=== PATIENT | female | born 1960 | race Caucasian/White ===

== ENCOUNTER 2020-07-13 10:34 | Emergency (ER) | payer BC, SELFPAY ==
--- NOTE | 2020-07-13 10:36 | ED.GENADULT ---
HPI - General Adult General Chief complaint: Chest Pain Stated complaint: nausea,trembling in both hands Time Seen by Provider: 07/13/20 10:36 Source: patient Mode of arrival: ambulatory Limitations: no limitations History of Present Illness HPI narrative: 59-year-old female patient presents to the [facility] with complaints of tremor to the right hand and nausea along with chest pain. Patient states that she was in her kitchen this morning and went to go and recheck with her right hand to get some coffee out of the cabinet and states she started having a tingling sensation to the right side of her head and did feel little lightheaded and dizzy. Patient states that she did start having a tremor to her right hand and developed some nausea. Patient states that this started about 10 AM this morning. Patient states what that when she arrived to the clinic today she started having a little bit of chest tightness. Denies any vomiting. Denies any fevers, body aches or chills. Patient denies taking any medications. Denies any medical history. Patient states she is an active smoker. Review of Systems Review of Systems: Narrative: CONSTITUTIONAL: Denies fever, chills, or sweats. EYES: Denies visual changes, redness, or discharge. ENT: Denies rhinorrhea, congestion, sore throat, or otalgia. CARDIOVASCULAR: Positive chest pain, denies palpitations, or edema. RESPIRATORY: Denies cough or dyspnea. GASTROINTESTINAL: Denies abdominal pain, nausea, vomiting, or diarrhea. GENITOURINARY: Denies dysuria or hematuria. SKIN: Denies rash or itching. MUSCULOSKELETAL: Denies back pain, joint pain, or myalgia. NEUROLOGIC: Positive headache, denies numbness, positive right-sided weakness with tremor to the right hand. PSYCHIATRIC: Denies anxiety or depression. [facility] Surgical History Surgical History (Updated 07/13/20 @ 11:02 by TAMMIE Marcelo) History of appendectomy History of hysterectomy Hx of cholecystectomy Family History Family History (Updated 07/13/20 @ 11:03 by TAMMIE Marcelo) Other Acute myocardial infarction Heart disease Hypertension Social History Social History (Updated 07/13/20 @ 11:03 by TAMMIE Marcelo) Smoking status: Current every day smoker Comments At the time of my signature I agree with nursing past medical history, surgical, social, and family history. There is no relevant family history pertinent to the presenting complaint. Exam Narrative: Exam Narrative: GENERAL: Well-appearing, well-nourished, and in no acute distress. HEAD: Normocephalic, atraumatic. EYES: PERRLA and EOMI. ENT: Nares clear, no rhinorrhea or epistaxis. Mucous membranes moist. NECK: Supple. No lymphadenopathy CHEST: Slight expiratory rhonchi noted to bilateral upper lobes. No respiratory distress. Patient able talk in clear complete sentences. HEART: Regular rate and rhythm. No murmur heard. Normal peripheral pulses. ABDOMEN: Soft, nontender, nondistended, normal active bowel sounds. EXTREMITIES: Normal range of motion. No edema. SKIN: Warm, dry, no rash. NEURO: Alert and oriented x4, GCS 15. Cranial nerves II through XII grossly intact. No focal neurological deficits. Decreased muscle strength and tone to right upper extremity. Weakness to right upper extremity and right lower extremity. normal deep tendon reflexes. Decreased sensation to the right side of the face. Speech is clear. Normal gait. Negative Romberg and no pronator drift Course Vital Signs Vital signs: Vital Signs Temperature 36.7 C 07/13/20 10:45 Pulse Rate 98 07/13/20 10:45 Respiratory Rate 18 07/13/20 10:45 Blood Pressure 143/72 H 07/13/20 10:45 Pulse Oximetry 100 07/13/20 10:45 Temperature 36.7 C 07/13/20 10:45 Pulse Rate 98 07/13/20 10:45 Respiratory Rate 18 07/13/20 10:45 Blood Pressure 143/72 H 07/13/20 10:45 Pulse Oximetry 100 07/13/20 10:45 Vital signs reviewed. The patient has been informed that they ma
[2020-07-13 10:45] VITALS: BP 143/72; PULSE 98; RESP 18; TEMP 36.7; O2SAT 100
[2020-07-13 10:53] LABS: Glucose Point of Care 110 (65-105)
--- NOTE | 2020-07-13 11:03 | PC.NURSE ---
PT REPORTS SHE WAS REACHING FOR AN OBJECT THIS AM, AT WHICH SHE NOTICED TREMORS IN RT HAND AND ARM. PT STATES HER RT HAND AND LEG FEEL WEAK, SHE HAS NUMBNESS AND TINGLING TO RT SIDE. PT HAS DECREASED SENSATION TO RT SIDE OF FACE. PT REPORTS CHEST TIGHTNESS, NAUSEA. PT IS A & O x4, NO FACIAL DROOP NOTED.
[2020-07-13 11:07] VITALS: BP 143/72; PULSE 98; RESP 18; TEMP 36.7; O2SAT 100
[2020-07-13 11:24] LABS: Glucose Point of Care 103 (65-105)
--- NOTE | 2020-07-13 14:21 | ECG_ITS ---
Measurements Intervals [place] Rate: 93 P: 48 [place]: 143 QRS: -11 QRSD: 90 T: 18 QT: 370 QTc: 462 Interpretive Statements SINUS RHYTHM INCOMPLETE RIGHT BUNDLE BRANCH BLOCK BORDERLINE T WAVE ABNORMALITY- INFERIOR LEADS BORDERLINE ECG Electronically Signed On 07-13-2020 14:36:38 CDT by Hung Vo D.O.
== END 2020-07-13 11:00 | disposition short-term general hospital (02) ==
PROVIDERS: Emergency Provider Nurse Practitioner Family; PCP Internal Medicine
DX: M62.81 Muscle weakness (generalized) (principal); R07.9 Chest pain, unspecified; F17.200 Nicotine dependence, unspecified, uncomplicated
CPT/HCPCS: 93005; 99205; G0463

== ENCOUNTER 2020-07-13 11:14 | Emergency (ER) | payer BC, SELFPAY ==
--- NOTE | ~2020-07-13 | CT_ITS ---
EXAMINATION: CT brain wo con DATE: 07/13/2020 11:38 INDICATION: Dizziness. Right facial tingling. TECHNIQUE: Computed tomography (CT) of the head was performed without intravenous contrast. The mA wa s adjusted according to patient size. Iterative reconstruction technique was employed. The dose-lengt h product was 605.33 mGy-cm. COMPARISON: None FINDINGS: There is no intracranial hemorrhage, acute infarction, or abnormal intracranial mass lesion . The ventricles are normal in size. There is mild mucosal thickening in the ethmoid sinuses. The mas toid air cells are normal. IMPRESSION: 1. Normal brain. Reviewed, dictated and finalized at location A. IMPRESSION: 1. Normal brain.
--- NOTE | ~2020-07-13 | XR_ITS ---
EXAMINATION: XR chest 1V DATE: 07/13/2020 11:45 INDICATION: Chest pressure. Right arm tingling. TECHNIQUE: A single frontal view of the chest was obtained. COMPARISON: None. FINDINGS: The chest demonstrates clear lungs without pneumonia, pleural effusion, or pneumothorax. Th e heart size is normal. IMPRESSION: 1. No acute cardiopulmonary disease. Reviewed, dictated and finalized at location A.
[2020-07-13 11:21] VITALS: BP 137/93; PULSE 79; RESP 15; TEMP 36.9; O2SAT 99
--- NOTE | 2020-07-13 11:24 | ECG_ITS ---
Measurements Intervals [place] Rate: 80 P: 27 UT: 151 QRS: 83 QRSD: 86 T: 56 QT: 373 QTc: 431 Interpretive Statements SINUS RHYTHM DELAYED PRECORDIAL R/S TRANSITION BASELINE ARTIFACT- V5 BORDERLINE ECG Electronically Signed On 07-13-2020 12:03:10 CDT by Hung Vo D.O.
[2020-07-13 11:31] VITALS: PULSE 80
[2020-07-13 12:09] VITALS: PULSE 79; RESP 13; O2SAT 97
[2020-07-13 12:15] VITALS: PULSE 72; RESP 12; O2SAT 100
[2020-07-13 12:15] LABS: Basophils Percent Auto 0.3 % (0.2-1.2); Eosinophils Absolute Auto 0.1 K/mm3 (0-0.3); Hematocrit 45.1 % (37.0-47.0); Hemoglobin 14.6 g/dL (12.0-15.0); Immature Granulocyte Absolute 0.03 K/mm3 (0.00-0.031); Immature Granulocyte Percent A 0.3 % (0-0.5); Lymphocytes Absolute Auto 2.68 K/mm3 (0.9-3.2); Lymphocytes Percent Auto 29.2 % (18.3-44.2); Mean Corpuscular HGB Conc 32.4 g/dl (32-36); Mean Corpuscular Hemoglobin 32.3 pg (26-34); Mean Corpuscular Volume 99.8 fl (80-100); Mean Platelet Volume 10.3 fl (7.4-10.4); Monocytes Absolute Auto 0.5 K/mm3 (0.1-0.6); Monocytes Percent Auto 5.2 % (2.6-8.5); Neutrophils Absolute Auto 5.9 K/mm3 (1.3-6.7); Platelet Count Result 243 k/mm3 (150-375); Red Blood Count 4.52 M/mm3 (4.2-5.4); Red Cell Distribution Width 12.5 % (11.5-14.5); White Blood Count 9.2 K/mm3 (4.5-10.0)
[2020-07-13 12:16] VITALS: BP 115/66; PULSE 73; RESP 14; O2SAT 100
[2020-07-13 12:27] LABS: Alanine Aminotransferase 13 U/L (4-35); Albumin Level 4.6 g/dL (3.5-5.1); Alkaline Phosphatase 109 U/L (38-126); Anion Gap 10 mmol/L (8-16); Aspartate Amino Transferase 23 U/L (14-36); Bilirubin,Total 0.6 mg/dL (0.2-1.3); Blood Urea Nitrogen 9 mg/dL (7-17); Calcium 9.5 mg/dL (8.4-10.2); Carbon Dioxide 26 mmol/L (22-30); Chloride 105 mmol/L (98-107); Estimated CRCL calculation 77 ml/min; Estimated Glomerular Filt Rate > 60; Glucose 100 mg/dL (65-105); Potassium 3.8 mmol/L (3.4-5.0); Sodium 141 mmol/L (137-145)
[2020-07-13 12:35] LABS: Add Urine Microscopic? YES; Appearance Urine Clear (Clear); Bacteria Urine Trace /hpf; Bilirubin Urine Negative (Negative); Blood Urine 1+ (Negative); Color Urine Colorless (Yellow); Glucose Urine UA Negative (Negative); Ketones Urine Negative (Negative); Leukocyte Esterase Ur Negative LEU/UL (Negative); Nitrate Urine Negative (Negative); Protein Urine Negative (Negative); RBC Urine 0-2 /hpf (0-2); Squamous Epithelial Cell Urine Rare /hpf (Few); Urobilinogen Urine Negative mg/dL (<2.0); WBC Urine 0-3 /hpf
[2020-07-13 12:38] LABS: Troponin I < 0.012 ng/mL (0.000-0.034)
[2020-07-13 12:42] LABS: Specific Grav Ur 1.004 (1.001-1.035)
--- NOTE | 2020-07-13 14:05 | ED.GENADULT ---
HPI - General Adult General Chief complaint: Unspecified Stated complaint: MULTIPLE C/O Time Seen by Provider: 07/13/20 11:24 Source: patient Mode of arrival: EMS Limitations: no limitations History of Present Illness HPI narrative: Patient presents from the urgent care with multiple complaints. Patient states that she was reaching for something with her right arm when her right arm began to shake. Patient states that she DM became concerned and noticed tingling to the right side of her face. Patient states she never had changes in vision, speech, headache, weakness. Patient states that she sat down and held her arm briefly and the symptoms resolved. Patient states that she did not ever have chest pain or shortness of breath but she did have some mild epigastric discomfort which resolved after a few minutes. Patient has history of ND or stroke. Patient reports that she is a smoker. Patient denies hormonal therapy. Patient does not have any symptoms upon arrival to the emergency department. Related Data Home Medications Medication Instructions Recorded Confirmed No Home Medications 07/13/20 07/13/20 Allergies Allergy/AdvReac Type Severity Reaction Status Date / Time azithromycin AdvReac Abdominal Verified 07/13/20 11:26 Pain morphine AdvReac Nausea and Verified 07/13/20 11:26 Vomiting Review of Systems Review of Systems: Narrative: CONSTITUTIONAL: Denies fever, chills, or sweats. EYES: Denies visual changes, redness, or discharge. ENT: Denies rhinorrhea, congestion, sore throat, or otalgia. CARDIOVASCULAR: Denies chest pain, palpitations, or edema. RESPIRATORY: Denies cough or dyspnea. GASTROINTESTINAL: Reports resolved epigastric discomfort denies abdominal pain, nausea, vomiting, or diarrhea. GENITOURINARY: Denies dysuria or hematuria. SKIN: Denies rash or itching. MUSCULOSKELETAL: Reports resolved tremor denies back pain, joint pain, or myalgia. NEUROLOGIC: Reports resolved tingling denies headache, numbness, dizziness, or weakness. PSYCHIATRIC: Denies anxiety or depression. REPLACED BY [facility] Surgical History Surgical History (Updated 07/13/20 @ 11:02 by TAMMIE Marcelo) History of appendectomy History of hysterectomy Hx of cholecystectomy Family History Family History (Updated 07/13/20 @ 11:03 by TAMMIE Marcelo) Other Acute myocardial infarction Heart disease Hypertension Social History Social History (Updated 07/13/20 @ 11:03 by RICHARD Marcelo Smoking status: Current every day smoker Exam Narrative: Exam Narrative: GENERAL: Well-appearing, well-nourished, and in no acute distress. HEAD: Normocephalic, atraumatic. EYES: PERRLA and EOMI. ENT: Nares clear, no rhinorrhea or epistaxis. Mucous membranes moist. Oropharynx without tonsillar hypertrophy exudate or other lesions. Bilateral TMs pearly clark nonbulging NECK: Supple. No adenopathy or masses. No carotid bruits or JVD CHEST: Clear to auscultation. No respiratory distress. No wheezes rales or rhonchi HEART: Regular rate and rhythm. No murmur heard. Normal peripheral pulses. ABDOMEN: Soft, nontender, nondistended, normal active bowel sounds. EXTREMITIES: No tremor noted to upper extremities. Normal range of motion. No edema. SKIN: Warm, dry, no rash. NEURO: No focal deficits. There is no facial asymmetry. Patient is able to smile, frown, raise eyebrows symmetrically. There is no upper or lower extremity deficits or unilateral deficits. Patient speech is appropriate. alert and oriented x3. PSYCH: Normal mood and affect. Course Vital Signs Vital signs: Vital Signs Temperature 98.4 F 07/13/20 11:21 Pulse Rate 79 07/13/20 11:21 Respiratory Rate 15 07/13/20 11:21 Blood Pressure 137/93 H 07/13/20 11:21 Pulse Oximetry 99 07/13/20 11:21 Temperature 98.4 F 07/13/20 11:21 Pulse Rate 73 07/13/20 12:16 Respiratory Rate 14 07/13/20 12:16 Blood Pressure 115/66 07/13/20 12:16 Pulse Oxim
== END 2020-07-13 14:18 | disposition home or self-care (01) ==
PROVIDERS: Physician Assistant; Emergency Provider Emergency Medicine
DX: R20.2 Paresthesia of skin (principal); M12.9 Arthropathy, unspecified; F17.200 Nicotine dependence, unspecified, uncomplicated; R94.31 Abnormal electrocardiogram [ECG] [EKG]
CPT/HCPCS: 36415; 70450; 71045; 80053; 81001; 84484; 85025; 93005; 99284

== ENCOUNTER → 2021-07-03 14:35 | Outpatient (CLI) | payer OTHER, SELFPAY ==
--- NOTE | ~2021-07-03 | MM_ITS ---
EXAMINATION: MM screening flaquita BI w sp HISTORY: Screening TECHNIQUE: Craniocaudal and mediolateral oblique 3-D tomosynthesis images were obtained and synthetic 2-D images were generated. CAD analysis was submitted and interpreted. COMPARISON: No prior mammogram is available for comparison at this institution. BREAST PARENCHYMAL COMPOSITION: There are scattered areas of fibroglandular density. FINDINGS: There is no evidence of suspicious mass, calcification, or architectural distortion to sugg est malignancy in either breast. There has been no suspicious interval change. IMPRESSION: 1. No mammographic evidence of malignancy. 2. Recommend routine screening mammography in one year. BI-RADS Category 1: Negative Reviewed, dictated and finalized at location A.
== END ==
DX: Z12.31 Encounter for screening mammogram for malignant neoplasm of breast (principal)
CPT/HCPCS: 77063; 77067

== ENCOUNTER 2021-09-24 16:39 | Emergency (ER) | payer OTHER, SELFPAY ==
[2021-09-24 16:51] VITALS: BP 141/89; PULSE 94; RESP 16; TEMP 36.8; O2SAT 100
--- NOTE | 2021-09-24 17:11 | ED.URI ---
HPI - URI/Sore Throat General Chief Complaint: Upper Respiratory Infection Stated Complaint: Sinus,Fatigue, Time Seen by Provider: 09/24/21 17:01 Source: patient and RN notes reviewed Mode of arrival: ambulatory Limitations: no limitations History of Present Illness HPI Narrative: Patient presents today with 2-day history of congestion and sinus pressure, chills, headache, fatigue, cough, postnasal drip. Denies fever or shortness of breath. She has tried no medication for symptoms prior to arrival. Denies any history of asthma or COPD. She has been vaccinated against COVID-19 and influenza. Patient works at a [employer] and was exposed to COVID-19 on 09/17/2021. MD elicited complaint: cough and nasal congestion Related Data Home Medications Medication Instructions Recorded Confirmed No Home Medications 07/13/20 09/24/21 Allergies Allergy/AdvReac Type Severity Reaction Status Date / Time azithromycin AdvReac Abdominal Verified 09/24/21 16:51 Pain morphine AdvReac Nausea and Verified 09/24/21 16:51 Vomiting Review of Systems Review of Systems: CONSTITUTIONAL: Denies body aches, fever, or sweats.+ Fatigue chills EYES: Denies visual changes, redness, or discharge. ENT: Denies rhinorrhea, sore throat, or otalgia.+ Congestion, sinus pressure, postnasal drip CARDIOVASCULAR: Denies chest pain, palpitations, or edema. RESPIRATORY: Denies dyspnea.+ Cough GASTROINTESTINAL: Denies abdominal pain, nausea, vomiting, or diarrhea. GENITOURINARY: Denies dysuria or hematuria. SKIN: Denies rash, itching, or wounds. MUSCULOSKELETAL: Denies back pain, joint pain, or myalgia. NEUROLOGIC: Denies numbness, tingling, or weakness.+ Headache PSYCH: Denies depression or anxiety. [facility] Surgical History Surgical History History of appendectomy History of hysterectomy Hx of cholecystectomy Family History Family History Other Acute myocardial infarction Heart disease Hypertension Social History Social History Smoking status: Current every day smoker Comments At time of signature, I have reviewed and agree with nursing past medical, surgical, social and family history unless otherwise noted. Please see nursing chart for further information. There is no relevant family history pertinent to the presenting complaint Exam Narrative: GENERAL: Well-appearing, well-nourished, and in no acute distress. HEAD: Normocephalic, atraumatic. EYES: EOMI. No redness or drainage. Conjunctivae normal. ENT: Mucous membranes pink and moist. Nares congested. Turbinates mildly edematous with rhinorrhea. TMs normal bilaterally. Throat normal. Uvula midline. NECK: Normal AROM. Supple. No lymphadenopathy. CHEST: No respiratory distress. Clear to auscultation. HEART: Regular rate and rhythm. No murmur appreciated. Normal peripheral pulses. EXTREMITIES: Normal range of motion. No edema. SKIN: Warm, dry, no rash. Capillary refill normal. Normal skin turgor. NEURO: No focal deficits. Alert and oriented x3. Gait steady. PSYCH: Normal affect. No signs of depression or anxiety. Course Course Level of Care: Express Care Visit Vital Signs Vital signs: Vital Signs Temperature 98.3 F 09/24/21 16:51 Pulse Rate 94 09/24/21 16:51 Respiratory Rate 16 09/24/21 16:51 Blood Pressure 141/89 H 09/24/21 16:51 Pulse Oximetry 100 09/24/21 16:51 Temperature 98.3 F 09/24/21 16:51 Pulse Rate 94 09/24/21 16:51 Respiratory Rate 16 09/24/21 16:51 Blood Pressure 141/89 H 09/24/21 16:51 Pulse Oximetry 100 09/24/21 16:51 Reviewed. Pt has been instructed to follow up with her PCP regarding her elevated blood pressure today. MDM - URI/Sore Throat Differential Diagnosis Differential diagnosis: Likely upper respiratory infection, viral infect
== END 2021-09-24 17:16 | disposition home or self-care (01) ==
PROVIDERS: Emergency Provider Nurse Practitioner; PCP Internal Medicine
DX: J06.9 Acute upper respiratory infection, unspecified (principal); Z20.822 Contact with and (suspected) exposure to COVID-19; F17.200 Nicotine dependence, unspecified, uncomplicated
CPT/HCPCS: 87426; 99213; C9803; G0463

== ENCOUNTER 2022-02-02 10:01 | Emergency (ER) | payer OTHER, SELFPAY ==
[2022-02-02 10:13] VITALS: BP 133/79; PULSE 84; RESP 18; TEMP 36.5; O2SAT 100
--- NOTE | 2022-02-02 10:18 | ED.URI ---
HPI - URI/Sore Throat General Chief Complaint: Upper Respiratory Infection Stated Complaint: nasal congestion,diarrhea Time Seen by Provider: 02/02/22 10:18 Source: patient Mode of arrival: ambulatory Limitations: no limitations History of Present Illness HPI Narrative: 61-year-old female presents with complaint of nasal congestion, runny nose, dry cough for 2 days. Yesterday began having body aches, chills, diarrhea, headache. Patient's granddaughter tested positive for COVID this morning. Granddaughter does live with patient. Patient is vaccinated for COVID. Denies chest pain and shortness of breath. She is well-appearing. All systems reviewed and negative except as noted above. Related Data Home Medications Medication Instructions Recorded Confirmed phentermine 15 mg DAILY 02/02/22 02/02/22 Allergies Allergy/AdvReac Type Severity Reaction Status Date / Time azithromycin AdvReac Abdominal Verified 02/02/22 10:21 Pain morphine AdvReac Nausea and Verified 02/02/22 10:21 Vomiting Review of Systems Review of Systems: CONSTITUTIONAL: Denies fever, chills, or sweats. EYES: Denies visual changes, redness, or discharge. ENT: Reports rhinorrhea, congestion. Denies sore throat, or otalgia. CARDIOVASCULAR: Denies chest pain, palpitations, or edema. RESPIRATORY: Reports cough. Denies dyspnea. GASTROINTESTINAL: Denies abdominal pain, nausea, vomiting. Reports diarrhea. GENITOURINARY: Denies dysuria or hematuria. SKIN: Denies rash or itching. MUSCULOSKELETAL: Denies back pain, joint pain, or myalgia. NEUROLOGIC: Denies headache, numbness, or weakness. PSYCHIATRIC: Denies anxiety or depression. All other systems reviewed are negative, except as documented in HPI. [facility] Surgical History Surgical History History of appendectomy History of hysterectomy Hx of cholecystectomy Family History Family History Other Acute myocardial infarction Heart disease Hypertension Social History Social History Smoking status: Current every day smoker Comments At time of signature, agree with nursing past medical, surgical, social and family history. There is no relevant family history pertinent to the presenting complaint. Exam Narrative: GENERAL: This is a well-nourished, well-developed patient, in no apparent distress. HEAD: normocephalic, atraumatic. EYES: PERRL. Sclera clear/white. Vision is grossly intact. EARS: External ears normal, auditory canals clear and without drainage. Fluid to bilateral TMs, dull light reflex. NOSE: External nose normal with no obvious nasal discharge, nares without redness, no rhinorrhea. THROAT: Mucous membranes moist, no erythema to posterior pharynx. Clear postnasal drainage noted. NECK: Neck supple, non-tender without lymphadenopathy, masses or thyromegaly. CARDIOVASCULAR: Regular rate and rhythm without murmurs, gallops, or rubs. RESPIRATORY: Clear to auscultation. Breath sounds equal bilaterally. No wheezes, rales, or rhonchi. GASTROINTESTINAL: Abdomen soft, non-tender, nondistended. Bowel sounds are active. No hepato-splenomegaly, or palpable masses. No guarding. SKIN: warm, Dry, intact with no suspicious lesions or rash, good texture and turgor. NEURO: awake, alert, and oriented to person, place and time. There were no obvious focal neurologic abnormalities. EXTREMITIES: Normal range of motion to all extremities. Course Course Level of Care: Express Care Visit Vital Signs Vital signs: Vital Signs Temperature 36.5 C 02/02/22 10:13 Pulse Rate 84 02/02/22 10:13 Respiratory Rate 18 02/02/22 10:13 Blood Pressure 133/79 02/02/22 10:13 Pulse Oximetry 100 02/02/22 10:13 Temperature 36.5 C 02/02/22 10:13 Pulse Rate 84 02/02/22 10:13 Respiratory Rate 18 02/02/22 10
[2022-02-02 19:49] LABS: SARS-CoV-2 RNA PCR Negative
== END 2022-02-02 10:46 | disposition home or self-care (01) ==
PROVIDERS: Emergency Provider Nurse Practitioner Family
DX: B34.9 Viral infection, unspecified (principal); Z20.822 Contact with and (suspected) exposure to COVID-19; F17.200 Nicotine dependence, unspecified, uncomplicated
CPT/HCPCS: 87426; 99213; C9803; G0463; U0003; U0005

== ENCOUNTER → 2022-10-08 10:55 | Outpatient (CLI) | payer OTHER, SELFPAY ==
--- NOTE | ~2022-10-08 | MM_ITS ---
EXAMINATION: MM screening flaquita BI w sp HISTORY: Screening mammogram TECHNIQUE: Craniocaudal and mediolateral oblique 3-D tomosynthesis images were obtained and synthetic 2-D images were generated. CAD analysis was submitted and interpreted. COMPARISON: 07/03/2021 BREAST PARENCHYMAL COMPOSITION: There are scattered areas of fibroglandular density. FINDINGS: No suspicious mass, calcification, or architectural distortion are identified in either audrey ast to suggest malignancy. There has been no suspicious interval change. IMPRESSION: 1. No mammographic evidence of malignancy. 2. Recommend routine screening mammography in one year. BI-RADS Category 1: Negative Reviewed, dictated and finalized at location A. TANNER
== END ==
DX: Z12.31 Encounter for screening mammogram for malignant neoplasm of breast (principal)
CPT/HCPCS: 77063; 77067

== ENCOUNTER 2023-08-26 12:02 | Emergency (ER) | payer OTHER, SELFPAY ==
[2023-08-26 12:28] VITALS: BP 137/72; PULSE 87; RESP 18; TEMP 36.3; O2SAT 100
--- NOTE | 2023-08-26 13:08 | ED.URI ---
HPI - URI/Sore Throat General Chief Complaint: Upper Respiratory Infection Stated Complaint: cold symptoms Time Seen by Provider: 08/26/23 12:58 Source: patient and RN notes reviewed Mode of arrival: ambulatory Limitations: no limitations History of Present Illness HPI Narrative: Patient presents today complaining of congestion, fatigue, headache, cough since yesterday. Denies fever shortness of breath. Patient was exposed to COVID-19 yesterday at work. Works at a [employer]. Currently rates her headache 05/02 and has been taking DayQuil with mild relief. Related Data Allergies Allergy/AdvReac Type Severity Reaction Status Date / Time azithromycin AdvReac Abdominal Verified 08/26/23 12:47 Pain morphine AdvReac Nausea and Verified 08/26/23 12:47 Vomiting Review of Systems Review of Systems: CONSTITUTIONAL: Denies body aches, fever, chills, or sweats.+ fatigue EYES: Denies visual changes, redness, or discharge. ENT: Denies rhinorrhea, sore throat, or otalgia.+ congestion CARDIOVASCULAR: Denies chest pain, palpitations, or edema. RESPIRATORY: Denies dyspnea.+ cough GASTROINTESTINAL: Denies abdominal pain, nausea, vomiting, or diarrhea. GENITOURINARY: Denies dysuria or hematuria. SKIN: Denies rash, itching, or wounds. MUSCULOSKELETAL: Denies back pain, joint pain, or myalgia. NEUROLOGIC: Denies numbness, tingling, or weakness.+ headache PSYCH: Denies depression or anxiety. [facility] Surgical History Surgical History History of appendectomy History of hysterectomy Hx of cholecystectomy Family History Family History Other Acute myocardial infarction Heart disease Hypertension Social History Social History Smoking status: Current every day smoker Comments At time of signature, I have reviewed and agree with nursing past medical, surgical, social and family history unless otherwise noted. Please see nursing chart for further information. There is no relevant family history pertinent to the presenting complaint Exam Narrative: GENERAL: Mildly ill-appearing, well-nourished, and in no acute distress. HEAD: Normocephalic, atraumatic. EYES: EOMI. No redness or drainage. Conjunctivae normal. ENT: Mucous membranes pink and moist. Nares congested. No rhinorrhea. TMs normal bilaterally. Throat normal. Uvula midline. NECK: Normal AROM. Supple. No lymphadenopathy. CHEST: No respiratory distress. Rhonchi throughout. HEART: Regular rate and rhythm. No murmur appreciated. EXTREMITIES: Normal range of motion. No edema. SKIN: Warm, dry, no rash. Capillary refill normal. Normal skin turgor. NEURO: No focal deficits. Alert and oriented x3. Gait steady. PSYCH: Normal affect. No signs of depression or anxiety. Course Course Level of Care: Express Care Visit Vital Signs Vital signs: Vital Signs Temperature 97.4 F L 08/26/23 12:28 Pulse Rate 87 08/26/23 12:28 Respiratory Rate 18 08/26/23 12:28 Blood Pressure 137/72 08/26/23 12:28 Pulse Oximetry 100 08/26/23 12:28 Oxygen Delivery Room Air 08/26/23 12:28 Temperature 97.4 F L 08/26/23 12:28 Pulse Rate 87 08/26/23 12:28 Respiratory Rate 18 08/26/23 12:28 Blood Pressure 137/72 08/26/23 12:28 Pulse Oximetry 100 08/26/23 12:28 Oxygen Delivery Room Air 08/26/23 12:28 Reviewed MDM - URI/Sore Throat MDM Narrative Medical decision making narrative: COVID-19 positive. Patient requesting rx for Paxlovid as she took it last year and it helped her. Will send rx to pharmacy. Discussed [id number] treatment as well. Anticipatory guidance given. Differential Diagnosis Differential diagnosis: Likely upper respiratory infection, sinusitis, viral infection, influenza and other (COVID-19) Lab Data Attestation: I reviewed the alondra
== END 2023-08-26 13:22 | disposition home or self-care (01) ==
PROVIDERS: Emergency Provider Nurse Practitioner
DX: U07.1 COVID-19 (principal); F17.200 Nicotine dependence, unspecified, uncomplicated
CPT/HCPCS: 87426; 87804; 99213; C9803; G0463

== ENCOUNTER 2024-04-14 11:24 | Emergency (ER) | payer OTHER, SELFPAY ==
[2024-04-14 11:39] VITALS: BP 134/92; PULSE 83; RESP 16; TEMP 36.8; O2SAT 100
--- NOTE | 2024-04-14 11:53 | ED.URI ---
HPI - URI/Sore Throat General Chief Complaint: Upper Respiratory Infection Stated Complaint: sinus issues Time Seen by Provider: 04/14/24 11:50 Source: patient, RN notes reviewed and old records reviewed Mode of arrival: ambulatory Limitations: no limitations History of Present Illness HPI Narrative: 63 year old female who presents to express car with complaints of not feeling well all week last week with headache, nasal congestion and drainage, cough, fatigue with fevers noted up to 100F on and Saturday. Patient reports that she did home COVID test on Saturday which was positive and she repeated test this morning which was negative. Patient reports that she has continued headache, sinus congestion, sinus pressure with cough and her right ear hurts. Patient reports that she has been taking DayQuil and Tylenol for her headache. Patient reports that she has not had fever since Saturday. MD elicited complaint: fever (up to 100F), cough, rhinorrhea, nasal congestion, sinus pain and other (fatigue, headache) Onset (ago): day(s) (started with increased symptoms and 10 of April) Severity: moderate Able to tolerate fluids by mouth: Yes Treatments prior to arrival: acetaminophen and other (DayQuil) Related Data Allergies Allergy/AdvReac Type Severity Reaction Status Date / Time azithromycin AdvReac Abdominal Verified 08/26/23 12:47 Pain morphine AdvReac Nausea and Verified 08/26/23 12:47 Vomiting Review of Systems Review of Systems: CONSTITUTIONAL: Reports malaise, chills, sweats, fever, none since , reports fatigue EYES: Denies visual changes, redness, or discharge. ENT: Reports rhinorrhea, congestion, sinus pain, right otalgia and sore throat. CARDIOVASCULAR: Denies chest pain, palpitations, or edema. RESPIRATORY: Reports cough.? Denies dyspnea. GASTROINTESTINAL: Denies abdominal pain, nausea, vomiting, diarrhea SKIN: Denies rash or itching. MUSCULOSKELETAL: Denies myalgia. NEUROLOGIC: Reports headache. All systems reviewed & are unremarkable except as noted in HPI and below PMFSH Surgical History Surgical History History of appendectomy History of hysterectomy Hx of cholecystectomy Family History Family History Other Acute myocardial infarction Heart disease Hypertension Social History Social History Smoking packs per day: 1 Smoking cigarettes per day: 20.0 Years smoked: 45 Smoking pack-years: 45.00 Smoking status: Current every day smoker Alcohol intake: current Alcohol use details: social Substance use type: does not use Gender identity (if verbalized by the patient): Female Comments At time of signature, agree with nursing past medical, surgical, social and family history. There is no relevant family history pertinent to the presenting complaint Exam Narrative: GENERAL: Well-appearing, well-nourished, and in no acute distress. HEAD: Normocephalic EYES: PERRLA, conjunctivae clear ENT: Nares clear, turbinates edematous and erythematous, clear to light yellow discharge. Mucous membranes moist.Right TM red and bulging,Left TM pearly clark with dull light reflex bilaterally; no tragal tenderness. Oropharynx erythematous without lesions. Tonsils not enlarged and without exudate, no drooling, no hoarseness, no trismus, uvula midline.post nasal drainage NECK: Supple. No lymphadenopathy CHEST: Decreased to auscultation, breath sounds equal. No wheezing, rhonchi, rales, or stridor. No respiratory distress, speaks in full sentences.productive cough yellow SAO2 100% on room air HEART: Regular rate and rhythm. No murmur heard. SKIN: Warm, dry, no rash. NEURO: Alert and oriented x3. PSYCH: Normal mood and affect Course Course Emergency Course: Patient is aware of diagnosis,
[2024-04-14 12:32] LABS: EDINFLUASCREEN Negative; EDINFLUBSCREEN Negative
== END 2024-04-14 12:22 | disposition home or self-care (01) ==
PROVIDERS: Emergency Provider Registered Nurse
DX: H66.91 Otitis media, unspecified, right ear (principal); R05.1 Acute cough; R09.81 Nasal congestion; Z20.822 Contact with and (suspected) exposure to COVID-19; F17.210 Nicotine dependence, cigarettes, uncomplicated
CPT/HCPCS: 87426; 87804; 99213; G0463

== ENCOUNTER 2024-04-20 10:01 | Outpatient (CLI) | payer OTHER, SELFPAY ==
--- NOTE | ~2024-04-20 | MM_ITS ---
EXAMINATION: MM screening flaquita BI w sp HISTORY: Screening TECHNIQUE: Craniocaudal and mediolateral oblique 3-D tomosynthesis images were obtained and synthetic 2-D images were generated. CAD analysis was submitted and interpreted. COMPARISON: Comparison to multiple prior studies sequentially, with oldest reviewed study dated 06/23. BREAST PARENCHYMAL COMPOSITION: Not dense: There are scattered areas of fibroglandular density. FINDINGS: There is no evidence of suspicious mass, calcification, or architectural distortion to sugg est malignancy in either breast. There has been no suspicious interval change. IMPRESSION: 1. No mammographic evidence of malignancy. 2. Recommend routine screening mammography in one year. BI-RADS Category 1: Negative Reviewed, dictated and finalized at location B.
== END 2024-04-20 10:02 ==
PROVIDERS: PCP Nurse Practitioner; Visit Provider Nurse Practitioner
DX: Z12.31 Encounter for screening mammogram for malignant neoplasm of breast (principal)
CPT/HCPCS: 77063; 77067

== ENCOUNTER 2024-11-06 09:47 | Emergency (ER) | payer OTHER, SELFPAY ==
--- NOTE | 2024-11-06 09:47 | ED.URI ---
HPI - URI/Sore Throat General Chief Complaint: Upper Respiratory Infection Stated Complaint: cough Time Seen by Provider: 11/06/24 09:47 Source: patient Mode of arrival: ambulatory Limitations: no limitations History of Present Illness HPI Narrative: Coleen is a 64 year old female patient presenting to the clinic today with c/o cough, fever, body aches, chills, and chest congestion x 1 day. She reports feels as though she got ran over by a [employer] truck. Denies any chest pain or shortness of breath. MD elicited complaint: sore throat and nasal congestion Related Data Allergies Allergy/AdvReac Type Severity Reaction Status Date / Time prednisone AdvReac Mild Itching Verified 11/06/24 10:07 azithromycin AdvReac Abdominal Verified 11/06/24 10:07 Pain morphine AdvReac Nausea and Verified 11/06/24 10:07 Vomiting Review of Systems Review of Systems: Pertinent positives per HPI. Patient denies any rash, headache, visual changes, dizziness, shortness of breath, chest pain, palpitations, nausea, vomiting, diarrhea, constipation, abdominal pain, or any urinary issues. PMFSH Surgical History Surgical History History of appendectomy History of hysterectomy Hx of cholecystectomy Family History Family History Other Acute myocardial infarction Heart disease Hypertension Social History Social History Smoking packs per day: 1 Smoking cigarettes per day: 20.0 Years smoked: 45 Smoking pack-years: 45.00 Smoking status: Current every day smoker Alcohol intake: current Alcohol use details: social Substance use type: does not use Gender identity (if verbalized by the patient): Female Comments At the time of my signature, I reviewed and agree with the nursing past medical, surgical, social, and family history. There is no relevant family history pertinent to the patient complaint. Exam Narrative: General: Well-developed, well nourished, in no apparent distress Head: Normocephalic, atraumatic Eyes: Pupils equally round and reactive to light bilaterally, EOM intact, sclera and conjunctive clear, no discharge, lids normal Ears: TMs intact and clear, ear canals clear, no drainage, grossly hearing normal. Nose: Nares patent, no discharge, no inflammation, no sinus tenderness. Mouth: Oral pharynx without lesions or masses, good dentition, MMM. Neck: Supple, trachea midline, no enlargement of anterior or posterior cervical nodes, no thyroid masses or goiter palpable. Cardio: Regular rate and rhythm, s1 and s2 normal, no murmur appreciated. Resp: Clear to auscultation bilaterally, no rhonchi, rales, wheezing or rubs Course Course Emergency Course: Portions of this record may have been created with voice recognition software. Level of Care: Express Care Visit Vital Signs Vital signs: Vital Signs Temperature 36.8 C 11/06/24 09:58 Pulse Rate 91 11/06/24 09:58 Respiratory Rate 18 11/06/24 09:58 Blood Pressure 129/59 L 11/06/24 09:58 Pulse Oximetry 94 11/06/24 09:58 Oxygen Delivery Room Air 11/06/24 09:58 Temperature 36.8 C 11/06/24 09:58 Pulse Rate 91 11/06/24 09:58 Respiratory Rate 18 11/06/24 09:58 Blood Pressure 129/59 L 11/06/24 09:58 Pulse Oximetry 94 11/06/24 09:58 Oxygen Delivery Room Air 11/06/24 09:58 Vital signs reviewed MDM - URI/Sore Throat MDM Narrative Medical decision making narrative: At the time of visit patient is resting comfortably on the exam table. Patient appears to be nontoxic. Labs: COVID testing was negative. Influenza testing was positive for influenza A. Plan: Patient has influenza A. Prescription for Tamiflu and albuterol inhaler was sent to the pharmacy. Risk and benefits of the Tamiflu was discussed with the patient she voiced understanding and would like to try the medication. Supportive measures were discussed with the patient and they voiced understanding discharge instructions and agrees to treatment plan. Return precautions reviewed Differential Diagnosis Differential diagnosis: Likely upper respiratory infection, otitis media, sinusitis, viral infection, bronchitis, influenza, pharyngitis and other (COVID) Discharge Plan Discharge Clinical Impression: Influenza A Patient Disposition: Home, Self-Care Condition: Stable Instructions: Antibiotic Form, Influenza (ED) Additional Instructions: Influenza a testing is positive in the clinic today. COVID testing was negative Take prescription medications only as prescribed-tamiflu and albuterol inhaler Increase fluids and stay well hydrated Tylenol/motrin for pain/fever Flonase and OTC antihistamines as directed Vicks vapor rub to open sinuses Sinus rinses for congestion Cepacol spray, cough drops, throat lozenges, warm tea with honey/lemon, gargle salt water to soothe throat BRAT diet for diarrhea Clear liquids x 24 hours then advance as tolerated for nausea/vomiting Go to the ED if you develop a worsening in your condition- high fever not controlled by Tylenol or Motrin, dehydration, weakness, lethargy, shortness of breath, or chest pain. Follow up with your PCP in 3-5 days if symptoms persist. Patient Language: Urugu[place] Prescriptions: New oseltamivir [Tamiflu] 75 mg capsule 75 mg PO Q12H 5 Days Qty: 10 0RF albuterol sulfate 90 mcg/actuation HFA aerosol inhaler 2 puff inhalation Q4-6H PRN (Reason: shortness of breath or wheezing) 30 Days Qty: 8.5 0RF Follow-up/Referrals: Ruchi,MAYKEL Herndon [Primary Care Provider] - Stand Alone Forms: Work/School Release IP Time of Disposition: 10:15 Quality NIHSS Nursing Documentation ED NIHSS nursing documentation: reviewed/agree
--- OUTSIDE RECORDS SUMMARY | 2024-11-06 09:52 | XMS_ITS | Encounter Summary ---
Author Organization [facility] Address 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
--- OUTSIDE RECORDS SUMMARY | 2024-11-06 09:52 | XMS_ITS | Clinical Summary ---
Author Organization [facility] Address [address] [place] [address] Phone Care Team Providers Care Technology Assistant Name Role Phone Jeffery Landa Primary Care Provider +1- [phone] Allergies Active Allergy Reactions Criticality Noted Date Comments Azithromycin Nausea and Vomiting Low 07/10/2005 Morphine Nausea and Vomiting Low 07/02/2012 Medications Phentermine 15 mg CapsuleIndicati ons:Obesity (BMI 30.0-34.9) Take 1 Capsule (15 mg) by mouth daily. 30 Capsule 12/09/2023 Active Active Problems Patient Care Coordination No te Formatting of this note migh t be different from the original. Primary Care: Sahil Voss MD Referring Provider: Sanjay Cardona MD [address] [place] [id number] Other: Problem Noted Date Diagnosed Date History of adenomatous polyp of colon 12/03/2022 Obesity (BMI 30.0-34.9) 08/13/2019 Chronic rhinitis 08/13/2019 2009: DaTLH/BSO 10/24/2015 Overview (10/24/2015): H/o hgsil Hyperlipidemia 05/28/2012 Tobacco use disorder 08/29/2006 Resolved Problems Problem Noted Date Diagnosed Date Resolved Date Overweight 03/11/2017 10/31/2021 CHLOE (serous otitis media) 06/26/2016 Breast lump on left side at 12 o'clock position 10/28/2015 03/11/2017 Urinary, incontinence, stress female 10/24/2015 10/31/2021 Bronchitis, acute 10/04/2015 03/11/2017 Sprain of neck 02/06/2008 05/27/2012 Alterations of sensations, l ate effect of cerebrovascular disease(438.6) 10/06/2007 2 Pityriasis versicolor 05/03/20052011 Painful respiration 05/02/2005 05/27/20 12 ACUTE SINUSITIS NOS 05/02/2005 05/27/20 12 Myalgia and myositis, unspecified 05/02/2005 03/11/2017 BRONCHITIS NOS 05/02/2005 05/27/2012 DEPRESSIVE DISORDER NEC 05/02/200512/2011 Encounters Date Type Department Care Team Description 10/15/2024 External Device Data ST[facility] ABSTRACTION Provider, Abstract 10/06/2024 External Device Data ST[facility] ABSTRACTION Provider, Abstract from Last 3 Months Immunizations Immunization Administration Dates Next Due (PREVNAR 20)(6 WKS UP) PNEUM OCOCCAL CONJUGATE VACCINE 20-VALENT (PCV20), POLYSACCHARIDE QDU814 CONJUGATE, ADJUVANT 0.5 ML (PF) IM 12/05/2022 Influenza Seasonal Unspecified Formulation IM ,07/22/2014 Family History Medical History Relation Name Comments Other Brother 1 kidney stone Other Brother 2 kidney stone Diabetes Father Heart Disease Father Prostate Cancer Father Unknown Father kidney stone Breast Cancer Maternal Aunt Healthy Mother Other Sister kidney stone Relation Name Status Comments Brother 1 Alive Brother 2 Alive Father Alive Maternal Aunt Mother Alive Sister Alive Social History Tobacco Use Types Packs/Day Years Used Date Smoking Tobacco: Every Day Cigarettes 1 30 Passive Smoke Exposure: Past Smokeless Tobacco: Never Tobacco Cessation:Ready to Q uit: No; Counseling Given: No Alcohol Use Standard Drinks/Week Comments Yes 0 (1 standard drink = 0.6 oz pur e alcohol) moderate Comments No Sex and Gender Information Value Date Recorded Sex Assigned at Not on file Legal Sex Female 3:35 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 Gender Identity Not on file Sexual Orientation Not on file Occupation Industry Job Start Date Job End Date Not on file Not on file Not on file Not on file Last Filed Vital Signs Vital Sign Reading Time Taken Comments Blood Pressure 124/82 12/09/2023 1:34 PM CDT Pulse 73 12/09/2023 1:34 PM CDT Temperature 36.9 C (98.4 F) 12/22/2021 10:21 AM CDT Respiratory Rate 14 12/09/2023 1:34 PM CDT Oxygen Saturation 95% 12/09/2023 1:34 PM CDT Inhaled Oxygen Concentration - - Weight 78.5 kg (173 lb) 12/09/2023 1:34 PM CDT Height 160 cm (5' 3 ) 12/09/2023 1:34 PM CDT Body Mass Index 30.65 12/09/2023 1:34 PM CDT Plan of Treatment Health Maintenance Due Date Last Done Comments DTAP/TDAP/TD VACCINES (1 - Tdap) 1981 FIT/FOBT Q 1 year 2007 Flex Sig/CT Colonography Q 5 years 2007 CERVICAL CANCER SCREENING 09/23/2011 09/23/2008 ZOSTER VACCINE (1 of 2) 2012 COLORECTAL SCREENING 08/12/2020 08/12/2015 BREAST CANCER SCREENING 10/08/2023 10/08/19 23, 07/03/2021, 10/11/2015, Additional history exists Colorectal Cancer Screening 12/25/2023 Lung Cancer Screening 12/25/2023 12/24/2022 INFLUENZA VACCINE (#1) 2024 2, 07/24/2019, 07/22/2014 Pre-Diabetes and Diabetes Screening 12/08/2026 12/09/2023, 11/22/2022, 05/27/2012 FIT-DNA Q 3 years 12/23/2026 12/24/2023 RSV VACCINE (60+ or ) (1 - 1-dose 75+ series) 2037 PNEUMOCOCCAL VACCINE 0-64 YEARS Completed 3 Procedures Procedure Name Priority Date/Time Associated Diagnosis Comments COLON CANCER SCREEN, STOOL DNA Routine 12/24/2023 1:00 PM CDT Screening for colorectal cancer HEMOGLOBIN A1C Routine 12/09/2023 11:07 AM CDT Encounter for routine adult health examination with abnormal findings CT LUNG SCREENING (LDCT BASELINE OR ANNUAL) Routine 12/24/2022 1:42 PM CDT Cigarette nicotine dependence without complication Current smoker MAMMO DIAGNOSTIC BILATERAL W OR WO CAD Routine 10/08/2022 from Last 3 Months or Most Recently Relevant to Health Maintenance Results * COLON CANCER SCREEN, STOOL DNA (12/24/2023 1:00 PM CDT) COLOGUARD RESULT Negative Negative [employer] Comment: NEGATIVE TEST RESULT. A negative Cologuard result indicates a low likelihood that a colorectal cancer (CRC) or advanced adenoma (adenomatous polyps with more advanced pre-malignant features) is present. The chance that a person with a negative Cologuard test has a colorectal cancer is less than 1 in 1500 (negative predictive value >99.9%) or has an advanced adenoma is less than 5.3% (negative predictive value 94.7%). These data are based on a prospective cross-sectional study of 10,000 individuals at average risk for colorectal cancer who were screened with both Cologuard and colonoscopy. (Liset Valero et al, N Engl J Med 2014;370(14):9401-9615) The normal value (reference range) for this assay is negative. COLOGUARD RE-SCREENING RECOMMENDATION: Periodic colorectal cancer screening is an important part of preventive healthcare for asymptomatic individuals at average risk for colorectal cancer. Following a negative Cologuard result, the [place] Cancer Society and U.S. Multi-Society Task Force screening guidelines recommend a Cologuard re-screening interval of 3 years. References: [place] Cancer Society Guideline for Colorectal Cancer Screening: https://www.cancer.org/cancer/iscux-ztimbl-tclfiv/viaazsebp-aadpcpxdr-esitcds/ac s-rec ommendations.html.; Carrington DK, Nathan CR, Wes BruceK, Colorectal Cancer Screening: Recommendations for Physicians and Patients from the U.S. Multi-Society Task Force on Colorectal Cancer Screening , Am J Gastroenterology 2017; 112:4182-3822. TEST DESCRIPTION: Composite algorithmic analysis of stool DNA-biomarkers with hemoglobin immunoassay. Quantitative values of individual biomarkers are not reportable and are not associated with individual biomarker result reference ranges. Cologuard is intended for colorectal cancer screening of adults of either sex, 45 years or older, who are at average-risk for colorectal cancer (CRC). Cologuard has been approved for use by the U.S. FDA. The performance of Cologuard was established in a cross sectional study of average-risk adults aged 50-84. Cologuard performance in patients ages 45 to 49 years was estimated by sub-group analysis of near-age groups. Colonoscopies performed for a positive result may find as the most clinically significant lesion: colorectal cancer [4.0%], advanced adenoma (including sessile serrated polyps greater than or equal to 1cm diameter) [20%] or non- advanced adenoma [31%]; or no colorectal neoplasia [45%]. These estimates are derived from a prospective cross-sectional screening study of 10,000 individuals at average risk for colorectal cancer who were screened with both Cologuard and colonoscopy. (Liset Marin al, N Engl J Med 2014;370(14):6921-2977.) Cologuard may produce a false negative or false positive result (no colorectal cancer or precancerous polyp present at colonoscopy follow up). A negative Cologuard test result does not guarantee the absence of CRC or advanced adenoma (pre-cancer). The current Cologuard screening interval is every 3 years. ([place] Cancer Society and U.S. Multi-Society Task Force). Cologuard performance data in a 10,000 patient pivotal study using colonoscopy as the reference method can be accessed at the following location: www.[employer] Power/results. Additional description of the Cologuard test process, warnings and precautions can be found at www.hakuogInSpard.com. Stool STOOL SPECIMEN / Unknown 12/24/2023 1:00 PM CDT 12/25/2023 3:01 PM CDT us Jeffery Landa DO BODY FLUIDS AND STOOLS Fin al Result Sold CLIA # [id number] [address] , [address] [place] [address] * HEMOGLOBIN A1C (12/09/2023 11:07 AM CDT) HEMOGLOBIN A1C 5.6 <5.7 % of total Hgb [facility] Comment: For the purpose of screening for the presence of diabetes: <5.7% Consistent with the absence of diabetes 5.7-6.4% Consistent with increased risk for diabetes (prediabetes) > or =6.5% Consistent with diabetes This assay result is consistent with a decreased risk of diabetes. Currently, no consensus exists regarding use of hemoglobin A1c for diagnosis of diabetes in children. According to [place] Diabetes Association (ADA) guidelines, hemoglobin A1c <7.0% represents optimal control in non- diabetic patients. Different metrics may apply to specific patient populations. Standards of Medical Care in Diabetes(ADA). ESTIMATED AVERAGE GLUCOSE (MG/DL) 114 mg/dL [facility] ESTIMATED AVERAGE GLUCOSE (MMOL/L) 6.3 mmol/L [facility] Comment: This test was performed on the Caron joão c503 platform. Effective 12/09/23, a change in test platforms from the [employer] to the Caron joão c503 may have shifted HbA1c results compared to historical results. Based on laboratory validation testing conducted at [facility], the Caron platform relative to the Soliz platform had an average increase in HbA1c value of < or = 0.3%. This difference is within accepted variability established by the National Glycohemoglobin Standardization Program. Note that not all individuals will have had a shift in their results and direct comparisons between historical and current results for testing conducted on different platforms is not recommended. FASTING:YES FASTING: YES Test Performed at: [facility] [place] [address] [address] [place] [id number] Chris Metcalf Blood 12/09/2023 11:0 7 AM CDT 12/09/2023 11:07 AM CDT us Jeffery Landa DO CHEMISTRY ORDERABLES Final Result [facility] [phone] [facility] [place] [address] [address] [place] [phone] * CT LUNG SCREENING (LDCT BASELINE OR ANNUAL) (12/24/2022 1:42 PM CDT) Anatomical Region Laterality Modality Chest Computed Tomogra phy 12/24/2022 1:35 PM CDT Impressions 12/25/2022 11:46 AM CDT IMPRESSION: 1. Lung RADS category 2, benign. RECOMMENDATION: 1. Continue annual screening with low dose CT in 12 months. [facility] Narrative 12/25/2022 11:[address] LUNG SCREENING WITH REFORMATS DATE: 12/24/2022 1:42 PM. HISTORY: Lung cancer screening, greater than or equal to 20 pack year smoking history (age greater than or equal to 50 years). COMPARISON: None. TECHNIQUE: Low-dose CT lung screening is performed with contiguous axial sections of the chest, reformatted in the coronal and sagittal planes. Images are also reviewed with CAD software. The examination was performed with the adjustment of mA according to the patient size and/or the use of Iterative Reconstruction Technique. FINDINGS: There is a juxtapleural nodule in the right upper lobe on image 114 of series 3 measuring 3 mm. No suspicious pulmonary nodules. Granulomatous changes. Areas of pleural thickening focally along the posterior pleural surfaces in the lower lobes. No consolidation, pleural effusion, or pneumothorax. Trachea and major airways appear patent. Normal heart size. Mild pericardial thickening. Mild aortic calcifications, without thoracic aortic aneurysm. Calcified subcarinal lymph nodes without mediastinal lymph node enlargement. Upper abdominal images reveal evidence of prior cholecystectomy. Generalized osteopenia. Multilevel degenerative changes throughout the spine. Procedure Note Rufino Panchito, - 12/25/2022 CT LUNG SCREENING WITH REFORMATS DATE: 12/24/2022 1:42 PM. HISTORY: Lung cancer screening, greater than or equal to 20 pack year smoking history (age greater than or equal to 50 years). COMPARISON: None. TECHNIQUE: Low-dose CT lung screening is performed with contiguous axial sections of the chest, reformatted in the coronal and sagittal planes. Images are also reviewed with CAD software. The examination was performed with the adjustment of mA according to the patient size and/or the use of Iterative Reconstruction Technique. FINDINGS: There is a juxtapleural nodule in the right upper lobe on image 114 of series 3 measuring 3 mm. No suspicious pulmonary nodules. Granulomatous changes. Areas of pleural thickening focally along the posterior pleural surfaces in the lower lobes. No consolidation, pleural effusion, or pneumothorax. Trachea and major airways appear patent. Normal heart size. Mild pericardial thickening. Mild aortic calcifications, without thoracic aortic aneurysm. Calcified subcarinal lymph nodes without mediastinal lymph node enlargement. Upper abdominal images reveal evidence of prior cholecystectomy. Generalized osteopenia. Multilevel degenerative changes throughout the spine. IMPRESSION: 1. Lung RADS category 2, benign. RECOMMENDATION: 1. Continue annual screening with low dose CT in 12 months. DICTATION LOCATION: Location [address] [place] [address]. Natalie Moore FIRE PROTECTION EQUIPMENT TECHNICIAN CT ORDERABLES Final Resul t * MAMMO DIAGNOSTIC BILATERAL W OR WO CAD (10/08/2022) Anatomical Region Laterality Modality Breast Bilateral Other us Abstract Provider MAMMO ORDERABLES Edited Result - Final from Last 3 Months or Most Recently Relevant to Health Maintenance Insurance Advance Directives For more information, please contact: [phone] * Full Code (Latest Code Status on File) Date Activated Date Inactivated Comments 08/12/2015 8:42 AM 08/12/2015 12:34 PM * Full Code Date Activated Date Inactivated Comments 07/07/2012 11:02 AM 07/07/2012 4:47 PM * Full Code Date Activated Date Inactivated Comments 07/07/2012 9:47 AM 07/07/2012 11:02 AM * Full Code Date Activated Date Inactivated Comments 07/07/2012 9:06 AM 07/07/2012 9:47 AM Care Teams Technology Assistant Relationship Specialty Start Date End Date Jeffery Landa DO PCP - General Internal Medicine 12/06/23
--- OUTSIDE RECORDS SUMMARY | 2024-11-06 09:52 | XMS_ITS | Encounter Summary ---
Author Organization [facility] Address [address] [place] [address] Care Team Providers Care Hydrological Technical Officer Name Role Phone Sis Hopper NP Primary Care Provider +1 -[phone] Encounter Details Date Type Department Care Team (Late st Contact Info) Description 06/01/2024 Touchtalent Message Enc [facility] Family [facility] - [place] [address] [place], [place] [address] Sis Hopper NP [address] [place], [place] [id number] Psychiatrist Social History Tobacco Use Types Packs/Day Years Used Date Smoking Tobacco: Every Day Cigarettes 1 42 Passive Smoke Exposure: Current Smokeless Tobacco: Never Alcohol Use Standard Drinks/Week Comments Yes 5 (1 standard drink = 0.6 oz pur e alcohol) PHQ-2 Answer Date Recorded Patient Health Questionnaire-2 Score 3 06/01/2024 Comments No Sex and Gender Information Value Date Recorded Sex Assigned at Not on file Legal Sex Female 12:11 PM CDT Gender Identity Not on file Sexual Orientation Not on file documented as of this encounter Plan of Treatment Not on file documented as of this encounter Visit Diagnoses Not on filedocumented in this encounter Additional Health Concerns Assessment Noted Time PHQ-9 Depression Total Score: 13 024 11:00 AM CDT documented as of this encounter Care Teams Hydrological Technical Officer Relationship Specialty Start Date End Date Sis Hopper NP [address] [place] [address] PCP - General NURSE PRACTITIONER 05/04/24 documented as of this encounter
--- OUTSIDE RECORDS SUMMARY | 2024-11-06 09:52 | XMS_ITS | Encounter Summary ---
Author Organization [facility] Address [address] [place] [address] Care Team Providers Care Director Multimedia Name Role Phone Jeffery Landa DO Primary Care Provider +1- [phone] Encounter Details Date Type Department Care Team (Late st Contact Info) Description 07/01/2000 Outpatient Historical [facility] Primary Care - [address] [place] [address] Sahil Voss MD NO ADDRESS ON FILE Social History Tobacco Use Types Packs/Day Years Used Date Smoking Tobacco: Never Assessed Comments Unknown Sex and Gender Information Value Date Recorded Sex Assigned at Not on file Legal Sex Female 3:35 AM UPPER AND BOTTOM LACER HAND Gender Identity Not on file Sexual Orientation Not on file documented as of this encounter Plan of Treatment Not on file documented as of this encounter Visit Diagnoses Not on filedocumented in this encounter Care Teams Director Multimedia Relationship Specialty Start Date End Date Jeffery Landa DO PCP - General Internal Medicine 12/06/23 documented as of this encounter
--- OUTSIDE RECORDS SUMMARY | 2024-11-06 09:52 | XMS_ITS | Encounter Summary ---
Author Organization [facility] Address 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 MEDICATIONS: Medications may have changed. Dr to review medications. CHIEF COMPLAINT Complains of feeling depressed. HISTORY: HISTORY: 311-DEPRESSION The depression has worsened. The patient has symptoms of fatigue, has decreased motivation, has anxiety, deniesdistractibility, denies compulsions, has symptoms of restlessness. fiancedied on saturday of cancer found earlier this year. very stressed , tearful, sleep disturbed. prior hx fo anxiety and some mood changes, and did not like how she felt with paxil. HISTORY OF PRESENT ILLNESS: PHYSICAL EXAMINATION: SKIN: RASH/LESION #1 LOCATION: Back. ASSESSMENT Tinea versicolor 110.0. PSYCHIATRIC: Appropriate judgment and insight, CRIED DURING THE EXAM, DEPRESSED AFFECT. ASSESSMENT/PLAN: 111.0-TINEA VERSICOLOR failed diflucan. MEDICATIONS: SELENIUM SULFIDE EXTERNAL LOTION 2.5 % MICROLITERS, apply daily for one week. leave on ten minutes,120 Dispensed, status: NEW PRESCRIPTION, 06/05/2006. 311-DEPRESSION having significant anxiety with this. try celexa and use xanax prn. In addition, sehneeded paperwork for fmla--exhausted her time with the illness. MEDICATIONS: XANAX ORAL TABLET 0.25 MG, 1 Three Times A Day, As Needed, 30 Dispensed, status: NEW PRESCRIPTION, 06/05/2006. CELEXA ORAL TABLET 20 MG, 1 Every Morning, 30 Dispensed, 5 Fills, status: NEW PRESCRIPTION, 06/05/2006. RETURN VISIT : Patient instructed to return in 1 month. Electronically Signed by: Sahil Voss MD on Saturday, June 05, 2006 documented in this encounter Plan of Treatment Not on file documented as of this encounter Visit Diagnoses Not on filedocumented in this encounter Care Teams Wire Stockkeeper Relationship Specialty Start Date End Date Jeffery Landa DO PCP - General Internal Medicine 12/06/23 documented as of this encounter
--- OUTSIDE RECORDS SUMMARY | 2024-11-06 09:52 | XMS_ITS | Encounter Summary ---
Author Organization [facility] Address [address] [place] [address] Care Team Providers Care Database Design Analyst Name Role Phone Jeffery Landa DO Primary Care Provider +1- [phone] Encounter Details Date Type Department Care Team (Late st Contact Info) Description 07/10/2005 Outpatient Historical [facility] Primary Care - [address] [place] [address] Sahil Voss MD NO ADDRESS ON FILE Social History Tobacco Use Types Packs/Day Years Used Date Smoking Tobacco: Never Assessed Comments Unknown Sex and Gender Information Value Date Recorded Sex Assigned at Not on file Legal Sex Female 3:35 AM ADDRESS CHANGE CLERK Gender Identity Not on file Sexual Orientation Not on file documented as of this encounter Last Filed Vital Signs Vital Sign Reading Time Taken Comments Blood Pressure 120/82 07/10/2005 1:30 PM CDT Pulse - - Temperature 36.8 C (98.2 F) 07/10/2005 1:30 PM CDT Respiratory Rate - - Oxygen Saturation - - Inhaled Oxygen Concentration - - Weight 67.6 kg (149 lb) 07/10/2005 1:30 PM CDT Height - - Body Mass Index - - documented in this encounter Plan of Treatment Not on file documented as of this encounter Visit Diagnoses Not on filedocumented in this encounter Care Teams Database Design Analyst Relationship Specialty Start Date End Date Jeffery Landa DO PCP - General Internal Medicine 12/06/23 documented as of this encounter
--- OUTSIDE RECORDS SUMMARY | 2024-11-06 09:52 | XMS_ITS | Encounter Summary ---
Author Organization [facility] Address [address] [place] [address] Care Team Providers Care Digital Marketing Coordinator Name Role Phone Jeffery Landa DO Primary Care Provider +1- [phone] Encounter Details Date Type Department Care Team (Late st Contact Info) Description 06/21/1998 Outpatient Historical [facility] Primary Care - [address] [place] [address] Sahil Voss MD NO ADDRESS ON FILE Social History Tobacco Use Types Packs/Day Years Used Date Smoking Tobacco: Never Assessed Comments Unknown Sex and Gender Information Value Date Recorded Sex Assigned at Not on file Legal Sex Female 3:35 AM OPERATING SYSTEMS SPECIALIST Gender Identity Not on file Sexual Orientation Not on file documented as of this encounter Plan of Treatment Not on file documented as of this encounter Visit Diagnoses Not on filedocumented in this encounter Care Teams Digital Marketing Coordinator Relationship Specialty Start Date End Date Jeffery Landa DO PCP - General Internal Medicine 12/06/23 documented as of this encounter
--- OUTSIDE RECORDS SUMMARY | 2024-11-06 09:52 | XMS_ITS | Encounter Summary ---
Author Organization [facility] Address [address] [place] [address] Care Team Providers Care Mine Promotor Name Role Phone Jeffery Landa DO Primary Care Provider +1- [phone] Encounter Details Date Type Department Care Team (Late st Contact Info) Description 10/01/2006 Orders Only [facility] Primary Care - [address] [place] [address] Sahil Voss MD NO ADDRESS ON FILE Social History Tobacco Use Types Packs/Day Years Used Date Smoking Tobacco: Never Assessed Comments Unknown Sex and Gender Information Value Date Recorded Sex Assigned at Not on file Legal Sex Female 3:35 AM TREASURY SPECIALIST Gender Identity Not on file Sexual Orientation Not on file documented as of this encounter Plan of Treatment Not on file documented as of this encounter Visit Diagnoses Not on filedocumented in this encounter Care Teams Mine Promotor Relationship Specialty Start Date End Date Jeffery Landa DO PCP - General Internal Medicine 12/06/23 documented as of this encounter
--- OUTSIDE RECORDS SUMMARY | 2024-11-06 09:52 | XMS_ITS | Encounter Summary ---
Author Organization [facility] Address 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
--- OUTSIDE RECORDS SUMMARY | 2024-11-06 09:52 | XMS_ITS | Encounter Summary ---
Author Organization [facility] Address 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 LLOYD PHONE NUMBER: [phone] or [phone] WHO CALLED: Patient called. CURRENT ALLERGY LIST: NO KNOWN ALLERGIES PHARMACY NUMBER: [phone] PROBLEMS: CONGESTION: Patient complains of nasal congestion. The symptoms began approximately 1 week ago, to 2 weeks ago. COUGH:Patient complains of cough. The symptoms began approximately 2 weeks ago. EARACHE: Patient complains of earache. The symptoms began less than 12 hours ago. rightstarted in let ear and pt sd still has ringing in that ear----aopt has taken dayquil for sx and cough syrup that was prescribed in the past that pt had left over---- SECTION 1: pt would like rx called out to pharm---ao DOCTOR`S RESPONSE: marilynnpg 09/05/07 at 04:55 pm she can refill the cough syrup if sheneeds to, or cnjust take antibiotic MEDICATIONS: Call in to Pharmacy ZITHROMAX Z-JACKSON ORAL TABLET 250 MG, use as directed, 1 Dispensed, status: NEW PRESCRIPTION, 09/05/2007. BROMETANE DX ORAL SYRUP 30-2-10 MG/5ML FLUIDOUNCES, two teasoons qid prn, 8 Dispensed, status: CONTINUED, 09/05/2007. FINAL ACTION: sergio 09/05/07 at 05:02 pm Spoke with patient 09/05/07 at 05:02 pm. lmor Called pharmacy at 09/05/07 at 05:02 pm. / jessie Electronically Signed by: Jessie Dietrich on Wednesday, September 05, 2007 documented in this encounter Plan of Treatment Not on file documented as of this encounter Visit Diagnoses Not on filedocumented in this encounter Care Teams Gasoline Pump Mechanic Relationship Specialty Start Date End Date Jeffery Landa DO PCP - General Internal Medicine 12/06/23 documented as of this encounter
--- OUTSIDE RECORDS SUMMARY | 2024-11-06 09:52 | XMS_ITS | Encounter Summary ---
Author Organization [facility] Address 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
--- OUTSIDE RECORDS SUMMARY | 2024-11-06 09:52 | XMS_ITS ---
Author Organization [facility] Address [facility] [address] [place] [address] Care Team Providers Care Heater Tender Name Role Phone Sis Hopper APN Primary Care Provider Rachel Forrester Unavailable [phone] REASON FOR VISIT Cancel Appointment Request Social History Sex Assigned At : Social History Observation Description Sex Assigned At Female Encounters Encounter Location Date Provider Diagnosis [address] [place] [address] 06/02/2024 Rachel Orozco Plan Of Treatment No Information Progress Notes * Coleen REARDON MDOB:1960 (63 yo F)Acc No.[id number]:06/02/2024 Patient: Coleen VILLAFANA :1960 A ge:63 Y S ex:Female Address:[address] [place], [address] * true * Date: Generated for Samuel ramsay/Heraclio/eTransmitting on: 0 11/06/2024 09:51 AM DRAWER IN STITCH BONDING MACHINE
--- OUTSIDE RECORDS SUMMARY | 2024-11-06 09:52 | XMS_ITS | Encounter Summary ---
Author Organization [facility] Address [address] [place] [address] Care Team Providers Care Insole Toe Snipping Machine Operator Name Role Phone Jeffery Landa DO Primary Care Provider +1- [phone] Encounter Details Date Type Department Care Team (Late st Contact Info) Description 05/15/2000 Outpatient Historical [facility] Primary Care - [address] [place] [address] Sahil Voss MD NO ADDRESS ON FILE Social History Tobacco Use Types Packs/Day Years Used Date Smoking Tobacco: Never Assessed Comments Unknown Sex and Gender Information Value Date Recorded Sex Assigned at Not on file Legal 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
--- OUTSIDE RECORDS SUMMARY | 2024-11-06 09:52 | XMS_ITS | Encounter Summary ---
Author Organization [facility] Address 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
--- OUTSIDE RECORDS SUMMARY | 2024-11-06 09:52 | XMS_ITS | Encounter Summary ---
Author Organization [facility] Address [address] [place] [address] Care Team Providers Care Power Regulator Name Role Phone Jeffery Landa DO Primary Care Provider +1- [phone] Encounter Details Date Type Department Care Team (Late st Contact Info) Description 02/06/2008 Outpatient Historical [facility] Primary Care - [address] [place] [address] Sahil Voss MD NO ADDRESS ON FILE Social History Tobacco Use Types Packs/Day Years Used Date Smoking Tobacco: Never Assessed Comments Unknown Sex and Gender Information Value Date Recorded Sex Assigned at Not on file Legal Sex Female 3:35 AM JOIST SETTER Gender Identity Not on file Sexual Orientation Not on file documented as of this encounter Plan of Treatment Not on file documented as of this encounter Visit Diagnoses Not on filedocumented in this encounter Care Teams Power Regulator Relationship Specialty Start Date End Date Jeffery Landa DO PCP - General Internal Medicine 12/06/23 documented as of this encounter
--- OUTSIDE RECORDS SUMMARY | 2024-11-06 09:52 | XMS_ITS | Encounter Summary ---
Author Organization [facility] Address 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 Gender Identity Not on file Sexual Orientation Not on file documented as of this encounter Last Filed Vital Signs Vital Sign Reading Time Taken Comments Blood Pressure 130/88 06/05/2006 11:45 AM CDT Pulse - - Temperature 36.9 C (98.4 F) 06/05/2006 11:45 AM CDT Respiratory Rate - - Oxygen Saturation - - Inhaled Oxygen Concentration - - Weight 66.2 kg (146 lb) 06/05/2006 11:45 AM CDT Height - - Body Mass Index - - documented in this encounter Plan of Treatment Not on file documented as of this encounter Visit Diagnoses Not on filedocumented in this encounter Care Teams Watch Leader Relationship Specialty Start Date End Date Jeffery Landa DO PCP - General Internal Medicine 12/06/23 documented as of this encounter
--- OUTSIDE RECORDS SUMMARY | 2024-11-06 09:52 | XMS_ITS | Encounter Summary ---
Author Organization [facility] Address [address] [place] [address] Care Team Providers Care Rn Complex Care Name Role Phone Jeffery Landa DO Primary Care Provider +1- [phone] Encounter Details Date Type Department Care Team (Late st Contact Info) Description 02/01/2003 Outpatient Historical [facility] Primary Care - [address] [place] [address] Sanjay Canchola MD [address] [facility] [address] [place] [address] Social History Tobacco Use Types Packs/Day Years Used Date Smoking Tobacco: Never Assessed Comments Unknown Sex and Gender Information Value Date Recorded Sex Assigned at Not on file Legal Sex Female 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
--- OUTSIDE RECORDS SUMMARY | 2024-11-06 09:52 | XMS_ITS | Encounter Summary ---
Author Organization [facility] Address [address] [place] [address] Care Team Providers Care Exercise Planner Name Role Phone Sis Hopper NP Primary Care Provider +1 -[phone] Encounter Details Date Type Department Care Team (Late st Contact Info) Description 05/07/2024 JANZZ Message Enc [facility] Family Medicine - [place] [address] [facility] [address] [place], [place] [address] Sis Hopper NP [address] [place], [place] [address] mammogram Social History Tobacco Use Types Packs/Day Years Used Date Smoking Tobacco: Every Day Cigarettes 1 42 Passive Smoke Exposure: Current Smokeless Tobacco: Never Alcohol Use Standard Drinks/Week Comments Yes 5 (1 standard drink = 0.6 oz pur e alcohol) PHQ-2 Answer Date Recorded Patient Health Questionnaire-2 Score 0 05/04/2024 Comments No Sex and Gender Information Value Date Recorded Sex Assigned at Not on file Legal Sex Female 12:11 PM CDT Gender Identity Not on file Sexual Orientation Not on file documented as of this encounter Plan of Treatment Not on file documented as of this encounter Visit Diagnoses Not on filedocumented in this encounter Care Teams Exercise Planner Relationship Specialty Start Date End Date Sis Hopper NP [address] [place], [place] [address] PCP - General NURSE PRACTITIONER 05/04/24 documented as of this encounter
--- OUTSIDE RECORDS SUMMARY | 2024-11-06 09:52 | XMS_ITS | Encounter Summary ---
Author Organization [facility] Address [address] [place] [address] Care Team Providers Care Section Leader Name Role Phone Jeffery Landa DO Primary Care Provider +1- [phone] Encounter Details Date Type Department Care Team (Late st Contact Info) Description 03/17/2001 Outpatient Historical [facility] Primary Care - [address] [place] [address] Sahil Voss MD NO ADDRESS ON FILE Social History Tobacco Use Types Packs/Day Years Used Date Smoking Tobacco: Never Assessed Comments Unknown Sex and Gender Information Value Date Recorded Sex Assigned at Not on file Legal Sex Female 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
--- OUTSIDE RECORDS SUMMARY | 2024-11-06 09:52 | XMS_ITS | Encounter Summary ---
Author Organization [facility] Address 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 LAST VISIT: 07-10-05 PCP: marc. ALTERNATIVE PHONE NUMBER: [phone] WHO CALLED: Patient called. CURRENT ALLERGY LIST: NO KNOWN ALLERGIES ZITHROMAX PHARMACY NUMBER: [phone] PROBLEMS: CONGESTION: Patient complains of sinus congestion. The symptoms began in the past few days. COUGH:Patient complains of cough. The symptoms began in the past few days. coughing up green phlegm EARACHE: The symptoms began in the past few days. SECTION 1: REQUESTED ACTION haile 01/28/06 at 09:04 am: MEDICATION REQUEST: Patient wants medication or an appointment. nk DOCTOR`S RESPONSE: alex 01/28/06 at 09:16 am MEDICATIONS: Call in to Pharmacy BROMETANE DX ORAL SYRUP 30-2-10 MG/5ML FLUIDOUNCES, two teasoons qid prn, 6 Dispensed, status: NEW PRESCRIPTION, 01/28/2006. CEFUROXIME AXETIL ORAL TABLET 250 MG, 1 Two Times A Day, 20 Dispensed, status: CONTINUED, 01/28/2006. FINAL ACTION: jaylynw 01/28/06 at 09:42 am Spoke with patient 01/28/06 at 09:42 am. Called pharmacy at 01/28/06 at 09:42 am. / Yulissa Electronically Signed by: Yluissa Dietrich on Saturday, January 28, 2006 documented in this encounter Plan of Treatment Not on file documented as of this encounter Visit Diagnoses Not on filedocumented in this encounter Care Teams Chief Design Branch Relationship Specialty Start Date End Date Jeffery Landa DO PCP - General Internal Medicine 12/06/23 documented as of this encounter
--- OUTSIDE RECORDS SUMMARY | 2024-11-06 09:52 | XMS_ITS | Encounter Summary ---
Author Organization [facility] Address 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 Gender Identity Not on file Sexual Orientation Not on file documented as of this encounter Last Filed Vital Signs Vital Sign Reading Time Taken Comments Blood Pressure 120/80 05/03/2005 11:45 AM CDT Pulse - - Temperature 37.1 C (98.8 F) 05/03/2005 11:45 AM CDT Respiratory Rate - - Oxygen Saturation - - Inhaled Oxygen Concentration - - Weight 68 kg (150 lb) 05/03/2005 11:45 AM CDT Height - - Body Mass Index - - documented in this encounter Plan of Treatment Not on file documented as of this encounter Visit Diagnoses Not on filedocumented in this encounter Care Teams Spring Setter Relationship Specialty Start Date End Date Jeffery Landa DO PCP - General Internal Medicine 12/06/23 documented as of this encounter
--- OUTSIDE RECORDS SUMMARY | 2024-11-06 09:52 | XMS_ITS | Encounter Summary ---
Author Organization [facility] Address [address] [place] [address] Care Team Providers Care Clinical Analyst Name Role Phone Jeffery Landa DO Primary Care Provider +1- [phone] Encounter Details Date Type Department Care Team (Late st Contact Info) Description 07/22/2002 Outpatient Historical [facility] Primary Care - [address] [place] [address] Sahil Voss MD NO ADDRESS ON FILE Social History Tobacco Use Types Packs/Day Years Used Date Smoking Tobacco: Never Assessed Comments Unknown Sex and Gender Information Value Date Recorded Sex Assigned at Not on file Legal Sex Female 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
--- OUTSIDE RECORDS SUMMARY | 2024-11-06 09:52 | XMS_ITS | Clinical Summary ---
Author Organization [facility] Address [facility] [place] [address] Care Team Providers Care Substation Technician Name Role Phone Sis Hopper NP Primary Care Provider +1 [phone] Allergies Active Allergy Reactions Criticality Noted Date Comments Azithromycin Nausea and Vomiting Low 07/10/2005 Morphine Nausea and Vomiting Low 07/02/2012 Prednisone Itching 05/04/2024 C/o itching, high blood pressure, and diarrhea Medications No known medications Active Problems Problem Noted Date Diagnosed Date Cigarette nicotine dependenc e with nicotine-induced disorder 05/04/2024 Overview (05/04/2024): 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 Is not ready to Quit. Had a lung cancer CT scan last year 12/24/22. Due for repeat FINDINGS: There is a juxtapleural nodule in [...] osteopenia. Multilevel degenerative changes throughout the spine. Assessment & Plan (05/04/2024 12:14 PM CDT): Lung cancer CT scan ordered. Highly encourage smoking cessation. Screening for lung cancer 05/04/2024 Assessment & Plan (05/04/2024 12:17 PM CDT): Lung cancer CT scan placed. Encourage smoking cessation. Post-menopausal 05/04/2024 Overview (05/04/2024): Has been menopausal since her 40's after she had a hysterectomy d/t higher risk of developing ovarian cancer. No family hx so likely hx of HPV. Osteopenia, unspecified location 05/04/2024 Overview (05/04/2024): Noted on lung cancer CT scan. Smoker, hysterectomy in her 40's. Assessment & Plan (05/04/2024 12:17 PM CDT): Will obtain DEXA scan Encourage weight-bearing exercise, such as walking or jogging, riding stationary bicycles, using rowing machines, or lifting weights, helps promote bone strength. A diet rich in calcium and vitamin D is important for bone development. Vitamin D is also gained from short exposure to sunlight each day. It is recommended at pt's age to consume 1200 mg of calcium per day ant 800IU of Vtamin D daily Mixed hyperlipidemia 05/04/2024 Overview (05/04/2024): LDL 145, HDL 55, Triglycerides 156 noted from recent labs. Was placed on Atorvastatin but did not tolerate. ASCVD risk factor is 2.6% currently with this lipid panel. Hx of CAD in father. Pt smokes and is obese. Eats poorly and does not exercise. Assessment & Plan (05/04/2024 12:16 PM CDT): ASCVD risk factor score low but risk factors of poor diet, obesity, smoking , and CAD in father put pt at higher risk. Will order CT calcium score at this time and follow up once back.Encourage diet and lifestyle modifications. Obesity (BMI 30.0-34.9) 08/13/2019 Overview (05/04/2024): Diet is poor and not exercising. Assessment & Plan (05/04/2024 12:16 PM CDT): Encourage diet land lifestyle modifications to help with weight loss. Resolved Problems Problem Noted Date Diagnosed Date Resolved Date Pure hypercholesterolemia 05/04/2024 Tobacco use disorder 08/29/2006 024 Immunizations Name Administration Dates Next Due Influenza (Generic) 07/24/2019,07/22/2014 Pneumococcal (Prevnar 20) 12/05/2022 Family History Medical History Relation Comments Heart Disease Father Kidney Disease Mother Relation Status Comments Father Mother Social History Tobacco Use Types Packs/Day Years Used Date Smoking Tobacco: Every Day Cigarettes 1 42 Passive Smoke Exposure: Current Smokeless Tobacco: Never Tobacco Cessation:Ready to Q uit: No; Counseling Given: Yes Alcohol Use Standard Drinks/Week Comments Yes 5 (1 standard drink = 0.6 oz pur e alcohol) PHQ-2 Answer Date Recorded Patient Health Questionnaire-2 Score 3 06/01/2024 Comments No Sex and Gender Information Value Date Recorded Sex Assigned at Not on file Legal Sex Female 12:11 PM CDT Gender Identity Not on file Sexual Orientation Not on file Last Filed Vital Signs Vital Sign Reading Time Taken Comments Blood Pressure 112/82 06/01/2024 10:54 AM CDT Pulse 87 06/01/2024 10:54 AM CDT Temperature 37.1 C (98.7 F) 06/01/2024 10:54 AM CDT Respiratory Rate 18 06/01/2024 10:54 AM CDT Oxygen Saturation 100% 06/01/2024 10:54 AM CDT Inhaled Oxygen Concentration - - Weight 78.9 kg (174 lb) 06/01/2024 10:54 AM CDT Height 157.5 cm (5' 2 ) 06/01/2024 10:54 AM CDT Body Mass Index 31.83 06/01/2024 10:54 AM CDT Plan of Treatment Health Maintenance Due Date Last Done Comments Hepatitis C 1980 DTaP, Tdap and Td Vaccines ( 1 - Tdap) 1981 Zoster Vaccines (1 of 2) 2012 COVID-19 Vaccine (4 - 2023-2 5 season) 2024 09/18/2021, 01/16/2021, 12/19/2020 Influenza Adult (#1) 2024 07/24/2019, 07/22/2014 PHQ-2 (Physician [place]) 09/23/2024 06/01/2024 Annual Physical 05/04/2025 05/04/2024 Lung Cancer Screening 06/08/2025 06/08/2024 , 06/08/2024 Mammogram Screening 04/20/2026 04/20/2024, 10/11/2015 Colorectal Cancer Screening FIT-DNA (3 Years) 12/23/2026 12/24/2023, 12/24/2023 RSV Immunization or 60+ Years (1 - 1-dose 75+ series) 2037 Pneumococcal Vaccine: Pediatrics (0 to 5 Years) and At-Risk Patients (6 to 64 Years) Completed 12/05/2022 Meningococcal B Vaccine Aged Out No l onger eligible based on patient's age to complete this topic Meningococcal Vaccine Aged Out No cira shemar eligible based on patient's age to complete this topic RSV Immunizations Under 20 Months Aged Out No longer eligible b ased on patient's age to complete this topic Procedures Procedure Name Priority Date/Time Associated Diagnosis Comments CT LUNG SCREENING Routine 06/08/2024 7:3 4 AM CDT Screening for lung cancer Cigarette nicotine dependence with nicotine-induced disorder MAMMOGRAM GENERIC (SCAN ORDER) 04/20/2024 COLOGUARD (SCAN ORDER) Routine 12/24/2023 from Last 3 Months or Most Recently Relevant to Health Maintenance Results * CT LUNG SCREENING (06/08/2024 7:34 AM CDT) Anatomical Region Laterality Modality Chest Computed Tomogra phy 06/11/2024 4:17 PM CDT Impressions 06/11/2024 4:22 PM CDT IMPRESSION: 1. Lung-RADS Category 2: Benign appearance or behavior. Nodules with a very low likelihood of becoming a clinically active cancer due to size or lack of growth. 2. LUNG-RADS category S: Negative, no new/unknown potentially significant incidental findings requiring urgent additional evaluation. 3. Other incidental findings as above. RECOMMENDATIONS: Follow-up LDCT Chest in 12 months (on or around 06/08/2025). Referred By: SIS HOPPER Interpreted By: Hector Ashton MD, 06/11/2024 4:17 PM Narrative 06/11/2024 4:22 PM CDT [facility] [address] [place], [place] [address] EXAM: LUNG SCREENING LOW-DOSE CT THORAX WITHOUT CONTRAST DATE: 06/08/2024 HISTORY: Asymptomatic patient meeting NCCN high-risk criteria for lung screening. COMPARISON: None available. TECHNIQUE: Noncontrast, helical, low-dose CT (LDCT) chest per standard departmental protocol. Automated exposure control was utilized for dose reduction. FINDINGS: Lung Screening Specific (LUNG-RADS): Multiple dependent subpleural pulmonary nodules, likely related to focal atelectasis. For reference: 5 mm subpleural nodule left lower lobe axial image 54. Baseline. Lung RADS 2. 8 mm subpleural right lower lobe nodule axial image 72. Baseline. Lung RADS 2. Potentially Significant Incidentals (LUNG-RADS category S): None. Pulmonary Incidentals: Minimal emphysematous changes. Scattered calcified granulomatous disease. Other Incidentals: Calcified mediastinal and right hilar lymph nodes. Minimal atherosclerotic calcifications of the thoracic aorta. Trace coronary artery calcifications. Inferior pole left renal simple cyst partially visualized. Status post cholecystectomy. Moderate thoracic spondylosis. Procedure Note Hector Ashton MD - 06/11/2024 [facility] [address] [place], [place] [address] EXAM: LUNG SCREENING LOW-DOSE CT THORAX WITHOUT CONTRAST DATE: 06/08/2024 HISTORY: Asymptomatic patient meeting NCCN high-risk criteria for lungscreening. COMPARISON: None available. TECHNIQUE: Noncontrast, helical, low-dose CT (LDCT) chest per standarddepartmental protocol. Automated exposure control was utilized for dosereduction. FINDINGS: Lung Screening Specific (LUNG-RADS): Multiple dependent subpleural pulmonary nodules, likely related to focalatelectasis. For reference: 5 mm subpleural nodule left lower lobe axial image 54. Baseline. LungRADS 2. 8 mm subpleural right lower lobe nodule axial image 72. Baseline. LungRADS 2. Potentially Significant Incidentals (LUNG-RADS category S): None. Pulmonary Incidentals: Minimal emphysematous changes. Scattered calcifiedgranulomatous disease. Other Incidentals: Calcified mediastinal and right hilar lymph nodes.Minimal atherosclerotic calcifications of the thoracic aorta. Tracecoronary artery calcifications. Inferior pole left renal simple cystpartially visualized. Status post cholecystectomy. Moderate thoracicspondylosis. IMPRESSION: 1. Lung-RADS Category 2: Benign appearance or behavior. Nodules with migel low likelihood of becoming a clinically active cancer due to size orlack of growth. 2. LUNG-RADS category S: Negative, no new/unknown potentially significantincidental findings requiring urgent additional evaluation. 3. Other incidental findings as above. RECOMMENDATIONS: Follow-up LDCT Chest in 12 months (on or around06/08/2025). Referred By: SIS HOPPER Interpreted By: Hector Ashton MD, 06/11/2024 4:17 PM Result [facility] Sis Hopper METAL TRIM ERECTOR CT Final Res ult * MAMMOGRAM GENERIC (SCAN ORDER) (04/20/2024) Anatomical Region Laterality Modality Other 04/20/2024 [employer] [facility] Scanned SCANNING Final Resu lt * COLOGUARD (12/24/2023) COLOGUARD NEGATIVE [facility] STOOL 12/24/2023 [employer] [facility] Scanned SCANNING Final Resu lt [facility] from Last 3 Months or Most Recently Relevant to Health Maintenance Insurance [employer] Care Teams Substation Technician Relationship Specialty Start Date End Date Sis Hopper NP [address] [place] [address] PCP - General NURSE PRACTITIONER 05/04/24
--- OUTSIDE RECORDS SUMMARY | 2024-11-06 09:52 | XMS_ITS | Encounter Summary ---
Author Organization [facility] Address [address] [place] [address] Care Team Providers Care Engraver Ornamental Design Name Role Phone Jeffery Landa DO Primary Care Provider +1- [phone] Encounter Details Date Type Department Care Team (Late st Contact Info) Description 12/03/2000 Outpatient Historical [facility] Primary Care - [address] [place] [address] Sahil Voss MD NO ADDRESS ON FILE Social History Tobacco Use Types Packs/Day Years Used Date Smoking Tobacco: Never Assessed Comments Unknown Sex and Gender Information Value Date Recorded Sex Assigned at Not on file Legal 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
--- OUTSIDE RECORDS SUMMARY | 2024-11-06 09:52 | XMS_ITS | Encounter Summary ---
Author Organization [facility] Address 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 MEDICATIONS: Patient is taking no medications at present. CHIEF COMPLAINT Patient complains of sinus congestion. and lt arm numbness HISTORY: She notes numbness lateral aspect index finger on left over period of weeks. Mild vague sxaround elbow. Neck is mildly stiff, but not painful. 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 PHYSICAL EXAMINATION: left hand 2 nd digit MUSCULOSKELETAL EXAM: HEAD AND NECK: mild muscular tenderness EXTREMITIES: LEFT LOWER EXTREMITY: No misalignment or tenderness. Full range of motion. Normal stability, strength and tone. NEUROLOGIC: skein washer and finger strength are fine. DEEP TENDON REFLEXES: Deep tendon reflexes 2+/4 and symmetrical. SENSATION: Normal to touch, pinprick and vibration. ASSESSMENT/PLAN: 438.6-ALTERATIONS OF SENSATIONS I suspect it is from wrist trauma ad interdigital nerve irritation.Use heat and begin ansaid three times daily on a schedule. RETURN VISIT : Instructed to call if not improving. 10-14 days Electronically Signed by: Sahil Voss MD on Sunday, October 07, 2007 documented in this encounter Plan of Treatment Not on file documented as of this encounter Visit Diagnoses Not on filedocumented in this encounter Care Teams Spectacle Truer Relationship Specialty Start Date End Date Jeffery Landa DO PCP - General Internal Medicine 12/06/23 documented as of this encounter
--- OUTSIDE RECORDS SUMMARY | 2024-11-06 09:52 | XMS_ITS | Encounter Summary ---
Author Organization [facility] Address [address] [place] [address] Care Team Providers Care Window Caser Name Role Phone Jeffery Landa DO Primary Care Provider +1- [phone] Encounter Details Date Type Department Care Team (Late st Contact Info) Description 02/06/2008 Orders Only 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
--- OUTSIDE RECORDS SUMMARY | 2024-11-06 09:52 | XMS_ITS | Encounter Summary ---
Author Organization [facility] Address [address] [place] [address] Care Team Providers Care Tele Marketing Executive Name Role Phone Jeffery Landa DO Primary Care Provider +1- [phone] Encounter Details Date Type Department Care Team (Late st Contact Info) Description 08/13/2003 Outpatient Historical [facility] Primary Care - [address] [place] [address] Sahil Voss MD NO ADDRESS ON FILE Social History Tobacco Use Types Packs/Day Years Used Date Smoking Tobacco: Never Assessed Comments Unknown Sex and Gender Information Value Date Recorded Sex Assigned at Not on file Legal Sex Female 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
--- OUTSIDE RECORDS SUMMARY | 2024-11-06 09:52 | XMS_ITS | Encounter Summary ---
Author Organization [facility] Address 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 LAST VISIT: 08-29-06 PCP: marc. ALTERNATIVE PHONE NUMBER: [phone] WHO CALLED: Patient called. CURRENT ALLERGY LIST: NO KNOWN ALLERGIES PHARMACY NUMBER: [phone] PROBLEMS: per pt sinus infection/congestion with yellow mucus started Adilia Lanette, pt denies all other symptoms, pt taking Dayquil with results SECTION 1: REQUESTED ACTION starca 09/17/06 at 11:32 am: MEDICATION REQUEST: Patient wants medications and can not come in....marycruz DOCTOR`S RESPONSE: conwpg 09/17/06 at 01:12 pm MEDICATIONS: Call in to Pharmacy AMOXICILLIN-POT CLAVULANATE ORAL TABLET 875-125 MG, 1 Two Times A Day, 20 Dispensed, status: CONTINUED, 09/17/2006. FINAL ACTION: frankw 09/17/06 at 03:24 pm Left message on patient`s recorder or with a family member 09/17/2006 at 03:24 pm. Called pharmacy at 09/17/06 at 03:24 pm. / jessie Electronically Signed by: Jessie Dietrich on Sunday, September 17, 2006 documented in this encounter Plan of Treatment Not on file documented as of this encounter Visit Diagnoses Not on filedocumented in this encounter Care Teams Inside Solar Sales Consultant Relationship Specialty Start Date End Date Jeffery Landa DO PCP - General Internal Medicine 12/06/23 documented as of this encounter
--- OUTSIDE RECORDS SUMMARY | 2024-11-06 09:52 | XMS_ITS | Encounter Summary ---
Author Organization [facility] Address 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
--- OUTSIDE RECORDS SUMMARY | 2024-11-06 09:52 | XMS_ITS | Encounter Summary ---
Author Organization [facility] Address 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
--- OUTSIDE RECORDS SUMMARY | 2024-11-06 09:52 | XMS_ITS | Encounter Summary ---
Author Organization [facility] Address 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 LAST VISIT: 07-10-05 PCP: marc. ALTERNATIVE PHONE NUMBER: [phone] / [phone] WHO CALLED: Patient called. CURRENT ALLERGY LIST: NO KNOWN ALLERGIES [facility] PHARMACY NUMBER: [phone] PROBLEMS: EARACHE: Patient complains of earache. The symptoms began approximately 2 days ago. SECTION 1: REQUESTED ACTION carlo 06/03/06 at 09:14 am: APPOINTMENT REQUEST: Patient wants an appointment today with any provider, no appointments available. pt wants to come in to see for depression there are no appt available can we use sick slot? Salas DOCTOR`S RESPONSE: [email or web address] 06/03/06 at 03:12 pm see saturday or saturday for depression--call out below for ear. MEDICATIONS: Call in to Pharmacy CEFUROXIME AXETIL ORAL TABLET 250 MG, 1 Two Times A Day, 20 Dispensed, status: CONTINUED, 06/03/2006. GUIADEX PD ORAL TABLET 12 HR 10-600 MG, 1 Two Times A Day, 14 Dispensed, status: NEW PRESCRIPTION, 06/03/2006. FINAL ACTION: haile 06/03/06 at 03:22 pm Spoke with patient 06/03/06 at 03:22 pm. Called pharmacy at 06/03/06 at 03:22 pm. spoke w/ pharmacist............/jeanie Electronically Signed by: Jeanie Gomes on Saturday, June 03, 2006 documented in this encounter Plan of Treatment Not on file documented as of this encounter Visit Diagnoses Not on filedocumented in this encounter Care Teams Machine Bobbin Winder Relationship Specialty Start Date End Date Jeffery Landa DO PCP - General Internal Medicine 12/06/23 documented as of this encounter
--- OUTSIDE RECORDS SUMMARY | 2024-11-06 09:52 | XMS_ITS | Encounter Summary ---
Author Organization [facility] Address 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
--- OUTSIDE RECORDS SUMMARY | 2024-11-06 09:52 | XMS_ITS | Encounter Summary ---
Author Organization [facility] Address [address] [place] [address] Care Team Providers Care Superintendent Colliery Name Role Phone Jeffery Landa DO Primary Care Provider +1- [phone] Encounter Details Date Type Department Care Team (Late st Contact Info) Description 08/29/2006 Outpatient [facility] Primary Care - [address] [place] [address] Sahil Voss MD NO ADDRESS ON FILE Social History Tobacco Use Types Packs/Day Years Used Date Smoking Tobacco: Never Assessed Comments Unknown Sex and Gender Information Value Date Recorded Sex Assigned at Not on file Legal Sex Female 3:35 AM QUALITY CONSULTANT Gender Identity Not on file Sexual Orientation Not on file documented as of this encounter Last Filed Vital Signs Vital Sign Reading Time Taken Comments Blood Pressure 120/80 08/29/2006 3:00 PM QUALITY CONSULTANT Pulse - - Temperature 37.2 C (98.9 F) 08/29/2006 3:00 PM QUALITY CONSULTANT Respiratory Rate - - Oxygen Saturation - - Inhaled Oxygen Concentration - - Weight 66.2 kg (146 lb) 08/29/2006 3:00 PM QUALITY CONSULTANT Height - - Body Mass Index - - documented in this encounter Plan of Treatment Not on file documented as of this encounter Visit Diagnoses Not on filedocumented in this encounter Care Teams Superintendent Colliery Relationship Specialty Start Date End Date Jeffery Landa DO PCP - General Internal Medicine 12/06/23 documented as of this encounter
--- OUTSIDE RECORDS SUMMARY | 2024-11-06 09:52 | XMS_ITS | Encounter Summary ---
Author Organization [facility] Address [address] [place] [address] Care Team Providers Care Qa Software Test Engineer Name Role Phone Jeffery Landa DO Primary Care Provider +1- [phone] Encounter Details Date Type Department Care Team (Late st Contact Info) Description 01/03/2004 Outpatient Historical [facility] Primary Care - [address] [place] [address] Sahil Voss MD NO ADDRESS ON FILE Social History Tobacco Use Types Packs/Day Years Used Date Smoking Tobacco: Never Assessed Comments Unknown Sex and Gender Information Value Date Recorded Sex Assigned at Not on file Legal Sex Female 3:35 AM MEDIA BUYER Gender Identity Not on file Sexual Orientation Not on file documented as of this encounter Plan of Treatment Not on file documented as of this encounter Visit Diagnoses Not on filedocumented in this encounter Care Teams Qa Software Test Engineer Relationship Specialty Start Date End Date Jeffery Landa DO PCP - General Internal Medicine 12/06/23 documented as of this encounter
--- OUTSIDE RECORDS SUMMARY | 2024-11-06 09:52 | XMS_ITS | Encounter Summary ---
[facility] Organization [facility] Address [address] [place] [address] Care Team Providers Care Nitric Acid Plant Operator Name Role Phone Jeffery Landa Primary Care Provider +1- [phone] Encounter Details Date Type Department Care Team (Late st Contact Info) Description 11/23/2008 [facility] [address] [place] [id number] Social History Tobacco Use Types Packs/Day Years Used Date Smoking Tobacco: Never Assessed Comments No Sex and Gender Information Value Date Recorded Sex Assigned at Not on file Legal Sex Female 3:35 AM DIRECTOR CORPORATE SALES Gender Identity Not on file Sexual Orientation Not on file documented as of this encounter Plan of Treatment Not on file documented as of this encounter Procedures Procedure Name Priority Date/Time Associated Diagnosis Comments CBC WITH DIFFERENTIAL Routine 11/30/2008 6:05 AM CDT PATHOLOGY Routine 11/29/2008 5:00 PM CDT POC , URINE Routine 11/29/2008 11:15 AM CDT HEMOGLOBIN AND HEMATOCRIT Routine 11/24/2008 9:21 AM DIRECTOR CORPORATE SALES TYPE AND SCREEN Routine 11/24/2008 9:20 AM DIRECTOR CORPORATE SALES documented in this encounter Results * (ABNORMAL) CBC WITH DIFFERENTIAL (11/30/2008 6:05 AM CDT) HEMOGLOBIN 11.8 11.8 - 14.8 g/dL [facility] RDW 12.8 11.5 - 14.5 % [facility] WBC 16.0(H) 4.0 - 9.8 K/uL [facility] MCH 32.0 27.2 - 32.6 pg [facility] MPV 11.5 9.3 - 12.4 fL [facility] HEMATOCRIT 36.0 35.5 - 44.0 % [facility] RDW-STDEV 45.6 37.1 - 48.7 fL [facility] RBC 3.69(L) 3.90 - 4.90 M/uL [facility] MCHC 32.8 31.5 - 35.5 % [facility] MCV 97.6 82.0 - 99.0 fL [facility] PLATELETS 230 140 - 350 K/uL [facility] LYMPHOCYTE ABSOLUTE 1.76 0.70 - 4.50 K/uL [facility] BANDS 1 0 - 5 % [facility] METAMYELOCYTE 3(H) <=0 % [facility] BASOPHILS ABSOLUTE 0.00 0.00 - 0.20 K/uL [facility] REVIEWED ON SMEAR Plt reviewed [facility] EOSINOPHILS 0 0 - 7 % [facility] MONOCYTE ABSOLUTE 0.32 0.10 - 1.30 K/uL [facility] PLATELET EST. Consistent w/ count Normal [facility] LYMPHOCYTES 11(L) 16 - 45 % [facility] NEUTROPHIL ABSOLUTE 13.44(H) 1.90 - 7.00 K/uL [facility] NEUTROPHILS, SEG 83(H) 45 - 70 % [facility] BASOPHILS 0 0 - 2 % [facility] EOSINOPHIL ABSOLUTE 0.00 0.00 - 0.70 K/uL [facility] MONOCYTES 2(L) 3 - 13 % [facility] RBC MORPHOLOGY Normal Normal [facility] Blood specimen (specimen) 11/30/2008 6:05 AM CDT 11/30/2008 6:19 AM CDT us Sanjay Cardona MD HEMATOLOGY ORDERABLES Edited INTERFACE SYSTEM Refer to clinic/hospital department [facility] CLIA# [id number] [address] [place] [address] * PATHOLOGY (11/29/2008 5:00 PM CDT) FINAL REPORT [address] [address] Patient: COLEEN REARDON : 1960 Procedure Date: 11/29/2008 Accession Date: 11/30/2008 Case No: [id number] Ordering Dr: SANJAY CARDONA Case types AW, BW, FW, NW and SH are performed by [place], [place] SURGICAL PATHOLOGY & NON-GYNECOLOGIC CYTOPATHOLOGY REPORT DIAGNOSIS UTERUS, CERVIX, HYSTERECTOMY: - PARAKERATOSIS. UTERUS, ENDOMETRIUM, HYSTERECTOMY: - PROLIFERATIVE PATTERN. UTERUS, MYOMETRIUM, HYSTERECTOMY: - LEIOMYOMA. OVARIES, RIGHT AND LEFT, BILATERAL OOPHORECTOMY: - CORPUS LUTEUM. FALLOPIAN TUBES, RIGHT AND LEFT, BILATERAL SALPINGO-OOPHORECT JOCELYN: - NO PATHOLOGIC DIAGNOSIS. Specimen Description: Uterus, cervix, bilateral fallopian tubes and ovaries. Operative Procedure: da Tim hysterectomy and bilateral salpingo-oophorect jocelyn. Patient Information/Histor y/Diagnosis: Elevated CA-125. Gross: Received in a single container labeled Coleen Reardon., uterus, cervix, bilateral fallopian tubes and ovaries are a 120 g, 8.5 x 5.5 x 4.5 cm uterus and bilateral unattached adnexa. The uterine serosa is finnegan, erythematous, and focally disrupted. The cervix measures 2.8 x 2.6 cm and has a 1 cm, slit-like os. The endocervical canal measures 4.3 cm long and is lined by finnegan, herringbone mucosa. The endometrial cavity measures 2.8 x 2.2 cm and is lined by 0.1 cm thick, finnegan endometrium. The myometrium measures 2.2 cm thick and is unremarkable. The larger ovary and tube measure 3.5 x 3 x 2.4 cm and 3.5 cm long x 0.4 cm in diameter, respectively. The ovary contains multiple clear fluid-filled, smooth-walled cysts ranging from 0.8 to 1.5. The tube is unremarkable. The smaller ovary and tube measure 3 x 2.2 x 1 cm and 4.6 cm long x 0.4 cm in diameter, respectively, and are unremarkable. Sections are submitted as follows: A1- anterior cervix; A2-posterior cervix; A3-anterior endomyometrium with serosa; A4-posterior endomyometrium with serosa; A5-larger ovary and tube; A6-smaller ovary and tube. [facility] 11.30.2008 12:04 pm Microscopic: The slides are labeled [id number], Coleen Malcolmsalvador. The ectocervical mucosa is parakeratotic. No endocervical glandular atypia is seen. The endometrium has a proliferative pattern. The myometrium contains a small, well-circumscribed leiomyoma composed of interlacing fascicles of cytologically bland, smooth muscle cells without significant mitotic activity. One of the ovaries contains a corpus luteum and several cystic follicles. The other ovary and fallopian tubes are unremarkable. [facility] 12.01.2008 02:36 pm Staging Form: No. ELECTRONIC SIGNATURE FOR NINO GAMINO M.D.- 12/01/08 03:11 pm INTERFACE SYSTEM 11/29/2008 5:00 PM CDT us Sanjay Cardona MD PATHOLOGY/CYTOLOGY ORDERABLE S Final Result INTERFACE SYSTEM Refer to clinic/hospital department * POC , URINE (11/29/2008 11:15 AM CDT) , URINE POC Negative Negative [facility] Urine specimen (specimen) 11/29/2008 11:15 AM CDT 11/29/2008 11:15 AM CDT Sanjay Cardona MD POINT OF CARE TESTING Final Result Performing Organization Address [facility] de Phone Number INTERFACE SYSTEM Refer to clinic/hospital department [facility] CLIA# [id number] [address] [place] [address] * (ABNORMAL) HEMOGLOBIN AND HEMATOCRIT (11/24/2008 9:21 AM DIRECTOR CORPORATE SALES) HEMATOCRIT 44.2(H) 35.5 - 44.0 % [facility] HEMOGLOBIN 14.5 11.8 - 14.8 g/dL [facility] Blood specimen (specimen) 11/24/2008 9:21 AM DIRECTOR CORPORATE SALES 11/24/2008 9:50 AM DIRECTOR CORPORATE SALES Sanjay Cardona MD HEMATOLOGY ORDERABLES Final Result Performing Organization Address [facility] Phone Number INTERFACE SYSTEM Refer to clinic/hospital department [facility] CLIA# [id number] [address] [place] [address] * TYPE AND SCREEN (11/24/2008 9:20 AM DIRECTOR CORPORATE SALES) HISTORY CHECK No Historical ABO/Rh [facility] SPECIMEN LIFE 3 days from OR date [facility] ABO/RH TYPE A Positive [facility] ANTIBODY SCREEN Negative [facility] Blood specimen (specimen) 11/24/2008 9:20 AM DIRECTOR CORPORATE SALES us Sanjay Cardona MD BLOOD BANK ORDERABLES Edited INTERFACE SYSTEM Refer to clinic/hospital department [facility] CLIA# [id number] [address] [place] [address] documented in this encounter Visit Diagnoses Not on filedocumented in this encounter Care Teams Nitric Acid Plant Operator Relationship Specialty Start Date End Date Jeffery Landa DO PCP - General Internal Medicine 12/06/23 documented as of this encounter
--- OUTSIDE RECORDS SUMMARY | 2024-11-06 09:52 | XMS_ITS | Encounter Summary ---
Author Organization [facility] Address [address] [place] [address] Care Team Providers Care Contact Center Manager Name Role Phone Jeffery Landa Primary Care Provider +1- [phone] Encounter Details Date Type Department Care Team (Late st Contact Info) Description 10/17/2005 Orders Only [facility] Primary Care - [address] [place] [address] Sahil Voss MD NO ADDRESS ON FILE Social History Tobacco Use Types Packs/Day Years Used Date Smoking Tobacco: Never Assessed Comments Unknown Sex and Gender Information Value Date Recorded Sex Assigned at Not on file Legal Sex Female 3:35 AM PRIMER INSPECTOR Gender Identity Not on file Sexual Orientation Not on file documented as of this encounter Progress Notes * Sahil Voss MD - 07/01/2008 12:48 PM CDT TIME:03:43 pm PATIENT`S HOME PHONE: PATIENT`S WORK PHONE: PATIENT`S INSURANCE: [facility] WHO TOOK THE CALL: Niki De La Rosa M GENERAL INFORMATION PATIENT STATUS: Established Patient. LAST VISIT: 07/10/05 PCP: marc. GABINO PHONE NUMBER: [phone] lmor with time. WHO CALLED: Patient called. CURRENT ALLERGY LIST: NO KNOWN ALLERGIES [facility] NUMBER: [phone] PROBLEMS: CONGESTION: Patient complains of sinus congestion, complains of head congestion, complains of nasalcongestion. The symptoms began approximately 1 day ago. PAIN: Patient complains of pain. right arm pain , no swelling. no injury x 1mo SORE THROAT: Patient complains of sore throat. no fever SECTION 1: REQUESTED ACTION luba 10/17/05 at 03:45 pm: APPOINTMENT REQUEST: Patient wants an appointment within the next few days, no appointments available. ofe /niki DOCTOR`S RESPONSE: conwpg 10/17/05 at 04:41 pm rx sinus sx. arm sx arm are not acute and can be seen next week. MEDICATIONS: Call in to Pharmacy CEFUROXIME AXETIL ORAL TABLET 250 MG, 1 Two Times A Day, 20 Dispensed, status: NEW PRESCRIPTION, 10/17/2005. FINAL ACTION: zach 10/17/05 at 04:47 pm Spoke with patient 10/18/05 at 09:03 am. Left message on patient`s recorder or with a family member 10/17/2005 at 04:47 pm. /rock Called pharmacy at 10/18/05 at 09:03 am. / Yulissa Electronically Signed by: Yulissa Dietrich on September documented in this encounter Plan of Treatment Not on file documented as of this encounter Visit Diagnoses Not on filedocumented in this encounter Care Teams Contact Center Manager Relationship Specialty Start Date End Date Jeffery Landa DO PCP - General Internal Medicine 12/06/23 documented as of this encounter
--- OUTSIDE RECORDS SUMMARY | 2024-11-06 09:52 | XMS_ITS | Encounter Summary ---
Author Organization [facility] Address [address] [place] [address] Care Team Providers Care Cattle Shipper Name Role Phone Jeffery Landa Primary Care Provider +1- [phone] Encounter Details Date Type Department Care Team (Late st Contact Info) Description 07/21/2007 Orders Only [facility] Primary Care - [address] [place] [address] Sahil Voss MD NO ADDRESS ON FILE Social History Tobacco Use Types Packs/Day Years Used Date Smoking Tobacco: Never Assessed Comments Unknown Sex and Gender Information Value Date Recorded Sex Assigned at Not on file Legal Sex Female 3:35 AM INCOMING FREIGHT CLERK Gender Identity Not on file Sexual Orientation Not on file documented as of this encounter Progress Notes * Sahil Voss MD - 02/06/2008 2:14 PM CDT TEMPERATURE: 97.5??f Oral WEIGHT: [id number] BLOOD PRESSURE: 100/70 Right Arm Sitting NURSE NAME: Mariposa Escoto K ALLERGIES: No known drug allergies. TOBACCO USE Patient is a current tobacco user. MEDICATIONS: Patient is taking no medications at present. CHIEF COMPLAINT Patient complains of sinus congestion, chest congestion. HISTORY: HISTORY OF PRESENT ILLNESS: UPPER RESPIRATORY: Onset is sudden. The upper respiratory symptoms began approximately 3 days ago. The patient has no symptoms of chest congestion, sputum is yellow, no symptoms of dyspnea on exertion, symptoms include ear popping, no symptoms of fever, no symptoms of headache, symptoms include nasal congestion, symptoms include nasal discharge, no symptoms of nausea, no symptoms of shortness of breath, no symptoms of wheezing. PHYSICAL EXAMINATION: CONSTITUTIONAL: GENERAL APPEARANCE: Healthy appearing patient in no distress. EARS, NOSE, MOUTH AND THROAT: EARS: Tympanic membranes shiny without retraction. Canals unremarkable. Hearing grossly normal. NOSE (AND SINUS): No vesicles of the nasal airways, TURBINATES INFLAMED BILATERALLY. NECK/THYROID: Trachea midline. No thyroid enlargement, tenderness, or mass. No supraclavicular or cervical adenopathy. RESPIRATORY: Clear to auscultation and percussion. Normal respiratory effort. CARDIOVASCULAR: CARDIAC: Regular rhythm. No murmurs, rubs, or gallops. ARTERIAL: No aortic bruits. ASSESSMENT/PLAN: 461.9-SINUSITIS UNSPECIFIED Will treat with antibiotic and antihistamine containing cough syrup. MEDICATIONS: BROMETANE DX ORAL SYRUP 30-2-10 MG/5ML FLUIDOUNCES, two teasoons qid prn, 8 Dispensed, status: CONTINUED, 07/21/2007. Electronically Signed by: Sahil Voss MD on Saturday, July 21, 2007 documented in this encounter Plan of Treatment Not on file documented as of this encounter Visit Diagnoses Not on filedocumented in this encounter Care Teams Cattle Shipper Relationship Specialty Start Date End Date Jeffery Landa DO PCP - General Internal Medicine 12/06/23 documented as of this encounter
--- OUTSIDE RECORDS SUMMARY | 2024-11-06 09:52 | XMS_ITS | Encounter Summary ---
Author Organization [facility] Address [address] [place] [address] Care Team Providers Care Medical Staff Assistant Name Role Phone Jeffery Landa DO Primary Care Provider +1- [phone] Encounter Details Date Type Department Care Team (Late st Contact Info) Description 02/06/2008 Outpatient Historical [facility] Primary Care - [address] [place] [address] Sahil Voss MD NO ADDRESS ON FILE Social History Tobacco Use Types Packs/Day Years Used Date Smoking Tobacco: Never Assessed Comments Unknown Sex and Gender Information Value Date Recorded Sex Assigned at Not on file Legal Sex Female 3:35 AM SELLING SPECIALIST Gender Identity Not on file Sexual Orientation Not on file documented as of this encounter Plan of Treatment Not on file documented as of this encounter Visit Diagnoses Not on filedocumented in this encounter Care Teams Medical Staff Assistant Relationship Specialty Start Date End Date Jeffery Landa DO PCP - General Internal Medicine 12/06/23 documented as of this encounter
--- OUTSIDE RECORDS SUMMARY | 2024-11-06 09:52 | XMS_ITS | Encounter Summary ---
Author Organization [facility] Address [address] [place] [address] Care Team Providers Care Materials Director Name Role Phone Jeffery Landa DO Primary Care Provider +1- [phone] Encounter Details Date Type Department Care Team (Late st Contact Info) Description 12/24/2006 Outpatient Historical [facility] Primary Care - [address] [place] [address] Sahil Voss MD NO ADDRESS ON FILE Social History Tobacco Use Types Packs/Day Years Used Date Smoking Tobacco: Never Assessed Comments Unknown Sex and Gender Information Value Date Recorded Sex Assigned at Not on file Legal Sex Female 3:35 AM LOSS PREVENTION DETECTIVE Gender Identity Not on file Sexual Orientation Not on file documented as of this encounter Last Filed Vital Signs Vital Sign Reading Time Taken Comments Blood Pressure 120/70 12/24/2006 3:00 PM CDT Pulse - - Temperature 36.7 C (98.1 F) 12/24/2006 3:00 PM CDT Respiratory Rate - - Oxygen Saturation - - Inhaled Oxygen Concentration - - Weight 68 kg (150 lb) 12/24/2006 3:00 PM CDT Height - - Body Mass Index - - documented in this encounter Plan of Treatment Not on file documented as of this encounter Visit Diagnoses Not on filedocumented in this encounter Care Teams Materials Director Relationship Specialty Start Date End Date Jeffery Landa DO PCP - General Internal Medicine 12/06/23 documented as of this encounter
--- OUTSIDE RECORDS SUMMARY | 2024-11-06 09:52 | XMS_ITS | Encounter Summary ---
Author Organization [facility] Address [address] [place] [address] Care Team Providers Care Glove Printer Name Role Phone Jeffery Landa DO Primary Care Provider +1- [phone] Encounter Details Date Type Department Care Team (Late st Contact Info) Description 09/03/2000 Outpatient Historical [facility] Primary Care - [address] [place] [address] Sahil Voss MD NO ADDRESS ON FILE Social History Tobacco Use Types Packs/Day Years Used Date Smoking Tobacco: Never Assessed Comments Unknown Sex and Gender Information Value Date Recorded Sex Assigned at Not on file Legal Sex Female 3:35 AM MED SPECIALIST Gender Identity Not on file Sexual Orientation Not on file documented as of this encounter Plan of Treatment Not on file documented as of this encounter Visit Diagnoses Not on filedocumented in this encounter Care Teams Glove Printer Relationship Specialty Start Date End Date Jeffery Landa DO PCP - General Internal Medicine 12/06/23 documented as of this encounter
--- OUTSIDE RECORDS SUMMARY | 2024-11-06 09:52 | XMS_ITS | Encounter Summary ---
Author Organization [facility] Address [address] [place] [address] Care Team Providers Care Printed Circuit Board Pcb Draftsman Name Role Phone Jeffery Landa DO Primary Care Provider +1- [phone] Encounter Details Date Type Department Care Team (Late st Contact Info) Description 09/02/2002 Outpatient Historical [facility] Primary Care - [address] [place] [address] Sahil Voss MD NO ADDRESS ON FILE Social History Tobacco Use Types Packs/Day Years Used Date Smoking Tobacco: Never Assessed Comments Unknown Sex and Gender Information Value Date Recorded Sex Assigned at Not on file Legal Sex Female 3:35 AM CHEMIST PHYSICAL Gender Identity Not on file Sexual Orientation Not on file documented as of this encounter Plan of Treatment Not on file documented as of this encounter Visit Diagnoses Not on filedocumented in this encounter Care Teams Printed Circuit Board Pcb Draftsman Relationship Specialty Start Date End Date Jeffery Landa DO PCP - General Internal Medicine 12/06/23 documented as of this encounter
--- OUTSIDE RECORDS SUMMARY | 2024-11-06 09:52 | XMS_ITS | Encounter Summary ---
Author Organization [facility] Address [address] [place] [address] Care Team Providers Care Ingot Supervisor Name Role Phone Jeffery Landa DO Primary Care Provider +1- [phone] Encounter Details Date Type Department Care Team (Latest Contact Info) Description 07/29/2008 Outpatient Historical [facility], [address] Sahil Voss MD NO ADDRESS ON FILE Urinary Tract Infection, Site not Specified Social History Tobacco Use Types Packs/Day Years Used Date Smoking Tobacco: Never Assessed Comments No Sex and Gender Information Value Date Recorded Sex Assigned at Not on file Legal Sex Female 3:35 AM SENIOR PORTFOLIO ANALYST Gender Identity Not on file Sexual Orientation Not on file documented as of this encounter Plan of Treatment Not on file documented as of this encounter Visit Diagnoses Diagnosis Urinary tract infection, site not specified documented in this encounter Care Teams Ingot Supervisor Relationship Specialty Start Date End Date Jeffery Landa DO PCP - General Internal Medicine 12/06/23 documented as of this encounter
--- OUTSIDE RECORDS SUMMARY | 2024-11-06 09:52 | XMS_ITS | Encounter Summary ---
Author Organization [facility] Address [address] [place] [address] Care Team Providers Care Marine Cargo Inspector Name Role Phone Jeffery Landa Primary Care Provider +1- [phone] Encounter Details Date Type Department Care Team (Late st Contact Info) Description 12/24/2006 Orders Only [facility] Primary Care - [address] [place] [address] Sahil Voss MD NO ADDRESS ON FILE Social History Tobacco Use Types Packs/Day Years Used Date Smoking Tobacco: Never Assessed Comments Unknown Sex and Gender Information Value Date Recorded Sex Assigned at Not on file Legal Sex Female 3:35 AM VP SOFTWARE Gender Identity Not on file Sexual Orientation Not on file documented as of this encounter Progress Notes * Sahil Voss MD - 02/12/2008 2:07 PM CDT TEMPERATURE: 98.1??f Oral WEIGHT: 150lbs BLOOD PRESSURE: 120/70 Right Arm Sitting NURSE NAME: Mariposa Escoto K ALLERGIES: No known drug allergies. MEDICATIONS: Patient is taking no medications at present. CHIEF COMPLAINT Patient complains of cough. HISTORY: HISTORY: She is here with multiple issues. 305.1-TOBACCO ABUSE The patient continues to smoke 1 pack of cigarettes per day despite the awareness that this is harmful. The patient has made several failed attempts to stop using tobacco. She would like to consider the use of Chantix. We discussed the nature of the medication and it's use. 311-DEPRESSION She did not feel good on the Celexa and stopped it. She has been coping with as needed use of Xanax to this point and generally doing well. She has difficult times and expects there jerry days on upcoming anniversaries when she will have difficulty performing her work duties and thisis certainly reasonable. 461.9-SINUSITIS UNSPECIFIED She has had weeks of symptoms of cough, congestion, drainage. Responding to Brometane but no chills or discolored phlegm was noted until the past couple days when she developed sinus pressure and pressure in her ears. She denies any significant shortness of breath. HISTORY OF PRESENT ILLNESS: UPPER RESPIRATORY: Onset is sudden. The upper respiratory symptoms began weeks ago. Patient has no symptoms of cough, symptoms include ear popping, symptoms include facial pain, symptoms include hoarseness, symptoms include post nasal drainage, mild wheezing. PHYSICAL EXAMINATION: CONSTITUTIONAL: GENERAL APPEARANCE: Healthy appearing patient in no distress. EARS, NOSE, MOUTH AND THROAT: EARS: Tympanic membranes shiny without retraction. Canals unremarkable. Hearing grossly normal. NOSE (AND SINUS): TURBINATES INFLAMED BILATERALLY, TURBINATES RED BILATERALLY. ORAL: Inspection of gums, lips, palate, and teeth normal. No scars, lesions, or masses. Oral mucosa unremarkable with non-inflamed posterior pharynx. NECK/THYROID: Trachea midline. No thyroid enlargement, tenderness, or mass. No supraclavicular or cervical adenopathy. RESPIRATORY: Clear to auscultation and percussion. Normal respiratory effort. CARDIOVASCULAR: CARDIAC: Regular rhythm. No murmurs, rubs, or gallops. ARTERIAL: No aortic bruits. EDEMA/VARICOSITIES OF EXTREMITIES: No edema or varicosities. GASTROINTESTINAL: ABDOMEN: Soft, non-tender, without masses. Bowel sounds active. LIVER/SPLEEN/KIDNEY: No hepatosplenomegaly, tenderness or nodularity. Kidneys not palpable. ASSESSMENT/PLAN: 305.1-TOBACCO ABUSE Will give a trial of Chantix. We talked about the nature of the medicine and it's usefulness. MEDICATIONS: CHANTIX STARTING MONTH JACKSON ORAL MISCELLANEOUS 0.5 MG X 11 & 1 MG X 14 PACKS, use as directed, 1Dispensed, status: NEW PRESCRIPTION, 12/24/2006. CHANTIX CONTINUING MONTH JACKSON ORAL TABLET 1 MG PACKS, use as directed, 1 Dispensed, 3 Fills, status:NEW PRESCRIPTION, 12/24/2006. 311-DEPRESSION She is coping better. Will refill her Xanax at this time. 461.9-SINUSITIS UNSPECIFIED Secondary cough. Treat with antibiotic and cough syrup. ASSESSMENT: MEDICATIONS: BROMETANE DX ORAL SYRUP 30-2-10 MG/5ML FLUIDOUNCES, two teasoons qid prn, 8 Dispensed, status: CONTINUED, 12/24/2006. AMOXICILLIN-POT CLAVULANATE ORAL TABLET 875-125 MG, 1 Two Times A Day, 20 Dispensed, status: CONTINUED, 12/24/2006. Electronically Signed by: Sahil Voss MD on Saturday, December 25, 2006 documented in this encounter Plan of Treatment Not on file documented as of this encounter Visit Diagnoses Not on filedocumented in this encounter Care Teams Marine Cargo Inspector Relationship Specialty Start Date End Date Jeffery Landa DO PCP - General Internal Medicine 12/06/23 documented as of this encounter
--- OUTSIDE RECORDS SUMMARY | 2024-11-06 09:52 | XMS_ITS | Encounter Summary ---
Author Organization [facility] Address 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 MEDICATIONS: Medication list current. CHIEF COMPLAINT Patient complains of back pain.and rt ear LW HISTORY: HISTORY: 786.52-CHEST WALL PAIN/PAINFUL RESPIRATIONS A month of pain without trauma or strain. It is positional and at times sore with certain movements. 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 no dyspnea or pleuritic element.Hasused tylenol with mild relief. PHYSICAL EXAMINATION: EARS, NOSE, MOUTH AND THROAT: EARS: Tympanic membranes shiny without retraction. Canals unremarkable. Hearing grossly normal. (she had injured it with a Q-tip a few weeks ago and was concerned) RESPIRATORY: Clear to auscultation and percussion. Normal respiratory effort. CARDIOVASCULAR: BREAST/CHEST: Normal chest. to inspection,but tender rhomboids with areas of focal spasm and pain on stretching. ASSESSMENT/PLAN: 786.52-CHEST WALL PAIN/PAINFUL RESPIRATIONS ASSESSMENT: muscular by exam, but if does not respond to med,w ill do chest xray. Electronically Signed by: Sahil Voss MD on August documented in this encounter Plan of Treatment Not on file documented as of this encounter Visit Diagnoses Not on filedocumented in this encounter Care Teams Director Business Integration Relationship Specialty Start Date End Date Jeffery Landa DO PCP - General Internal Medicine 12/06/23 documented as of this encounter
--- OUTSIDE RECORDS SUMMARY | 2024-11-06 09:53 | XMS_ITS | Encounter Summary ---
Author Organization [facility] Address [address] [place] [address] Care Team Providers Care Signal And Communications Maintainer Name Role Phone Jeffery Landa Primary Care Provider +1- [phone] Encounter Details Date Type Department Care Team (Late st Contact Info) Description 09/08/2007 Orders Only [facility] Primary Care - [address] [place] [address] Sahil Voss MD NO ADDRESS [...] Notes * Sahil Voss MD - 02/05/2008 12:01 PM CDT TIME:10:16 am PATIENT`S HOME PHONE: PATIENT`S WORK PHONE: PATIENT`S INSURANCE: [facility] WHO TOOK THE CALL: Gauri Camarillo GENERAL INFORMATION PATIENT STATUS: Established Patient. LAST VISIT: PCP: marc. ALTERNATIVE PHONE NUMBER: [phone] WHO CALLED: Patient called. CURRENT ALLERGY LIST: ZITHROMAX PHARMACY NUMBER: [id number] SECTION 1: REQUESTED ACTION cortez 09/08/07 at 10:16 am: gives abd cramping MEDICATION REQUEST: Patient requests a change in current medication. MEDICATIONS: ZITHROMAX Z-JACKSON ORAL TABLET 250 MG, use as directed, 1 Dispensed, status: NEW PRESCRIPTION, 09/05/2007, Comment: called to Karen Duenas. DOCTOR`S RESPONSE: alex 09/08/07 at 03:01 pm MEDICATIONS: Call in to Pharmacy [facility] ORAL CAPSULE CONVENTIONAL 500 MG, 1 Two Times A Day, 14 Dispensed, status: NEW PRESCRIPTION, 09/08/2007. FINAL ACTION: cortez 09/08/07 at 03:11 pm Left message on patient`s recorder or with a family member 09/08/2007 at 03:11 pm. gauri Electronically Signed by: Gauri Camarillo on Saturday, September 08, 2007 documented in this encounter Plan of Treatment Not on file documented as of this encounter Visit Diagnoses Not on filedocumented in this encounter Care Teams Signal And Communications Maintainer Relationship Specialty Start Date End Date Jeffery Landa DO PCP - General Internal Medicine 12/06/23 documented as of this encounter
--- OUTSIDE RECORDS SUMMARY | 2024-11-06 09:53 | XMS_ITS | Patient Health Record ---
Author Organization [facility] [employer] [facility] Address [address] [place] [address] Care Team Providers Care Bar Captain Name Role Phone Sis Hopper APN Primary Care Provider Rachel Forrester Unavailable [phone] Allergies Allergen (clinical drug ingredient) Drug/Non Drug Allergy documented on EMR Reaction Allergy Type Onset Date Status azithromycin Azithromycin Unknown Drug Allergy A ctive morphine Morphine Unknown Drug Allergy Active prednisone Prednisone Unknown Drug Allergy Activ e Reason For Referral No Information Social History Sex Assigned At : Social History Observation Description Sex Assigned At Female Encounters Encounter Location Date Provider Diagnosis [facility] [address] [place] [address] 06/02/2024 Rachel Orozco Plan Of Treatment No Information Insurance Providers Payer Name Payer Address Payer Phone Subscriber Number Group Number Insured Name Patient Relationship to Insured Coverage Start Date Coverage End Date [employer] [address] [place] [address] [id number] Alexys Coleen Self - patient is the insured Medical (General) History Medical History History ICD Code Mixed HLD
--- OUTSIDE RECORDS SUMMARY | 2024-11-06 09:53 | XMS_ITS | Encounter Summary ---
Author Organization [facility] Address [address] [place] [address] Care Team Providers Care Oyster Washer Name Role Phone Sis Hopper NP Primary Care Provider +1 -[phone] Encounter Details Date Type Department Care Team (Late st Contact Info) Description 06/08/2024 Incentient Message Enc [facility] Family Medicine - [place] [address] [facility] [address] [place], [place] [id number] Sis Hopper NP [address] [place], [place] [address] bone density Social History Tobacco Use Types Packs/Day Years [...] documented as of this encounter Care Teams Oyster Washer Relationship Specialty Start Date End Date Sis Hopper NP [address] [place] [address] PCP - General NURSE PRACTITIONER 05/04/24 documented as of this encounter
--- OUTSIDE RECORDS SUMMARY | 2024-11-06 09:53 | XMS_ITS | Encounter Summary ---
Author Organization [facility] Address [address] [place] [address] Care Team Providers Care Conductor Sleeping Car Name Role Phone Jeffery Landa DO Primary Care Provider +1- [phone] Encounter Details Date Type Department Care Team (Late st Contact Info) Description 07/21/2007 Outpatient Historical [facility] Primary Care - [address] [place] [address] Sahil Voss MD NO ADDRESS ON FILE Social History Tobacco Use Types Packs/Day Years Used Date Smoking Tobacco: Never Assessed Comments Unknown Sex and Gender Information Value Date Recorded Sex Assigned at Not on file Legal Sex Female 3:35 AM POLICE INSPECTOR Gender Identity Not on file Sexual Orientation Not on file documented as of this encounter Last Filed Vital Signs Vital Sign Reading Time Taken Comments Blood Pressure 100/70 07/21/2007 3:15 PM CDT Pulse - - Temperature 36.4 C (97.5 F) 07/21/2007 3:15 PM CDT Respiratory Rate - - Oxygen Saturation - - Inhaled Oxygen Concentration - - Weight 70 kg (154 lb 5 oz) 07/21/2007 3:15 PM CD T Height - - Body Mass Index - - documented in this encounter Plan of Treatment Not on file documented as of this encounter Visit Diagnoses Not on filedocumented in this encounter Care Teams Conductor Sleeping Car Relationship Specialty Start Date End Date Jeffery Landa DO PCP - General Internal Medicine 12/06/23 documented as of this encounter
--- OUTSIDE RECORDS SUMMARY | 2024-11-06 09:53 | XMS_ITS | Encounter Summary ---
Author Organization [facility] Address [address] [place] [address] Care Team Providers Care Knitter Mechanic Name Role Phone Jeffery Landa DO Primary Care Provider +1- [phone] Encounter Details Date Type Department Care Team (Late st Contact Info) Description 10/06/2007 Outpatient [facility] Primary Care - [address] [place] [address] Social History Tobacco Use Types Packs/Day Years Used Date Smoking Tobacco: Never Assessed Comments Unknown Sex and Gender Information Value Date Recorded Sex Assigned at Not on file Legal Sex Female 3:35 AM SALOONKEEPER Gender Identity Not on file Sexual Orientation Not on file documented as of this encounter Last Filed Vital Signs Vital Sign Reading Time Taken Comments Blood Pressure 110/80 10/06/2007 2:30 PM SALOONKEEPER Pulse - - Temperature 37 C (98.6 F) 10/06/2007 2:30 PM SALOONKEEPER Respiratory Rate - - Oxygen Saturation - - Inhaled Oxygen Concentration - - Weight 71.3 kg (157 lb 2 oz) 10/06/2007 2:30 PM SALOONKEEPER Height - - Body Mass Index - - documented in this encounter Plan of Treatment Not on file documented as of this encounter Visit Diagnoses Not on filedocumented in this encounter Care Teams Knitter Mechanic Relationship Specialty Start Date End Date Jeffery Landa DO PCP - General Internal Medicine 12/06/23 documented as of this encounter
[2024-11-06 09:58] VITALS: BP 129/59; PULSE 91; RESP 18; TEMP 36.8; O2SAT 94
[2024-11-06 10:11] VITALS: BP 129/59; PULSE 94; RESP 18; TEMP 36.8; O2SAT 94
[2024-11-06 10:11] LABS: EDINFLUASCREEN Positive (Negative); EDINFLUBSCREEN Negative (Negative)
[2024-11-06 10:12] LABS: EDCOVIDSCREEN Negative (Negative)
== END 2024-11-06 10:18 | disposition home or self-care (01) ==
PROVIDERS: Emergency Provider Nurse Practitioner Family; PCP Nurse Practitioner
DX: J10.1 Influenza due to other identified influenza virus with other respiratory manifestations (principal); F17.210 Nicotine dependence, cigarettes, uncomplicated; Z20.822 Contact with and (suspected) exposure to COVID-19
CPT/HCPCS: 87426; 87804; 99213; G0463

== ENCOUNTER 2024-12-19 13:58 | Emergency (ER) | payer OTHER, SELFPAY ==
--- NOTE | ~2024-12-19 | XR_ITS ---
CHEST RADIOGRAPH CLINICAL HISTORY: chest pain . COMPARISON: 07/13/2020 TECHNIQUE: Single portable view of the chest. FINDINGS The cardiomediastinal silhouette is unremarkable. The lungs are clear. IMPRESSION: No focal infiltrate or effusion. Reviewed, dictated and finalized at location A.
--- NOTE | ~2024-12-19 | XR_ITS ---
HISTORY: shoulder pain, no trauma COMPARISON: None TECHNIQUE: 2 views of the left shoulder were performed FINDINGS: No acute fracture. Inferior positioning of the left humeral head without medial transition to suggest acute anterior dis location. IMPRESSION: As above. Reviewed, dictated and finalized at location A. IMPRESSION: As above.
--- NOTE | ~2024-12-19 | XR_ITS ---
HISTORY: shoulder pain, no trauma COMPARISON: None TECHNIQUE: 2 views of the right shoulder were performed FINDINGS: No acute fracture. 12 mm osseous density projecting along the expected course of the supraspinatus tendon for which tend inosis is suspected. The visualized portion of the adjacent right lung is clear. The humeral head is well seated within the glenoid fossa. IMPRESSION: No acute fracture or anterior dislocation. Possible supraspinatus tendinosis, as detailed above. Reviewed, dictated and finalized at location A.
[2024-12-19 14:00] VITALS: BP 158/97; PULSE 86; RESP 14; TEMP 36.8; O2SAT 100
--- OUTSIDE RECORDS SUMMARY | 2024-12-19 14:00 | XMS_ITS | Clinical Summary ---
Author Organization [facility] Address [address] [place] [address] Phone Care Team Providers Care Psychiatric Social Worker Supervisor Name Role Phone Jeffery Landa Primary Care Provider +1- [phone] Allergies Active Allergy Reactions Criticality Noted Date [...] Voss MD Referring Provider: Sanjay Cardona MD [address] [place] [address] Other: Problem Noted Date Diagnosed Date History [...] Encounters Date Type Department Care Team Description 12/09/2024 External Device Data [facility] ABSTRACTION Provider, Abstract 12/02/2024 External Device Data [facility] ABSTRACTION Provider, Abstract 12/01/2024 External Device Data [facility] ABSTRACTION Provider, Abstract 11/30/2024 External Device Data [facility] ABSTRACTION Provider, Abstract 11/28/2024 External Device Data [facility] ABSTRACTION Provider, Abstract 11/28/2024 External Device Data [facility] ABSTRACTION Provider, Abstract 11/25/2024 External Device Data [facility] ABSTRACTION Provider, Abstract 11/11/2024 External Device Data [facility] ABSTRACTION Provider, Abstract 10/15/2024 External Device Data [facility] ABSTRACTION Provider, Abstract 10/06/2024 External Device Data [facility] ABSTRACTION Provider, Abstract from Last 3 Months Immunizations Immunization Administration Dates Next Due (PREVNAR 20)(6 WKS UP) PNEUM OCOCCAL CONJUGATE VACCINE 20-VALENT (PCV20), POLYSACCHARIDE [id number] CONJUGATE, ADJUVANT 0.5 ML (PF) IM 12/05/2022 [...] on file Legal Sex 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 Gender Identity Not on file [...] Flex Sig/CT Colonography Q 5 years 2007 PAP SMEAR 09/23/2011 09/23/2008 ZOSTER VACCINE (1 of 2) 2012 COLORECTAL SCREENING 08/12/2020 08/12/2015 BREAST CANCER SCREENING 10/08/2023 10/08/19 23, 07/03/2021, 10/11/2015, Additional history exists Colorectal Cancer Screening 12/25/2023 INFLUENZA VACCINE (#1) 2024 2, 07/24/2019, 07/22/2014 Pre-Diabetes and Diabetes Screening 12/08/2026 12/09/2023, 11/22/2022, 05/27/2012 FIT-DNA Q 3 years 12/23/2026 12/24/2023 RSV VACCINE (60+ or ) (1 - 1-dose 75+ series) 2037 PNEUMOCOCCAL VACCINE 0-49 YEARS Completed 3 Lung Cancer Screening Discontinued 12/24/2022 Procedures Procedure Name Priority Date/Time Associated Diagnosis [...] 1:00 PM CDT) COLOGUARD RESULT Negative Negative [facility] Comment: NEGATIVE TEST RESULT. A negative Cologuard [...] (Liset Marin al, N Engl J Med 2014;370(14):1910-6469) The normal value (reference range) for this assay is negative. COLOGUARD RE-SCREENING RECOMMENDATION: Periodic colorectal cancer screening is an important part of preventive healthcare for asymptomatic individuals at average risk for colorectal cancer. Following a negative Cologuard result, the [place] Cancer Society and U.S. Multi-Society Task Force screening guidelines recommend a Cologuard re-screening interval of 3 years. References: [place] [employer] Society Guideline for Colorectal Cancer Screening: https://www.cancer.org/cancer/pslrt-mrddmn-sniedk/uxdybtrgc-zswceyviu-xrlcqqe/ac s-rec ommendations.html.; Carrington DK, Nathan CR, Wes BruceK, Colorectal Cancer Screening: Recommendations for Physicians and Patients from the U.S. Multi-Society Task Force on Colorectal Cancer Screening , Am J Gastroenterology 2017; 112:7509-1716. TEST DESCRIPTION: Composite algorithmic analysis of stool [...] (Liset Marin al, N Engl J Med 2014;370(14):6752-1691.) Cologuard may produce a false negative or false positive result (no colorectal cancer or precancerous polyp present at colonoscopy follow up). A negative Cologuard test result does not guarantee the absence of CRC or advanced adenoma (pre-cancer). The current Cologuard screening interval is every 3 years. ([place] Cancer Society and U.S. Multi-Society Task Force). Cologuard performance data in a 10,000 patient pivotal study using colonoscopy as the reference method can be accessed at the following location: www.[employer].Cone[employer]-IT/results. Additional description of the Cologuard test process, warnings and precautions can be found at www.Technimotionrd.com. Stool STOOL SPECIMEN / Unknown 12/24/2023 1:00 PM CDT 12/25/2023 3:01 PM CDT Jeffery Rodriguez Jeancarlosanay DO BODY FLUIDS AND STOOLS Fin al Result [employer] [place] [facility] # [id number] [address], [address] [place] [address] * HEMOGLOBIN A1C (12/09/2023 11:07 AM CDT) HEMOGLOBIN A1C 5.6 <5.7 % of total Hgb [facility] Comment: For the purpose of screening for the presence of diabetes: <5.7% Consistent with the absence of diabetes 5.7-6.4% Consistent with increased risk for diabetes (prediabetes) > or =6.5% Consistent with diabetes This assay result is consistent with a decreased risk of diabetes. Currently, no consensus exists regarding use of hemoglobin A1c for diagnosis of diabetes in children. According to [place] Diabetes Association (ADA) guidelines, hemoglobin A1c <7.0% represents optimal control in non- diabetic patients. Different metrics may apply to specific patient populations. Standards of Medical Care in Diabetes(ADA). ESTIMATED AVERAGE GLUCOSE (MG/DL) 114 mg/dL [facility] ESTIMATED AVERAGE GLUCOSE (MMOL/L) 6.3 mmol/L [facility] Comment: This test was performed on the Caron joão c503 platform. Effective 12/09/23, a change in test platforms from the Soliz Cruise Consultant to the Caron joão c503 may have shifted HbA1c results compared to historical results. Based on laboratory validation testing conducted at [facility], the Caron platform relative to the Soliz [...] recommended. FASTING:YES FASTING: YES Test Performed at: [facility] [address] [place] [address] Chris Thi Vo Blood 12/09/2023 11:0 7 AM CDT 12/09/2023 11:07 AM CDT Jeffery Landa DO CHEMISTRY ORDERABLES Final Result [facility] [phone] [facility] [address] [place] [address] * CT LUNG SCREENING (LDCT BASELINE OR ANNUAL) (12/24/2022 1:42 PM CDT) Anatomical Region Laterality Modality Chest Computed Tomogra phy 12/24/2022 1:35 PM CDT Impressions 12/25/2022 11:46 AM CDT IMPRESSION: 1. Lung RADS category 2, benign. RECOMMENDATION: 1. Continue annual screening with low dose CT in 12 months. DICTATION LOCATION: [address] Narrative 12/25/2022 11:[address] LUNG [...] degenerative changes throughout the spine. Procedure Note Panchito Joy DO - 12/25/2022 CT LUNG SCREENING WITH REFORMATS [...] CT in 12 months. DICTATION LOCATION: Location [address] [place] [address]. Natalie Moore HEEL SEAT FITTER CT ORDERABLES Final Resul t * MAMMO DIAGNOSTIC BILATERAL W OR WO CAD (10/08/2022) Anatomical Region Laterality Modality Breast Bilateral Mammography us Abstract Provider MAMMO ORDERABLES Edited Result - Final from Last 3 Months or Most Recently Relevant to Health Maintenance Insurance Advance Directives For more information, please contact: [phone] * Full Code (Latest Code Status on File) Date Activated Date Inactivated Comments 08/12/2015 8:42 AM 08/12/2015 12:34 PM * Full Code Date Activated Date Inactivated Comments 07/07/2012 11:02 AM 07/07/2012 4:47 PM * Full Code Date Activated Date Inactivated Comments 07/07/2012 9:47 AM 07/07/2012 11:02 AM * Full Code Date Activated Date Inactivated Comments 07/07/2012 9:06 AM 07/07/2012 9:47 AM Care Teams Psychiatric Social Worker Supervisor Relationship Specialty Start Date End Date Jeffery Landa DO PCP - General Internal Medicine 12/06/23
--- OUTSIDE RECORDS SUMMARY | 2024-12-19 14:00 | XMS_ITS | Encounter Summary ---
Author Organization [facility] Address [address] [place] [address] Care Team Providers Care Grocery Packer Name Role Phone Jeffery Landa DO Primary Care Provider +1- [phone] Encounter Details Date Type Department Care Team (Late st Contact Info) Description 02/06/[address] [facility] Primary Care - [address] [place] [address] Sahil Voss MD NO ADDRESS ON FILE Social History Tobacco Use Types Packs/Day Years Used Date Smoking Tobacco: Never Assessed Comments Unknown Sex and Gender Information Value Date Recorded Sex Assigned at Not on file Legal Sex Female 3:35 AM HRIS SPECIALIST Gender Identity Not on file Sexual Orientation Not on file documented as of this encounter Plan of Treatment Not on file documented as of this encounter Visit Diagnoses Not on filedocumented in this encounter Care Teams Grocery Packer Relationship Specialty Start Date End Date Jeffery Landa DO PCP - General Internal Medicine 12/06/23 documented as of this encounter
--- OUTSIDE RECORDS SUMMARY | 2024-12-19 14:00 | XMS_ITS | Encounter Summary ---
Author Organization [facility] Address 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
--- OUTSIDE RECORDS SUMMARY | 2024-12-19 14:01 | XMS_ITS | Encounter Summary ---
Author Organization [facility] Address [address] [place] [address] Care Team Providers Care Filtrose Crusher Name Role Phone Jeffery Landa DO Primary Care Provider +1- [phone] Encounter Details Date Type Department Care Team (Late st Contact Info) Description 02/06/2008 Outpatient Historical [facility] Primary Care - [address] [place] [address] Sahil Voss MD NO ADDRESS ON FILE Social History Tobacco Use Types Packs/Day Years Used Date Smoking Tobacco: Never Assessed Comments Unknown Sex and Gender Information Value Date Recorded Sex Assigned at Not on file Legal Sex Female 3:35 AM SOLUTIONS CONSULTANT Gender Identity Not on file Sexual Orientation Not on file documented as of this encounter Plan of Treatment Not on file documented as of this encounter Visit Diagnoses Not on filedocumented in this encounter Care Teams Filtrose Crusher Relationship Specialty Start Date End Date Jeffery Landa DO PCP - General Internal Medicine 12/06/23 documented as of this encounter
--- OUTSIDE RECORDS SUMMARY | 2024-12-19 14:01 | XMS_ITS | Encounter Summary ---
Author Organization [facility] Address [address] [place] [address] Care Team Providers Care Mental Health Tech Name Role Phone Jeffery Landa DO Primary Care Provider +1- [phone] Encounter Details Date Type Department Care Team (Late st Contact Info) Description 07/22/2002 Outpatient Historical [facility] Primary Care - [address] [place] [address] Sahil Voss MD NO ADDRESS ON FILE Social History Tobacco Use Types Packs/Day Years Used Date Smoking Tobacco: Never Assessed Comments Unknown Sex and Gender Information Value Date Recorded Sex Assigned at Not on file Legal Sex Female 3:35 AM TRAINING AND QUALITY MANAGER Gender Identity Not on file Sexual Orientation Not on file documented as of this encounter Plan of Treatment Not on file documented as of this encounter Visit Diagnoses Not on filedocumented in this encounter Care Teams Mental Health Tech Relationship Specialty Start Date End Date Jeffery Landa DO PCP - General Internal Medicine 12/06/23 documented as of this encounter
--- OUTSIDE RECORDS SUMMARY | 2024-12-19 14:01 | XMS_ITS | Encounter Summary ---
Author Organization [facility] Address [address] [place] [address] Care Team Providers Care Tool Crib Manager Name Role Phone Sis Hopper NP Primary Care Provider +1 -[phone] Encounter Details Date Type Department Care Team (Late st Contact Info) Description 05/07/2024 [facility]. Fiduciary Message Enc [facility] Family Medicine - [place] [address] [facility] [address] [place], [place] [address] Sis Hopper NP [address] [place], [place] [address] mammogram Social History Tobacco Use Types Packs/Day [...] on filedocumented in this encounter Care Teams Tool Crib Manager Relationship Specialty Start Date End Date Sis Hopper NP [address] [place], [place] [id number] PCP - General NURSE PRACTITIONER 05/04/24 documented as of this encounter
--- OUTSIDE RECORDS SUMMARY | 2024-12-19 14:01 | XMS_ITS | Encounter Summary ---
Author Organization [facility] Address [address] [place] [address] Care Team Providers Care Stock Handler Name Role Phone Jeffery Landa DO Primary Care Provider +1- [phone] Encounter Details Date Type Department Care Team (Late st Contact Info) Description 08/13/2003 Outpatient Historical [facility] Primary Care - [address] [place] [address] Sahil Voss MD NO ADDRESS ON FILE Social History Tobacco Use Types Packs/Day Years Used Date Smoking Tobacco: Never Assessed Comments Unknown Sex and Gender Information Value Date Recorded Sex Assigned at Not on file Legal Sex Female 3:35 AM SECURITY DISPATCHER Gender Identity Not on file Sexual Orientation Not on file documented as of this encounter Plan of Treatment Not on file documented as of this encounter Visit Diagnoses Not on filedocumented in this encounter Care Teams Stock Handler Relationship Specialty Start Date End Date Jeffery Landa DO PCP - General Internal Medicine 12/06/23 documented as of this encounter
--- OUTSIDE RECORDS SUMMARY | 2024-12-19 14:01 | XMS_ITS | Encounter Summary ---
Author Organization [facility] Address [address] [place] [address] Care Team Providers Care Reliability Technologist Name Role Phone Jeffery Landa DO Primary Care Provider +1- [phone] Encounter Details Date Type Department Care Team (Late st Contact Info) Description 12/24/2006 Outpatient Historical [facility] Primary Care - [address] [place] [address] Sahil Voss MD NO ADDRESS ON FILE Social History Tobacco Use Types Packs/Day Years Used Date Smoking Tobacco: Never Assessed Comments Unknown Sex and Gender Information Value Date Recorded Sex Assigned at Not on file Legal Sex Female 3:35 AM PRESCHOOL PRINCIPAL Gender Identity Not on file Sexual Orientation [...] on filedocumented in this encounter Care Teams Reliability Technologist Relationship Specialty Start Date End Date Jeffery Landa DO PCP - General Internal Medicine 12/06/23 documented as of this encounter
--- OUTSIDE RECORDS SUMMARY | 2024-12-19 14:01 | XMS_ITS | Encounter Summary ---
Author Organization [facility] Address [address] [place] [address] Care Team Providers Care Staff Internist Office Based Only Name Role Phone Jeffery Landa Primary Care Provider +1- [phone] Encounter Details Date Type Department Care Team (Late st Contact Info) Description 10/06/2007 Orders Only [facility] Primary Care - [address] [place] [address] Sahil Voss MD NO ADDRESS ON FILE Social History Tobacco Use Types Packs/Day Years Used Date Smoking Tobacco: Never Assessed Comments Unknown Sex and Gender Information Value Date Recorded Sex Assigned at Not on file Legal Sex Female 3:35 AM PHP WORDPRESS DEVELOPER Gender Identity Not on file Sexual Orientation Not on file documented as of this encounter Progress Notes * Sahil Voss MD - 02/04/2008 6:39 PM CDT TEMPERATURE: 98.6??f Oral BLOOD PRESSURE: 110/80 Right Arm Sitting WEIGHT: [id number] NURSE NAME: Mariposa Escoto K ALLERGIES: No known drug allergies. MEDICATIONS: Patient is taking no medications at present. CHIEF COMPLAINT Patient complains of sinus congestion. and lt arm numbness HISTORY: She notes numbness lateral aspect index finger on left over period of weeks. Mild vague sxaround elbow. Neck is mildly stiff, but not painful. 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 PHYSICAL EXAMINATION: left hand 2 nd digit MUSCULOSKELETAL EXAM: HEAD AND NECK: mild muscular tenderness EXTREMITIES: LEFT LOWER EXTREMITY: No misalignment or tenderness. Full range of motion. Normal stability, strength and tone. NEUROLOGIC: electronic game developer and finger strength are fine. DEEP TENDON [...] on filedocumented in this encounter Care Teams Staff Internist Office Based Only Relationship Specialty Start Date End Date Jeffery Landa DO PCP - General Internal Medicine 12/06/23 documented as of this encounter
--- OUTSIDE RECORDS SUMMARY | 2024-12-19 14:01 | XMS_ITS | Encounter Summary ---
Author Organization [facility] Address [address] [place] [address] Care Team Providers Care Jelly Maker Name Role Phone Jeffery Landa DO Primary Care Provider +1- [phone] Encounter Details Date Type Department Care Team (Late st Contact Info) Description 12/03/2000 Outpatient Historical [facility] Primary Care - [address] [place] [address] Sahil Voss MD NO ADDRESS ON FILE Social History Tobacco Use Types Packs/Day Years Used Date Smoking Tobacco: Never Assessed Comments Unknown Sex and Gender Information Value Date Recorded Sex Assigned at Not on file Legal Sex Female 3:35 AM DISTRIBUTION OPERATIONS MANAGER Gender Identity Not on file Sexual Orientation Not on file documented as of this encounter Plan of Treatment Not on file documented as of this encounter Visit Diagnoses Not on filedocumented in this encounter Care Teams Jelly Maker Relationship Specialty Start Date End Date Jeffery Landa DO PCP - General Internal Medicine 12/06/23 documented as of this encounter
--- OUTSIDE RECORDS SUMMARY | 2024-12-19 14:01 | XMS_ITS | Encounter Summary ---
Author Organization [facility] Address [address] [place] [address] Care Team Providers Care Interchange Agent Name Role Phone Jeffery aLnda DO Primary Care Provider +1- [phone] Encounter Details Date Type Department Care Team (Late st Contact Info) Description 08/29/2006 Outpatient [facility] Primary Care - [address] [place] [address] [place] [address] Sahil Voss MD NO ADDRESS ON FILE Social History Tobacco Use Types Packs/Day Years Used Date Smoking Tobacco: Never Assessed Comments Unknown Sex and Gender Information Value Date Recorded Sex Assigned at Not on file Legal Sex Female 3:35 AM MEDICINE ASSISTANT Gender Identity Not on file Sexual Orientation Not on file documented as of this encounter Last Filed Vital Signs Vital Sign Reading Time Taken Comments Blood Pressure 120/80 08/29/2006 3:00 PM MEDICINE ASSISTANT Pulse - - Temperature 37.2 C (98.9 F) 08/29/2006 3:00 PM MEDICINE ASSISTANT Respiratory Rate - - Oxygen Saturation - - Inhaled Oxygen Concentration - - Weight 66.2 kg (146 lb) 08/29/2006 3:00 PM MEDICINE ASSISTANT Height - - Body Mass Index - - documented in this encounter Plan of Treatment Not on file documented as of this encounter Visit Diagnoses Not on filedocumented in this encounter Care Teams Interchange Agent Relationship Specialty Start Date End Date Jeffery Landa DO PCP - General Internal Medicine 12/06/23 documented as of this encounter
--- OUTSIDE RECORDS SUMMARY | 2024-12-19 14:01 | XMS_ITS | Encounter Summary ---
Author Organization [facility] Address [address] [place] [address] Care Team Providers Care Aircraft Painter Name Role Phone Jeffery Landa Primary Care Provider +1- [phone] Encounter Details Date Type Department Care Team (Late st Contact Info) Description 06/05/2006 Orders Only [facility] Primary Care - [address] [place] [address] Sahil Voss MD NO ADDRESS ON FILE Social History Tobacco Use Types Packs/Day Years Used Date Smoking Tobacco: Never Assessed Comments Unknown Sex and Gender Information Value Date Recorded Sex Assigned at Not on file Legal Sex Female 3:35 AM DIE HOLDER Gender Identity Not on file Sexual Orientation [...] on filedocumented in this encounter Care Teams Aircraft Painter Relationship Specialty Start Date End Date Jeffery Landa DO PCP - General Internal Medicine 12/06/23 documented as of this encounter
--- OUTSIDE RECORDS SUMMARY | 2024-12-19 14:01 | XMS_ITS | Encounter Summary ---
Author Organization [facility] Address [address] [place] [address] Care Team Providers Care Supervisor Pleating Name Role Phone Jeffery Landa DO Primary Care Provider +1- [phone] Encounter Details Date Type Department Care Team (Late st Contact Info) Description 09/03/2000 Outpatient Historical [facility] Primary Care - [address] [place] [address] Sahil Voss MD NO ADDRESS ON FILE Social History Tobacco Use Types Packs/Day Years Used Date Smoking Tobacco: Never Assessed Comments Unknown Sex and Gender Information Value Date Recorded Sex Assigned at Not on file Legal Sex Female 3:35 AM SENIOR CONSTRUCTION MANAGER Gender Identity Not on file Sexual Orientation Not on file documented as of this encounter Plan of Treatment Not on file documented as of this encounter Visit Diagnoses Not on filedocumented in this encounter Care Teams Supervisor Pleating Relationship Specialty Start Date End Date Jeffery Landa DO PCP - General Internal Medicine 12/06/23 documented as of this encounter
--- OUTSIDE RECORDS SUMMARY | 2024-12-19 14:01 | XMS_ITS | Encounter Summary ---
Author Organization [facility] Address [address] [place] [address] Care Team Providers Care Nutrition Services Aide Name Role Phone Jeffery Landa DO Primary Care Provider +1- [phone] Encounter Details Date Type Department Care Team (Late st Contact Info) Description 05/15/2000 Outpatient Historical [facility] Primary Care - [address] [place] [address] Sahil Voss MD NO ADDRESS ON FILE Social History Tobacco Use Types Packs/Day Years Used Date Smoking Tobacco: Never Assessed Comments Unknown Sex and Gender Information Value Date Recorded Sex Assigned at Not on file Legal Sex Female 3:35 AM BANKRUPTCY ASSISTANT Gender Identity Not on file Sexual Orientation Not on file documented as of this encounter Plan of Treatment Not on file documented as of this encounter Visit Diagnoses Not on filedocumented in this encounter Care Teams Nutrition Services Aide Relationship Specialty Start Date End Date Jeffery Landa DO PCP - General Internal Medicine 12/06/23 documented as of this encounter
--- OUTSIDE RECORDS SUMMARY | 2024-12-19 14:01 | XMS_ITS | Encounter Summary ---
Author Organization [facility] Address [address] [place] [address] Care Team Providers Care Credit Risk Specialist Name Role Phone Jeffery Landa DO Primary Care Provider +1- [phone] Encounter Details Date Type Department Care Team (Late st Contact Info) Description 03/28/1999 Outpatient Historical [facility] Primary Care - [address] [place] [address] Sahil Voss MD NO ADDRESS ON FILE Social History Tobacco Use Types Packs/Day Years Used Date Smoking Tobacco: Never Assessed Comments Unknown Sex and Gender Information Value Date Recorded Sex Assigned at Not on file Legal Sex Female 3:35 AM GROUP PRESIDENT Gender Identity Not on file Sexual Orientation Not on file documented as of this encounter Plan of Treatment Not on file documented as of this encounter Visit Diagnoses Not on filedocumented in this encounter Care Teams Credit Risk Specialist Relationship Specialty Start Date End Date Jeffery Landa DO PCP - General Internal Medicine 12/06/23 documented as of this encounter
--- OUTSIDE RECORDS SUMMARY | 2024-12-19 14:01 | XMS_ITS | Clinical Summary ---
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 Is not ready to Quit. [...] hypercholesterolemia 05/04/2024 Tobacco use disorder 08/29/2006 024 Encounters Date Type Department Care Team Description 11/09/2024 Telephone [facility] Family Medicine - [place] [address] [facility] [address] [place] [address] Sis Hopper NP Cough; Medication Request 11/06/2024 Scan HEALTH INFO SRVCS Scanned, [facility] from Last 3 Months Immunizations Name Administration Dates Next Due Influenza [...] Adult (#1) 2024 07/24/2019, 07/22/2014 PHQ-2 (Physician [place]) 09/23/2024 06/01/2024 Annual Physical 05/04/2025 05/04/2024 Lung [...] 4:17 PM Narrative 06/11/2024 4:22 PM CDT [place] [address] EXAM: LUNG SCREENING LOW-DOSE CT THORAX WITHOUT [...] Procedure Note Hector Ashton MD - 06/11/[address] [id number] EXAM: LUNG SCREENING LOW-DOSE CT THORAX WITHOUT [...] By: Hector Ashton MD, 06/11/2024 4:17 PM Sis Hopper COMMUTATOR UNDERCUTTER CT Final Res ult * MAMMOGRAM GENERIC (SCAN ORDER) (04/20/2024) Anatomical Region Laterality Modality Other 04/20/2024 [facility] Scanned SCANNING Final Resu lt * COLOGUARD (12/24/2023) COLOGUARD NEGATIVE [facility] STOOL 12/24/2023 [facility] Scanned SCANNING Final Resu lt [facility] ON[facility] from Last 3 Months or Most Recently Relevant to Health Maintenance Insurance [employer] Care Teams Customer Insight Analyst Relationship Specialty Start Date End Date Sis Hopper NP [address] [place], [place] [address] PCP - General NURSE PRACTITIONER 05/04/24
--- OUTSIDE RECORDS SUMMARY | 2024-12-19 14:01 | XMS_ITS | Encounter Summary ---
Author Organization [facility] Address [address] [place] [address] Care Team Providers Care Dozer Operator Name Role Phone Jeffery Landa Primary Care Provider +1- [phone] Encounter Details Date Type Department Care Team (Late st Contact Info) Description 08/29/2006 Orders Only [facility] Primary Care - [address] [place] [address] Sahil Voss MD NO ADDRESS ON FILE Social History Tobacco Use Types Packs/Day Years Used Date Smoking Tobacco: Never Assessed Comments Unknown Sex and Gender Information Value Date Recorded Sex Assigned at Not on file Legal Sex Female 3:35 AM LITIGATION ATTORNEY ASSOCIATE Gender Identity Not on file Sexual Orientation Not on file documented as of this encounter Progress Notes * Sahil Vsos MD - 07/07/2008 1:58 AM CDT TEMPERATURE: [...] sore with certain movements. 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
--- OUTSIDE RECORDS SUMMARY | 2024-12-19 14:01 | XMS_ITS | Encounter Summary ---
Author Organization [facility] Address [address] [place] [address] Care Team Providers Care Dance Master Name Role Phone Jeffery Landa Primary Care Provider +1- [phone] Encounter Details Date Type Department Care Team (Late st Contact Info) Description 09/08/2007 Orders Only [facility] Primary Care - [address] [place] [address] Sahil Voss MD NO ADDRESS ON FILE Social History Tobacco Use Types Packs/Day Years Used Date Smoking Tobacco: Never Assessed Comments Unknown Sex and Gender Information Value Date Recorded Sex Assigned at Not on file Legal Sex Female 3:35 AM OCCUPATIONAL HEALTH NURSING DIRECTOR Gender Identity Not on file Sexual Orientation Not on file documented as of this encounter Progress Notes * Sahil Voss MD - 02/05/2008 12:01 PM CDT TIME:10:16 am PATIENT`S HOME PHONE: PATIENT`S WORK PHONE: PATIENT`S INSURANCE: [facility] WHO TOOK THE CALL: Gauri Camarillo GENERAL INFORMATION PATIENT STATUS: Established Patient. LAST VISIT: PCP: marc. ALTERNATIVE PHONE NUMBER: [phone] WHO CALLED: Patient called. CURRENT ALLERGY LIST: [...] on filedocumented in this encounter Care Teams Dance Master Relationship Specialty Start Date End Date Jeffery Landa DO PCP - General Internal Medicine 12/06/23 documented as of this encounter
--- OUTSIDE RECORDS SUMMARY | 2024-12-19 14:01 | XMS_ITS | Encounter Summary ---
Author Organization [facility] Address [address] [place] [address] Care Team Providers Care Chalk Extruding Machine Operator Name Role Phone Jeffery Landa DO Primary Care Provider +1- [phone] Encounter Details Date Type Department Care Team (Late st Contact Info) Description 10/06/2007 Outpatient [facility] Primary Care - [address] [place] [address] Social History Tobacco Use Types Packs/Day Years Used Date Smoking Tobacco: Never Assessed Comments Unknown Sex and Gender Information Value Date Recorded Sex Assigned at Not on file Legal Sex Female 3:35 AM GREASE PACKER Gender Identity Not on file Sexual Orientation Not on file documented as of this encounter Last Filed Vital Signs Vital Sign Reading Time Taken Comments Blood Pressure 110/80 10/06/2007 2:30 PM GREASE PACKER Pulse - - Temperature 37 C (98.6 F) 10/06/2007 2:30 PM GREASE PACKER Respiratory Rate - - Oxygen Saturation - - Inhaled Oxygen Concentration - - Weight 71.3 kg (157 lb 2 oz) 10/06/2007 2:30 PM GREASE PACKER Height - - Body Mass Index - - documented in this encounter Plan of Treatment Not on file documented as of this encounter Visit Diagnoses Not on filedocumented in this encounter Care Teams Chalk Extruding Machine Operator Relationship Specialty Start Date End Date Jeffery Landa DO PCP - General Internal Medicine 12/06/23 documented as of this encounter
--- OUTSIDE RECORDS SUMMARY | 2024-12-19 14:01 | XMS_ITS ---
Author Organization [facility] Address [facility] [place] [address] Care Team Providers Care Prepress Stripper Name Role Phone Sis Hopper APN Primary Care Provider Rachel Forrester Unavailable [phone] REASON FOR VISIT Cancel Appointment Request Social History Sex Assigned At : Social History Observation Description Sex Assigned At Female Encounters Encounter Location Date Provider Diagnosis [address] [place] [address] 06/02/2024 Rachel Orozco Plan Of Treatment No Information Progress Notes * Coleen REARDON MDOB:1960 (63 yo F)Acc No.[id number]:06/02/2024 Patient: Coleen VILLAFANA :1960 A ge:63 Y S ex:Female Address:[address] [place], [address] * true * Date: Generated for Tamarai sobia/Heraclio/eTransmitting on: 0 12/19/2024 02:00 PM CDT
--- OUTSIDE RECORDS SUMMARY | 2024-12-19 14:01 | XMS_ITS | Encounter Summary ---
Author Organization [facility] Address [address] [place] [address] Care Team Providers Care Pit Laborer Name Role Phone Jeffery Landa DO Primary Care Provider +1- [phone] Encounter Details Date Type Department Care Team (Latest Contact Info) Description 07/29/2008 Outpatient Historical [facility], [address] Sahil Voss MD NO ADDRESS ON FILE Urinary Tract Infection, Site not Specified Social History Tobacco Use Types Packs/Day Years Used Date Smoking Tobacco: Never Assessed Comments No Sex and Gender Information Value Date Recorded Sex Assigned at Not on file Legal Sex Female 3:35 AM BRANCH SERVICES MANAGER Gender Identity Not on file Sexual Orientation Not on file documented as of this encounter Plan of Treatment Not on file documented as of this encounter Visit Diagnoses Diagnosis Urinary tract infection, site not specified documented in this encounter Care Teams Pit Laborer Relationship Specialty Start Date End Date Jeffery Landa DO PCP - General Internal Medicine 12/06/23 documented as of this encounter
--- OUTSIDE RECORDS SUMMARY | 2024-12-19 14:01 | XMS_ITS | Encounter Summary ---
Author Organization [facility] Address [address] [place] [address] Care Team Providers Care Hazardous Waste Technician Name Role Phone Jeffery Landa DO Primary Care Provider +1- [phone] Encounter Details Date Type Department Care Team (Late st Contact Info) Description 11/21/1998 Outpatient Historical [facility] Primary Care - [address] [place] [address] Sahil Voss MD NO ADDRESS ON FILE Social History Tobacco Use Types Packs/Day Years Used Date Smoking Tobacco: Never Assessed Comments Unknown Sex and Gender Information Value Date Recorded Sex Assigned at Not on file Legal Sex Female 3:35 AM MANAGER VIDEO Gender Identity Not on file Sexual Orientation Not on file documented as of this encounter Plan of Treatment Not on file documented as of this encounter Visit Diagnoses Not on filedocumented in this encounter Care Teams Hazardous Waste Technician Relationship Specialty Start Date End Date Jeffery Landa DO PCP - General Internal Medicine 12/06/23 documented as of this encounter
--- OUTSIDE RECORDS SUMMARY | 2024-12-19 14:01 | XMS_ITS | Encounter Summary ---
Author Organization [facility] Address [address] [place] [address] Care Team Providers Care Return To Vendor Name Role Phone Jeffery Landa DO Primary Care Provider +1- [phone] Encounter Details Date Type Department Care Team (Late st Contact Info) Description 11/09/2004 Outpatient Historical [facility] Primary Care - [address] [place] [address] Sahil Voss MD NO ADDRESS ON FILE Social History Tobacco Use Types Packs/Day Years Used Date Smoking Tobacco: Never Assessed Comments Unknown Sex and Gender Information Value Date Recorded Sex Assigned at Not on file Legal Sex Female 3:35 AM DYNAMICS AX CONSULTANT Gender Identity Not on file Sexual Orientation Not on file documented as of this encounter Plan of Treatment Not on file documented as of this encounter Visit Diagnoses Not on filedocumented in this encounter Care Teams Return To Vendor Relationship Specialty Start Date End Date Jeffery Landa DO PCP - General Internal Medicine 12/06/23 documented as of this encounter
--- OUTSIDE RECORDS SUMMARY | 2024-12-19 14:01 | XMS_ITS | Encounter Summary ---
Author Organization [facility] Address [address] [place] [address] Care Team Providers Care Park Ranger Name Role Phone Sis Hopper NP Primary Care Provider +1 -[phone] Encounter Details Date Type Department Care Team (Late st Contact Info) Description 06/08/2024 Investorio.de Message Enc [facility] Family Medicine - [place] [address] [facility] [address] [place], [place] [address] Sis Hopper NP [address] [place], [place] [address] bone density Social History Tobacco Use Types [...] documented as of this encounter Care Teams Park Ranger Relationship Specialty Start Date End Date Sis Hopper NP [address] [place] [address] PCP - General NURSE PRACTITIONER 05/04/24 documented as of this encounter
--- OUTSIDE RECORDS SUMMARY | 2024-12-19 14:01 | XMS_ITS | Encounter Summary ---
Author Organization [facility] Address [address] [place] [address] Care Team Providers Care Clerical Office Name Role Phone Jeffery Landa DO Primary Care Provider +1- [phone] Encounter Details Date Type Department Care Team (Late st Contact Info) Description 06/21/1998 Outpatient Historical [facility] Primary Care - [address] [place] [address] Sahil Voss MD NO ADDRESS ON FILE Social History Tobacco Use Types Packs/Day Years Used Date Smoking Tobacco: Never Assessed Comments Unknown Sex and Gender Information Value Date Recorded Sex Assigned at Not on file Legal Sex Female 3:35 AM PLANER HAND Gender Identity Not on file Sexual Orientation Not on file documented as of this encounter Plan of Treatment Not on file documented as of this encounter Visit Diagnoses Not on filedocumented in this encounter Care Teams Clerical Office Relationship Specialty Start Date End Date Jeffery Landa DO PCP - General Internal Medicine 12/06/23 documented as of this encounter
--- OUTSIDE RECORDS SUMMARY | 2024-12-19 14:01 | XMS_ITS | Encounter Summary ---
Author Organization [facility] Address [address] [place] [address] Care Team Providers Care Sheet Metal Work Furnace Installer Name Role Phone Jeffery Landa DO Primary Care Provider +1- [phone] Encounter Details Date Type Department Care Team (Late st Contact Info) Description 08/20/2001 Outpatient Historical [facility] Primary Care - [address] [place] [address] Sahil Voss MD NO ADDRESS ON FILE Social History Tobacco Use Types Packs/Day Years Used Date Smoking Tobacco: Never Assessed Comments Unknown Sex and Gender Information Value Date Recorded Sex Assigned at Not on file Legal Sex Female 3:35 AM CLINICAL SUPPORT TECH Gender Identity Not on file Sexual Orientation Not on file documented as of this encounter Plan of Treatment Not on file documented as of this encounter Visit Diagnoses Not on filedocumented in this encounter Care Teams Sheet Metal Work Furnace Installer Relationship Specialty Start Date End Date Jeffery Landa DO PCP - General Internal Medicine 12/06/23 documented as of this encounter
--- OUTSIDE RECORDS SUMMARY | 2024-12-19 14:01 | XMS_ITS | Encounter Summary ---
Author Organization [facility] Address [address] [place] [address] Care Team Providers Care Inspector Ball Points Name Role Phone Jeffery Landa DO Primary Care Provider +1- [phone] Encounter Details Date Type Department Care Team (Latest Contact Info) Description 11/17/2008 [facility] NO AD[facility] ON FILE Neck Sprain and Strain Social History Tobacco Use Types Packs/Day Years Used Date Smoking Tobacco: Never Assessed Comments No Sex and Gender Information Value Date Recorded Sex Assigned at Not on file Legal Sex Female 3:35 AM SAFETY ASSOCIATE Gender Identity Not on file Sexual Orientation Not on file documented as of this encounter Plan of Treatment Not on file documented as of this encounter Visit Diagnoses Diagnosis Sprain of neck documented in this encounter Care Teams Inspector Ball Points Relationship Specialty Start Date End Date Jeffery Landa DO PCP - General Internal Medicine 12/06/23 documented as of this encounter
--- OUTSIDE RECORDS SUMMARY | 2024-12-19 14:01 | XMS_ITS | Encounter Summary ---
Author Organization [facility] Address [address] [place] [address] Care Team Providers Care Distribution Technician Name Role Phone Jeffery Landa Primary Care Provider +1- [phone] Encounter Details Date Type Department Care Team (Late st Contact Info) Description 07/21/2007 Orders Only [facility] Primary Care - [address] [place] [address] Sahil Voss MD NO ADDRESS ON FILE Social History Tobacco Use Types Packs/Day Years Used Date Smoking Tobacco: Never Assessed Comments Unknown Sex and Gender Information Value Date Recorded Sex Assigned at Not on file Legal Sex Female 3:35 AM DATA CONTROL CLERK Gender Identity Not on file Sexual Orientation Not on file documented as of this encounter Progress Notes * Sahil Voss MD - 02/06/2008 2:14 PM CDT TEMPERATURE: 97.5??f Oral WEIGHT: [id number] BLOOD PRESSURE: 100/70 Right Arm Sitting NURSE [...] on filedocumented in this encounter Care Teams Distribution Technician Relationship Specialty Start Date End Date Jeffery Landa DO PCP - General Internal Medicine 12/06/23 documented as of this encounter
--- OUTSIDE RECORDS SUMMARY | 2024-12-19 14:01 | XMS_ITS | Encounter Summary ---
Author Organization [facility] Address [address] [place] [address] Care Team Providers Care Certified Hyperbaric Technician Name Role Phone Jeffery Landa DO Primary Care Provider +1- [phone] Encounter Details Date Type Department Care Team (Late st Contact Info) Description 07/10/2005 Outpatient Historical [facility] Primary Care - [address] [place] [address] Shail Voss MD NO ADDRESS ON FILE Social History Tobacco Use Types Packs/Day Years Used Date Smoking Tobacco: Never Assessed Comments Unknown Sex and Gender Information Value Date Recorded Sex Assigned at Not on file Legal Sex Female 3:35 AM CARGO AGENT Gender Identity Not on file Sexual Orientation [...] on filedocumented in this encounter Care Teams Certified Hyperbaric Technician Relationship Specialty Start Date End Date Jeffery Landa DO PCP - General Internal Medicine 12/06/23 documented as of this encounter
--- OUTSIDE RECORDS SUMMARY | 2024-12-19 14:01 | XMS_ITS | Encounter Summary ---
Author Organization [facility] Address [address] [place] [address] Care Team Providers Care Cutter Head Sharpener Name Role Phone Jeffery Landa Primary Care Provider +1- [phone] Encounter Details Date Type Department Care Team (Late st Contact Info) Description 09/17/2006 Orders Only [facility] Primary Care - [address] [place] [address] Sahil Voss MD NO ADDRESS ON FILE Social History Tobacco Use Types Packs/Day Years Used Date Smoking Tobacco: Never Assessed Comments Unknown Sex and Gender Information Value Date Recorded Sex Assigned at Not on file Legal Sex Female 3:35 AM WELDER GAS TUNGSTEN ARC Gender Identity Not on file Sexual Orientation Not on file documented as of this encounter Progress Notes * Sahil Voss MD - 07/07/2008 4:56 AM CDT TIME:11:31 am PATIENT`S HOME PHONE: PATIENT`S WORK PHONE: PATIENT`S INSURANCE: [facility] WHO TOOK THE CALL: Esther Trent A GENERAL INFORMATION PATIENT STATUS: Established Patient. LAST VISIT: 08-29-06 PCP: marc. ALTERNATIVE PHONE NUMBER: [phone] WHO CALLED: Patient called. CURRENT ALLERGY LIST: NO KNOWN ALLERGIES PHARMACY NUMBER: [phone] PROBLEMS: per pt sinus infection/congestion with yellow mucus started [place], pt denies all other symptoms, pt [...] on filedocumented in this encounter Care Teams Cutter Head Sharpener Relationship Specialty Start Date End Date Jeffery Landa DO PCP - General Internal Medicine 12/06/23 documented as of this encounter"
--- OUTSIDE RECORDS SUMMARY | 2024-12-19 14:01 | XMS_ITS | Encounter Summary ---
Author Organization [facility] Address [address] [place] [address] Care Team Providers Care Stylist Assistant Name Role Phone Sis Hopper NP Primary Care Provider +1 -[phone] Encounter Details Date Type Department Care Team (Late st Contact Info) Description 06/01/2024 IIIMOBI Message Enc [facility] Family Medicine - [place] [address] [facility] [address] [place], [place] [address] Sis Hopper NP [address] [place], [place] [address] Psychiatrist Social History Tobacco Use Types Packs/Day [...] documented as of this encounter Care Teams Stylist Assistant Relationship Specialty Start Date End Date Sis Hopper NP [address] [place] [address] PCP - General NURSE PRACTITIONER 05/04/24 documented as of this encounter
--- OUTSIDE RECORDS SUMMARY | 2024-12-19 14:01 | XMS_ITS | Encounter Summary ---
Author Organization [facility] Address [address] [place] [address] Care Team Providers Care Livestock Trucker Name Role Phone Jeffery Landa Primary Care Provider +1- [phone] Encounter Details Date Type Department Care Team (Late st Contact Info) Description 12/24/2006 Orders Only [facility] Primary Care - [address] [place] [address] Sahil Voss MD NO ADDRESS ON FILE Social History Tobacco Use Types Packs/Day Years Used Date Smoking Tobacco: Never Assessed Comments Unknown Sex and Gender Information Value Date Recorded Sex Assigned at Not on file Legal Sex Female 3:35 AM GEOLOGY TECHNICIAN Gender Identity Not on file Sexual Orientation [...] on filedocumented in this encounter Care Teams Livestock Trucker Relationship Specialty Start Date End Date Jeffery Landa DO PCP - General Internal Medicine 12/06/23 documented as of this encounter
--- OUTSIDE RECORDS SUMMARY | 2024-12-19 14:01 | XMS_ITS | Encounter Summary ---
Author Organization [facility] Address [address] [place] [address] Care Team Providers Care Silk Soaker Name Role Phone Jeffery Landa DO Primary Care Provider +1- [phone] Encounter Details Date Type Department Care Team (Late st Contact Info) Description 07/01/2000 Outpatient Historical [facility] Primary Care - [address] [place] [address] Sahil Voss MD NO ADDRESS ON FILE Social History Tobacco Use Types Packs/Day Years Used Date Smoking Tobacco: Never Assessed Comments Unknown Sex and Gender Information Value Date Recorded Sex Assigned at Not on file Legal Sex Female 3:35 AM CLINICAL PROJECT MANAGER Gender Identity Not on file Sexual Orientation Not on file documented as of this encounter Plan of Treatment Not on file documented as of this encounter Visit Diagnoses Not on filedocumented in this encounter Care Teams Silk Soaker Relationship Specialty Start Date End Date Jeffery Landa DO PCP - General Internal Medicine 12/06/23 documented as of this encounter
--- OUTSIDE RECORDS SUMMARY | 2024-12-19 14:01 | XMS_ITS | Encounter Summary ---
Author Organization [facility] Address [address] [place] [address] Care Team Providers Care Route Salesman And Driver Name Role Phone Jeffery Landa DO Primary Care Provider +1- [phone] Encounter Details Date Type Department Care Team (Late st Contact Info) Description 05/03/2005 Outpatient Historical [facility] Primary Care - [address] [place] [address] Sahil Voss MD NO ADDRESS ON FILE Social History Tobacco Use Types Packs/Day Years Used Date Smoking Tobacco: Never Assessed Comments Unknown Sex and Gender Information Value Date Recorded Sex Assigned at Not on file Legal Sex Female 3:35 AM BELL MAKER Gender Identity Not on file Sexual Orientation [...] on filedocumented in this encounter Care Teams Route Salesman And Driver Relationship Specialty Start Date End Date Jeffery Landa DO PCP - General Internal Medicine 12/06/23 documented as of this encounter
--- OUTSIDE RECORDS SUMMARY | 2024-12-19 14:01 | XMS_ITS | Encounter Summary ---
Author Organization [facility] Address [address] [place] [address] Care Team Providers Care Analytics Lead Name Role Phone Jeffery Landa Primary Care Provider +1- [phone] Encounter Details Date Type Department Care Team (Late st Contact Info) Description 10/17/2005 Orders Only [facility] Primary Care - [address] [place] [address] Sahil Voss MD NO ADDRESS ON FILE Social History Tobacco Use Types Packs/Day Years Used Date Smoking Tobacco: Never Assessed Comments Unknown Sex and Gender Information Value Date Recorded Sex Assigned at Not on file Legal Sex Female 3:35 AM BROADBAND ENGINEER Gender Identity Not on file Sexual Orientation Not on file documented as of this encounter Progress Notes * Sahil Voss MD - 07/01/2008 12:48 PM CDT TIME:03:43 pm PATIENT`S HOME PHONE: PATIENT`S WORK PHONE: PATIENT`S INSURANCE: [facility] WHO TOOK THE CALL: Niki De La Rosa M GENERAL INFORMATION PATIENT STATUS: Established Patient. LAST VISIT: 07/10/05 PCP: marc. GABINO PHONE NUMBER: [phone] lmor with time. WHO CALLED: Patient called. [...] on filedocumented in this encounter Care Teams Analytics Lead Relationship Specialty Start Date End Date Jeffery Landa DO PCP - General Internal Medicine 12/06/23 documented as of this encounter
--- OUTSIDE RECORDS SUMMARY | 2024-12-19 14:01 | XMS_ITS | Encounter Summary ---
Author Organization [facility] Address [address] [place] [address] Care Team Providers Care Search Consultant Name Role Phone Jeffery Landa DO Primary Care Provider +1- [phone] Encounter Details Date Type Department Care Team (Late st Contact Info) Description 04/10/1999 Outpatient Historical [facility] DEPT [facility] [address] [facility] [address] [place] [address] Cervicalgia (Primary Dx) Social History Tobacco Use Types Packs/Day Years Used Date Smoking Tobacco: Never Assessed Comments Unknown Sex and Gender Information Value Date Recorded Sex Assigned at Not on file Legal Sex Female 3:35 AM MACHINE II ENGRAVER Gender Identity Not on file Sexual Orientation Not on file documented as of this encounter Plan of Treatment Not on file documented as of this encounter Visit Diagnoses Diagnosis Cervicalgia- Primary documented in this encounter Care Teams Search Consultant Relationship Specialty Start Date End Date Jeffery Landa DO PCP - General Internal Medicine 12/06/23 documented as of this encounter
--- OUTSIDE RECORDS SUMMARY | 2024-12-19 14:01 | XMS_ITS | Encounter Summary ---
Author Organization [facility] Address [address] [place] [address] Care Team Providers Care Application Packaging Specialist Name Role Phone Jeffery Landa DO Primary Care Provider +1- [phone] Encounter Details Date Type Department Care Team (Late st Contact Info) Description 07/21/2007 Outpatient Historical [facility] Primary Care - [address] [place] [address] Sahil Voss MD NO ADDRESS ON FILE Social History Tobacco Use Types Packs/Day Years Used Date Smoking Tobacco: Never Assessed Comments Unknown Sex and Gender Information Value Date Recorded Sex Assigned at Not on file Legal Sex Female 3:35 AM MANDARIN CHINESE TEACHER Gender Identity Not on file Sexual [...] on filedocumented in this encounter Care Teams Application Packaging Specialist Relationship Specialty Start Date End Date Jeffery Landa DO PCP - General Internal Medicine 12/06/23 documented as of this encounter
--- OUTSIDE RECORDS SUMMARY | 2024-12-19 14:01 | XMS_ITS | Encounter Summary ---
Author Organization [facility] Address [address] [place] [address] Care Team Providers Care Human Resources Benefits Assistant Name Role Phone Jeffery Landa DO Primary Care Provider +1- [phone] Encounter Details Date Type Department Care Team (Late st Contact Info) Description 03/17/2001 Outpatient Historical [facility] Primary Care - [address] [place] [address] Sahil Voss MD NO ADDRESS ON FILE Social History Tobacco Use Types Packs/Day Years Used Date Smoking Tobacco: Never Assessed Comments Unknown Sex and Gender Information Value Date Recorded Sex Assigned at Not on file Legal Sex Female 3:35 AM INVAS TECH Gender Identity Not on file Sexual Orientation Not on file documented as of this encounter Plan of Treatment Not on file documented as of this encounter Visit Diagnoses Not on filedocumented in this encounter Care Teams Human Resources Benefits Assistant Relationship Specialty Start Date End Date Jeffery Landa DO PCP - General Internal Medicine 12/06/23 documented as of this encounter
--- OUTSIDE RECORDS SUMMARY | 2024-12-19 14:01 | XMS_ITS | Encounter Summary ---
Author Organization [facility] Address [address] [place] [address] Care Team Providers Care Silk Blocker Name Role Phone Jeffery Landa Primary Care Provider +1- [phone] Encounter Details Date Type Department Care Team (Late st Contact Info) Description 06/03/2006 Orders Only [facility] Primary Care - [address] [place] [address] Sahil Voss MD NO ADDRESS ON FILE Social History Tobacco Use Types Packs/Day Years Used Date Smoking Tobacco: Never Assessed Comments Unknown Sex and Gender Information Value Date Recorded Sex Assigned at Not on file Legal Sex Female 3:35 AM VP PUBLIC RELATIONS Gender Identity Not on file Sexual Orientation Not on file documented as of this encounter Progress Notes * Sahil Voss MD - 07/06/2008 6:03 PM CDT TIME:09:12 am PATIENT`S HOME PHONE: PATIENT`S WORK PHONE: PATIENT`S INSURANCE: [facility] WHO TOOK THE CALL: Salas Ashton GENERAL INFORMATION PATIENT STATUS: Established Patient. LAST VISIT: 07-10-05 PCP: marc. ALTERNATIVE PHONE NUMBER: [phone] / [phone] WHO CALLED: Patient called. CURRENT ALLERGY LIST: [...] filedocumented in this encounter Care Teams Silk Blocker Relationship Specialty Start Date End Date Jeffery Landa DO PCP - General Internal Medicine 12/06/23 documented as of this encounter
--- OUTSIDE RECORDS SUMMARY | 2024-12-19 14:01 | XMS_ITS | Encounter Summary ---
Author Organization [facility] Address [address] [place] [address] Care Team Providers Care Rn Case Manager Hospice Name Role Phone Jeffery Landa DO Primary Care Provider +1- [phone] Encounter Details Date Type Department Care Team (Late st Contact Info) Description 06/05/2006 Outpatient [facility] Primary Care - [address] [place] [address] Sahil Voss MD NO ADDRESS ON FILE Social History Tobacco Use Types Packs/Day Years Used Date Smoking Tobacco: Never Assessed Comments Unknown Sex and Gender Information Value Date Recorded Sex Assigned at Not on file Legal Sex Female 3:35 AM SALESPERSON BOOKS Gender Identity Not on file Sexual Orientation [...] filedocumented in this encounter Care Teams Rn Case Manager Hospice Relationship Specialty Start Date End Date Jeffery Landa DO PCP - General Internal Medicine 12/06/23 documented as of this encounter
--- OUTSIDE RECORDS SUMMARY | 2024-12-19 14:01 | XMS_ITS | Encounter Summary ---
Author Organization [facility] Address [address] [place] [address] Care Team Providers Care Air Pollution Inspector Name Role Phone Jeffery Landa Primary Care Provider +1- [phone] Encounter Details Date Type Department Care Team (Late st Contact Info) Description 11/23/2008 [facility] [address] [place] [id number] Social History Tobacco Use Types Packs/Day Years Used Date Smoking Tobacco: Never Assessed Comments No Sex and Gender Information Value Date Recorded Sex Assigned at Not on file Legal Sex Female 3:35 AM NETWORK ARCHITECT MANAGER Gender Identity Not on file Sexual [...] HEMOGLOBIN AND HEMATOCRIT Routine 11/24/2008 9:21 AM NETWORK ARCHITECT MANAGER TYPE AND SCREEN Routine 11/24/2008 9:20 AM NETWORK ARCHITECT MANAGER documented in this encounter Results * (ABNORMAL) CBC WITH DIFFERENTIAL (11/30/2008 6:05 AM CDT) HEMOGLOBIN 11.8 11.8 - 14.8 g/dL [facility] RDW 12.8 11.5 - 14.5 % [facility] WBC 16.0(H) 4.0 - 9.8 K/uL [facility] MCH 32.0 27.2 - 32.6 pg [facility] MPV 11.5 9.3 - 12.4 fL [facility] HEMATOCRIT 36.0 35.5 - 44.0 % [facility] RDW-STDEV 45.6 37.1 - 48.7 fL [facility] RBC 3.69(L) 3.90 - 4.90 M/uL [facility] MCHC 32.8 31.5 - 35.5 % [facility] MCV 97.6 82.0 - 99.0 fL [facility] PLATELETS 230 140 - 350 K/uL [facility] LYMPHOCYTE ABSOLUTE 1.76 0.70 - 4.50 K/uL [facility] BANDS 1 0 - 5 % [facility] METAMYELOCYTE 3(H) <=0 % [facility] BASOPHILS ABSOLUTE 0.00 0.00 - 0.20 K/uL [facility] REVIEWED ON SMEAR Plt reviewed [facility] EOSINOPHILS 0 0 - 7 % [facility] MONOCYTE ABSOLUTE 0.32 0.10 - 1.30 K/uL [facility] PLATELET EST. Consistent w/ count Normal [facility] LYMPHOCYTES 11(L) 16 - 45 % [facility] NEUTROPHIL ABSOLUTE 13.44(H) 1.90 - 7.00 K/uL [facility] NEUTROPHILS, SEG 83(H) 45 - 70 % [facility] BASOPHILS 0 0 - 2 % [facility] EOSINOPHIL ABSOLUTE 0.00 0.00 - 0.70 K/uL [facility] MONOCYTES 2(L) 3 - 13 % [facility] RBC MORPHOLOGY Normal Normal [facility] Blood specimen (specimen) 11/30/2008 6:05 AM CDT 11/30/2008 6:19 AM CDT us Sanjay Cardona MD HEMATOLOGY ORDERABLES Edited INTERFACE SYSTEM Refer to clinic/hospital department [facility] CLIA# [id number] [address] [place] [address] * PATHOLOGY (11/29/2008 5:00 PM CDT) FINAL REPORT [address] [address] Patient: COLEEN REARDON : 1960 Procedure Date: 11/29/2008 Accession Date: 11/30/2008 Case No: [id number] Ordering Dr: SANJAY CARDONA Case types AW, BW, FW, NW and SH are performed by [place], [place] SURGICAL PATHOLOGY & NON-GYNECOLOGIC CYTOPATHOLOGY REPORT [...] ovary and tube; A6-smaller ovary and tube. [facility] 11.30.2008 12:04 pm Microscopic: The slides are labeled [id number], Coleen Malcolmsalvador. The ectocervical mucosa is parakeratotic. No endocervical glandular atypia is seen. The endometrium has a proliferative pattern. The myometrium contains a small, well-circumscribed leiomyoma composed of interlacing fascicles of cytologically bland, smooth muscle cells without significant mitotic activity. One of the ovaries contains a corpus luteum and several cystic follicles. The other ovary and fallopian tubes are unremarkable. [facility] 12.01.2008 02:36 pm Staging Form: No. ELECTRONIC SIGNATURE FOR NINO GAMINO M.D.- 12/01/08 03:11 pm INTERFACE SYSTEM 11/29/2008 5:00 PM CDT us Sanjay Cardona MD PATHOLOGY/CYTOLOGY ORDERABLE S Final Result INTERFACE SYSTEM Refer to clinic/hospital department * POC , URINE (11/29/2008 11:15 AM CDT) , URINE POC Negative Negative [facility] Urine specimen (specimen) 11/29/2008 11:15 AM CDT 11/29/2008 11:15 AM CDT Sanjay Cardona MD POINT OF CARE TESTING Final Result Performing Organization Address [facility] de Phone Number INTERFACE SYSTEM Refer to clinic/hospital department [facility] CLIA# [id number] [address] [place] [address] * (ABNORMAL) HEMOGLOBIN AND HEMATOCRIT (11/24/2008 9:21 AM NETWORK ARCHITECT MANAGER) HEMATOCRIT 44.2(H) 35.5 - 44.0 % [facility] HEMOGLOBIN 14.5 11.8 - 14.8 g/dL [facility] Blood specimen (specimen) 11/24/2008 9:21 AM NETWORK ARCHITECT MANAGER 11/24/2008 9:50 AM NETWORK ARCHITECT MANAGER Sanjay Cardona MD HEMATOLOGY ORDERABLES Final Result Performing Organization Address [facility] Phone Number INTERFACE SYSTEM Refer to clinic/hospital department [facility] CLIA# [id number] [address] [place] [address] * TYPE AND SCREEN (11/24/2008 9:20 AM NETWORK ARCHITECT MANAGER) HISTORY CHECK No Historical ABO/Rh [facility] SPECIMEN LIFE 3 days from OR date [facility] ABO/RH TYPE A Positive [facility] ANTIBODY SCREEN Negative [facility] Blood specimen (specimen) 11/24/2008 9:20 AM NETWORK ARCHITECT MANAGER us Sanjay Cardona MD BLOOD BANK ORDERABLES Edited INTERFACE SYSTEM Refer to clinic/hospital department [facility] CLIA# [id number] [address] [place] [address] documented in this encounter Visit Diagnoses Not on filedocumented in this encounter Care Teams Air Pollution Inspector Relationship Specialty Start Date End Date Jeffery Landa DO PCP - General Internal Medicine 12/06/23 documented as of this encounter
--- OUTSIDE RECORDS SUMMARY | 2024-12-19 14:01 | XMS_ITS | Encounter Summary ---
Author Organization [facility] Address 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 LAST VISIT: 07-10-05 PCP: marc. ALTERNATIVE PHONE NUMBER: [phone] WHO CALLED: Patient called. CURRENT ALLERGY LIST: [...] 09:42 am. / Yulissa Electronically Signed by: Yulissa Dietrich on Saturday, January 28, 2006 documented in this encounter Plan of Treatment Not on file documented as of this encounter Visit Diagnoses Not on filedocumented in this encounter Care Teams Line Inspector Relationship Specialty Start Date End Date Jeffery Landa DO PCP - General Internal Medicine 12/06/23 documented as of this encounter
--- OUTSIDE RECORDS SUMMARY | 2024-12-19 14:01 | XMS_ITS | Encounter Summary ---
Author Organization [facility] Address [address] [place] [address] Care Team Providers Care Compressor Station Engineer Chief Name Role Phone Jeffery Landa DO Primary Care Provider +1- [phone] Encounter Details Date Type Department Care Team (Late st Contact Info) Description 10/01/2006 Orders Only [facility] Primary Care - [address] [place] [address] Sahil Voss MD NO ADDRESS ON FILE Social History Tobacco Use Types Packs/Day Years Used Date Smoking Tobacco: Never Assessed Comments Unknown Sex and Gender Information Value Date Recorded Sex Assigned at Not on file Legal Sex Female 3:35 AM BELT FIXER Gender Identity Not on file Sexual Orientation Not on file documented as of this encounter Plan of Treatment Not on file documented as of this encounter Visit Diagnoses Not on filedocumented in this encounter Care Teams Compressor Station Engineer Chief Relationship Specialty Start Date End Date Jeffery Landa DO PCP - General Internal Medicine 12/06/23 documented as of this encounter
--- OUTSIDE RECORDS SUMMARY | 2024-12-19 14:01 | XMS_ITS | Patient Health Record ---
Author Organization [facility] Address [address] [place] [address] Care Team Providers Care Nutrition Internship Name Role Phone Sis Hopper APN Primary Care Provider Rachel Forrester Unavailable [phone] Allergies Allergen (clinical drug ingredient) Drug/Non Drug Allergy documented on EMR Reaction Allergy Type Onset Date Status azithromycin Azithromycin Unknown Drug Allergy A ctive morphine Morphine Unknown Drug Allergy Active prednisone Prednisone Unknown Drug Allergy Activ e Reason For Referral No Information Social History Sex Assigned At : Social History Observation Description Sex Assigned At Female Encounters Encounter Location Date Provider Diagnosis [facility] [address] [place] [address] 06/02/2024 Rachel Orozco Plan Of Treatment No Information Insurance Providers Payer Name Payer Address Payer Phone Subscriber Number Group Number Insured Name Patient Relationship to Insured Coverage Start Date Coverage End Date [employer] [address] [place] [address] [id number] Alexys Coleen Self - patient is the insured Medical (General) History Medical History History ICD Code Mixed HLD
--- OUTSIDE RECORDS SUMMARY | 2024-12-19 14:01 | XMS_ITS | Encounter Summary ---
Author Organization [facility] Address [address] [place] [address] Care Team Providers Care Heel Molder Name Role Phone Jeffery Landa DO Primary Care Provider +1- [phone] Encounter Details Date Type Department Care Team (Late st Contact Info) Description 12/28/2003 Outpatient Historical [facility] Primary Care - [address] [place] [address] Sahil Voss MD NO ADDRESS ON FILE Social History Tobacco Use Types Packs/Day Years Used Date Smoking Tobacco: Never Assessed Comments Unknown Sex and Gender Information Value Date Recorded Sex Assigned at Not on file Legal Sex Female 3:35 AM CHIEF PHARMACIST Gender Identity Not on file Sexual Orientation Not on file documented as of this encounter Plan of Treatment Not on file documented as of this encounter Visit Diagnoses Not on filedocumented in this encounter Care Teams Heel Molder Relationship Specialty Start Date End Date Jeffery Landa DO PCP - General Internal Medicine 12/06/23 documented as of this encounter
--- OUTSIDE RECORDS SUMMARY | 2024-12-19 14:01 | XMS_ITS | Encounter Summary ---
Author Organization [facility] Address [address] [place] [address] Care Team Providers Care Non Emergency Services Ambulance Driver Name Role Phone Jeffery Landa DO Primary Care Provider +1- [phone] Encounter Details Date Type Department Care Team (Late st Contact Info) Description 02/01/[address] [facility] Primary Care - [address] [place] [address] Sanjay Canchola MD [address] [place] [address] Social History Tobacco Use Types Packs/Day Years Used Date Smoking Tobacco: Never Assessed Comments Unknown Sex and Gender Information Value Date Recorded Sex Assigned at Not on file Legal Sex Female 3:35 AM WINDOW TINTER Gender Identity Not on file Sexual Orientation Not on file documented as of this encounter Plan of Treatment Not on file documented as of this encounter Visit Diagnoses Not on filedocumented in this encounter Care Teams Non Emergency Services Ambulance Driver Relationship Specialty Start Date End Date Jeffery Landa DO PCP - General Internal Medicine 12/06/23 documented as of this encounter
--- OUTSIDE RECORDS SUMMARY | 2024-12-19 14:01 | XMS_ITS | Encounter Summary ---
Author Organization [facility] Address 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
--- OUTSIDE RECORDS SUMMARY | 2024-12-19 14:01 | XMS_ITS | Encounter Summary ---
Author Organization [facility] Address [address] [place] [address] Care Team Providers Care Parking Inspector Name Role Phone Jeffery Landa DO Primary Care Provider +1- [phone] Encounter Details Date Type Department Care Team (Late st Contact Info) Description 09/02/2002 Outpatient Historical [facility] Primary Care - [address] [place] [address] Sahil Voss MD NO ADDRESS ON FILE Social History Tobacco Use Types Packs/Day Years Used Date Smoking Tobacco: Never Assessed Comments Unknown Sex and Gender Information Value Date Recorded Sex Assigned at Not on file Legal Sex Female 3:35 AM GREEN ENERGY MARKETING 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
--- OUTSIDE RECORDS SUMMARY | 2024-12-19 14:01 | XMS_ITS | Encounter Summary ---
Author Organization [facility] Address [address] [place] [address] Care Team Providers Care Retail Shift Leader Name Role Phone Jeffery Landa Primary Care Provider +1- [phone] Encounter Details Date Type Department Care Team (Late st Contact Info) Description 09/05/2007 Orders Only [facility] Primary Care - [address] [place] [address] Sahil Voss MD NO ADDRESS ON FILE Social History Tobacco Use Types Packs/Day Years Used Date Smoking Tobacco: Never Assessed Comments Unknown Sex and Gender Information Value Date Recorded Sex Assigned at Not on file Legal Sex Female 3:35 AM HORSE BREAKER Gender Identity Not on file Sexual Orientation Not on file documented as of this encounter Progress Notes * Sahil Voss MD - 02/05/2008 11:26 AM CDT TIME:10:42 am PATIENT`S HOME PHONE: PATIENT`S WORK PHONE: PATIENT`S INSURANCE: [facility] WHO TOOK THE CALL: Emmy León N GENERAL INFORMATION PATIENT STATUS: LAST VISIT: 06/2007 PCP: pc. [facility] PHONE NUMBER: [phone] or [phone] WHO CALLED: Patient called. CURRENT ALLERGY LIST: [...] on filedocumented in this encounter Care Teams Retail Shift Leader Relationship Specialty Start Date End Date Jeffery Landa DO PCP - General Internal Medicine 12/06/23 documented as of this encounter
--- OUTSIDE RECORDS SUMMARY | 2024-12-19 14:57 | XMS_ITS | Encounter Summary ---
Author Organization [facility] Address [address] [place] [address] Care Team Providers Care Wic Site Coordinator Name Role Phone Jeffery Landa DO Primary Care Provider +1- [phone] Encounter Details Date Type Department Care Team (Late st Contact Info) Description 02/06/2008 Orders Only [facility] Primary Care - [address] [place] [address] Sahil Voss MD NO ADDRESS ON FILE Social History Tobacco Use Types Packs/Day Years Used Date Smoking Tobacco: Never Assessed Comments Unknown Sex and Gender Information Value Date Recorded Sex Assigned at Not on file Legal Sex Female 3:35 AM ADVERTISING CLERK Gender Identity Not on file Sexual Orientation Not on file documented as of this encounter Plan of Treatment Not on file documented as of this encounter Visit Diagnoses Not on filedocumented in this encounter Care Teams Wic Site Coordinator Relationship Specialty Start Date End Date Jeffery Landa DO PCP - General Internal Medicine 12/06/23 documented as of this encounter
--- OUTSIDE RECORDS SUMMARY | 2024-12-19 14:57 | XMS_ITS | Clinical Summary ---
Author Organization [facility] Address [address] [place] [address] Phone Care Team Providers Care Roaster Supervisor Name Role Phone Jeffery Landa Primary Care Provider +1- [phone] Allergies Active Allergy Reactions Criticality Noted Date [...] Voss MD Referring Provider: Sanjay Cardona MD [address] [place] [address] Other: Problem Noted Date Diagnosed Date History [...] PNEUM OCOCCAL CONJUGATE VACCINE 20-VALENT (PCV20), POLYSACCHARIDE [id number] CONJUGATE, ADJUVANT 0.5 ML (PF) IM 12/05/2022 [...] on file Legal Sex Female 3:35 AM CIRCULATION TENDER Gender Identity Not on file Sexual Orientation [...] PM CDT) COLOGUARD RESULT Negative Negative [facility] Comment: NEGATIVE TEST RESULT. A negative [...] (Liset Marin al, N Engl J Med 2014;370(14):5616-4803) The normal value (reference range) for this assay is negative. COLOGUARD RE-SCREENING RECOMMENDATION: Periodic colorectal cancer screening is an important part of preventive healthcare for asymptomatic individuals at average risk for colorectal cancer. Following a negative Cologuard result, the [place] Cancer Society and U.S. Multi-Society Task Force screening guidelines recommend a Cologuard re-screening interval of 3 years. References: [place] Cancer Society Guideline for Colorectal Cancer Screening: https://www.cancer.org/cancer/icmtk-pedbqu-jzyieq/xljuqatww-ynseovmqh-npgjcwn/ac s-rec ommendations.html.; Carrington DK, Nathan CR, Wes BruceK, Colorectal Cancer Screening: Recommendations for Physicians and Patients from the U.S. Multi-Society Task Force on Colorectal Cancer Screening , Am J Gastroenterology 2017; 112:6731-1206. TEST DESCRIPTION: Composite algorithmic analysis of stool [...] (Liset Marin al, N Engl J Med 2014;370(14):2086-7137.) Cologuard may produce a false negative or false positive result (no colorectal cancer or precancerous polyp present at colonoscopy follow up). A negative Cologuard test result does not guarantee the absence of CRC or advanced adenoma (pre-cancer). The current Cologuard screening interval is every 3 years. ([place] Cancer Society and U.S. Multi-Society Task Force). Cologuard performance data in a 10,000 patient pivotal study using colonoscopy as the reference method can be accessed at the following location: www.CorMatrix.Preview Networks/results. Additional description of the Cologuard test process, warnings and precautions can be found at www.Zjdg.cnrd.com. Stool STOOL SPECIMEN / Unknown 12/24/2023 1:00 PM CDT 12/25/2023 3:01 PM CDT Jeffery Rodriguez Jeancarlosanay DO BODY FLUIDS AND STOOLS Fin al Result [employer] [place] [facility] # [id number] [address], [address] [place] [address] * HEMOGLOBIN A1C (12/09/2023 11:07 AM CDT) HEMOGLOBIN A1C 5.6 <5.7 % of total Hgb [facility] Comment: For the purpose of screening for the presence of diabetes: <5.7% Consistent with the absence of diabetes 5.7-6.4% Consistent with increased risk for diabetes (prediabetes) > or =6.5% Consistent with diabetes This assay result is consistent with a decreased risk of diabetes. Currently, no consensus exists regarding use of hemoglobin A1c for diagnosis of diabetes in children. According to [place] Diabetes Association (ADA) guidelines, hemoglobin A1c <7.0% represents optimal control in non- diabetic patients. Different metrics may apply to specific patient populations. Standards of Medical Care in Diabetes(ADA). ESTIMATED AVERAGE GLUCOSE (MG/DL) 114 mg/dL [facility] ESTIMATED AVERAGE GLUCOSE (MMOL/L) 6.3 mmol/L [facility] Comment: This test was performed on the Caron joão c503 platform. Effective 12/09/23, a change in test platforms from the Soliz Office Equipment Technician to the Caron joão c503 may have shifted HbA1c results compared to historical results. Based on laboratory validation testing conducted at [facility], the Caron platform relative to the Soliz [...] recommended. FASTING:YES FASTING: YES Test Performed at: [facility] [address] [place] [address] Chris Thi Vo Blood 12/09/2023 11:0 7 AM CDT 12/09/2023 11:07 AM CDT Jeffery Landa DO CHEMISTRY ORDERABLES Final Result [facility] [phone] [facility] [address] [place] [address] * CT LUNG SCREENING (LDCT BASELINE OR ANNUAL) (12/24/2022 1:42 PM CDT) Anatomical Region Laterality Modality Chest Computed Tomogra phy 12/24/2022 1:35 PM CDT Impressions 12/25/2022 11:46 AM CDT IMPRESSION: 1. Lung RADS category 2, benign. RECOMMENDATION: 1. Continue annual screening with low dose CT in 12 months. DICTATION LOCATION: [address] Narrative 12/25/2022 11:[address] [...] CT in 12 months. DICTATION LOCATION: Location [address] [place] [address]. Natalie Moore ADMIN ASSISTANT CT ORDERABLES Final Resul t * MAMMO DIAGNOSTIC BILATERAL W OR WO CAD (10/08/2022) Anatomical Region Laterality Modality Breast Bilateral Mammography us Abstract Provider MAMMO ORDERABLES Edited Result - Final from Last 3 Months or Most Recently Relevant to Health Maintenance Insurance Advance Directives For more information, please contact: [phone] * Full Code (Latest Code Status on File) Date Activated Date Inactivated Comments 08/12/2015 8:42 AM 08/12/2015 12:34 PM * Full Code Date Activated Date Inactivated Comments 07/07/2012 11:02 AM 07/07/2012 4:47 PM * Full Code Date Activated Date Inactivated Comments 07/07/2012 9:47 AM 07/07/2012 11:02 AM * Full Code Date Activated Date Inactivated Comments 07/07/2012 9:06 AM 07/07/2012 9:47 AM Care Teams Roaster Supervisor Relationship Specialty Start Date End Date Jeffery Landa DO PCP - General Internal Medicine 12/06/23
--- OUTSIDE RECORDS SUMMARY | 2024-12-19 14:57 | XMS_ITS | Encounter Summary ---
Author Organization [facility] Address [address] [place] [address] Care Team Providers Care Hospital Clinic Assistant Name Role Phone Jeffery Landa DO Primary Care Provider +1- [phone] Encounter Details Date Type Department Care Team (Late st Contact Info) Description 02/06/[address] [facility] Primary Care - [address] [place] [address] Sahil Voss MD NO ADDRESS ON FILE Social History Tobacco Use Types Packs/Day Years Used Date Smoking Tobacco: Never Assessed Comments Unknown Sex and Gender Information Value Date Recorded Sex Assigned at Not on file Legal Sex Female 3:35 AM INSURANCE ADVISOR Gender Identity Not on file Sexual Orientation Not on file documented as of this encounter Plan of Treatment Not on file documented as of this encounter Visit Diagnoses Not on filedocumented in this encounter Care Teams Hospital Clinic Assistant Relationship Specialty Start Date End Date Jeffery Landa DO PCP - General Internal Medicine 12/06/23 documented as of this encounter
--- OUTSIDE RECORDS SUMMARY | 2024-12-19 14:57 | XMS_ITS | Encounter Summary ---
Author Organization [facility] Address 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
--- OUTSIDE RECORDS SUMMARY | 2024-12-19 14:57 | XMS_ITS | Encounter Summary ---
Author Organization [facility] Address 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
--- NOTE | 2024-12-19 14:58 | ECG_ITS ---
Test Date: 2024-12-19 15:10:11 Measurements Intervals [place] Rate: 69 P: 48 TN: 151 QRS: 0 QRSD: 86 T: 13 QT: 402 QTc: 432 Interpretive Statements SINUS RHYTHM POSSIBLE RIGHT VENTRICULAR CONDUCTION DELAY [RSR (QR) IN V1/V2] BORDERLINE ECG No previous ECG available for comparison Electronically Signed On 12-19-2024 15:44:45 CDT by Panchito Jose M.D.
--- OUTSIDE RECORDS SUMMARY | 2024-12-19 14:58 | XMS_ITS | Encounter Summary ---
Author Organization [facility] Address [address] [place] [address] Care Team Providers Care Actuary Clerk Name Role Phone Jeffery Landa Primary Care Provider +1- [phone] Encounter Details Date Type Department Care Team (Late st Contact Info) Description 09/17/[address] [facility] Primary Care - [address] [place] [address] Sahil Voss MD NO ADDRESS ON FILE Social History Tobacco Use Types Packs/Day Years Used Date Smoking Tobacco: Never Assessed Comments Unknown Sex and Gender Information Value Date Recorded Sex Assigned at Not on file Legal Sex Female 3:35 AM MUTUEL DEPARTMENT MANAGER Gender Identity Not on file Sexual Orientation Not on file documented as of this encounter Progress Notes * Sahil Voss MD - 07/07/2008 4:56 AM CDT TIME:11:31 am PATIENT`S HOME PHONE: PATIENT`S WORK PHONE: PATIENT`S INSURANCE: [facility] WHO TOOK THE CALL: Esther Trent A GENERAL INFORMATION PATIENT STATUS: Established Patient. LAST VISIT: 08-29-06 PCP: marc. ALTERNATIVE PHONE NUMBER: [phone] WHO CALLED: Patient called. CURRENT ALLERGY LIST: NO KNOWN ALLERGIES PHARMACY NUMBER: [phone] PROBLEMS: per pt sinus infection/congestion with yellow mucus started [place], pt denies all other symptoms, pt [...] on filedocumented in this encounter Care Teams Actuary Clerk Relationship Specialty Start Date End Date Jeffery Landa DO PCP - General Internal Medicine 12/06/23 documented as of this encounter
--- OUTSIDE RECORDS SUMMARY | 2024-12-19 14:58 | XMS_ITS | Encounter Summary ---
Author Organization [facility] Address [address] [place] [address] Care Team Providers Care Java Portal Developer Name Role Phone Jeffery Landa DO Primary Care Provider +1- [phone] Encounter Details Date Type Department Care Team (Late st Contact Info) Description 03/28/1999 Outpatient Historical [facility] Primary Care - [address] [place] [address] Shail Voss MD NO ADDRESS ON FILE Social History Tobacco Use Types Packs/Day Years Used Date Smoking Tobacco: Never Assessed Comments Unknown Sex and Gender Information Value Date Recorded Sex Assigned at Not on file Legal Sex Female 3:35 AM SWITCHBOARD OPERATOR RECEPTIONIST Gender Identity Not on file Sexual Orientation Not on file documented as of this encounter Plan of Treatment Not on file documented as of this encounter Visit Diagnoses Not on filedocumented in this encounter Care Teams Java Portal Developer Relationship Specialty Start Date End Date Jeffery Landa DO PCP - General Internal Medicine 12/06/23 documented as of this encounter
--- OUTSIDE RECORDS SUMMARY | 2024-12-19 14:58 | XMS_ITS | Encounter Summary ---
Author Organization [facility] Address [address] [place] [address] Care Team Providers Care Antique Refinisher Name Role Phone Jeffery Landa DO Primary Care Provider +1- [phone] Encounter Details Date Type Department Care Team (Late st Contact Info) Description 09/02/2002 Outpatient Historical [facility] Primary Care - [address] [place] [address] Sahil Voss MD NO ADDRESS ON FILE Social History Tobacco Use Types Packs/Day Years Used Date Smoking Tobacco: Never Assessed Comments Unknown Sex and Gender Information Value Date Recorded Sex Assigned at Not on file Legal Sex Female 3:35 AM CASH SPECIALIST Gender Identity Not on file Sexual Orientation Not on file documented as of this encounter Plan of Treatment Not on file documented as of this encounter Visit Diagnoses Not on filedocumented in this encounter Care Teams Antique Refinisher Relationship Specialty Start Date End Date Jeffery Landa DO PCP - General Internal Medicine 12/06/23 documented as of this encounter
--- OUTSIDE RECORDS SUMMARY | 2024-12-19 14:58 | XMS_ITS | Encounter Summary ---
Author Organization [facility] Address [address] [place] [address] Care Team Providers Care Core Winder Machine Operator Name Role Phone Jeffery Landa Primary Care Provider +1- [phone] Encounter Details Date Type Department Care Team (Late st Contact Info) Description 06/05/2006 Orders Only [facility] Primary Care - [address] [place] [address] Sahil Voss MD NO ADDRESS ON FILE Social History Tobacco Use Types Packs/Day Years Used Date Smoking Tobacco: Never Assessed Comments Unknown Sex and Gender Information Value Date Recorded Sex Assigned at Not on file Legal Sex Female 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
--- OUTSIDE RECORDS SUMMARY | 2024-12-19 14:58 | XMS_ITS | Encounter Summary ---
Author Organization [facility] Address [address] [place] [address] Care Team Providers Care Victorian Literature Professor Name Role Phone Jeffery Landa DO Primary Care Provider +1- [phone] Encounter Details Date Type Department Care Team (Late st Contact Info) Description 03/17/2001 Outpatient Historical [facility] Primary Care - [address] [place] [address] Sahil Voss MD NO ADDRESS ON FILE Social History Tobacco Use Types Packs/Day Years Used Date Smoking Tobacco: Never Assessed Comments Unknown Sex and Gender Information Value Date Recorded Sex Assigned at Not on file Legal Sex Female 3:35 AM COMMERCIAL STRIPPER Gender Identity Not on file Sexual Orientation Not on file documented as of this encounter Plan of Treatment Not on file documented as of this encounter Visit Diagnoses Not on filedocumented in this encounter Care Teams Victorian Literature Professor Relationship Specialty Start Date End Date Jeffery Landa DO PCP - General Internal Medicine 12/06/23 documented as of this encounter
--- OUTSIDE RECORDS SUMMARY | 2024-12-19 14:58 | XMS_ITS | Encounter Summary ---
Author Organization [facility] Address 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
--- OUTSIDE RECORDS SUMMARY | 2024-12-19 14:58 | XMS_ITS | Encounter Summary ---
Author Organization [facility] Address [address] [place] [address] Care Team Providers Care Bb Shot Packer Name Role Phone Jeffery Landa DO Primary Care Provider +1- [phone] Encounter Details Date Type Department Care Team (Late st Contact Info) Description 07/10/2005 Outpatient Historical [facility] Primary Care - [address] [place] [address] Sahil Voss MD NO ADDRESS ON FILE Social History Tobacco Use Types Packs/Day Years Used Date Smoking Tobacco: Never Assessed Comments Unknown Sex and Gender Information Value Date Recorded Sex Assigned at Not on file Legal Sex Female 3:35 AM CLAIM AUDITOR Gender Identity Not on file Sexual Orientation [...] on filedocumented in this encounter Care Teams Bb Shot Packer Relationship Specialty Start Date End Date Jeffery Landa DO PCP - General Internal Medicine 12/06/23 documented as of this encounter
--- OUTSIDE RECORDS SUMMARY | 2024-12-19 14:58 | XMS_ITS | Encounter Summary ---
Author Organization [facility] Address [address] [place] [address] Care Team Providers Care Computer Operations Technician Name Role Phone Jeffery Landa DO Primary Care Provider +1- [phone] Encounter Details Date Type Department Care Team (Late st Contact Info) Description 02/01/2003 Outpatient Historical [facility] Primary Care - [address] [place] [address] Sanjay Canchola MD [address] [facility] [address] [place] [address] Social History Tobacco Use Types Packs/Day Years Used Date Smoking Tobacco: Never Assessed Comments Unknown Sex and Gender Information Value Date Recorded Sex Assigned at Not on file Legal Sex Female 3:35 AM 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
--- OUTSIDE RECORDS SUMMARY | 2024-12-19 14:58 | XMS_ITS | Encounter Summary ---
Author Organization [facility] Address [address] [place] [address] Care Team Providers Care Heavy Forging Machine Operator Name Role Phone Jeffery Landa Primary Care Provider +1- [phone] Encounter Details Date Type Department Care Team (Late st Contact Info) Description 10/17/2005 Orders Only [facility] Primary Care - [address] [place] [address] Sahil Voss MD NO ADDRESS ON FILE Social History Tobacco Use Types Packs/Day Years Used Date Smoking Tobacco: Never Assessed Comments Unknown Sex and Gender Information Value Date Recorded Sex Assigned at Not on file Legal Sex Female 3:35 AM OPTIMIZATION ENGINEER Gender Identity Not on file Sexual Orientation Not on file documented as of this encounter Progress Notes * Sahil Voss MD - 07/01/2008 12:48 PM CDT TIME:03:43 pm PATIENT`S HOME PHONE: PATIENT`S WORK PHONE: PATIENT`S INSURANCE: [facility] WHO TOOK THE CALL: Niki De La Rosa M GENERAL INFORMATION PATIENT STATUS: Established Patient. LAST VISIT: 07/10/05 PCP: marc. GABINO PHONE NUMBER: [phone] lmor with time. WHO CALLED: Patient called. [...] on filedocumented in this encounter Care Teams Heavy Forging Machine Operator Relationship Specialty Start Date End Date Jeffery Landa DO PCP - General Internal Medicine 12/06/23 documented as of this encounter
--- OUTSIDE RECORDS SUMMARY | 2024-12-19 14:58 | XMS_ITS | Encounter Summary ---
Author Organization [facility] Address [address] [place] [address] Care Team Providers Care Photo Colorer Name Role Phone Sis Hopper NP Primary Care Provider +1 -[phone] Encounter Details Date Type Department Care Team (Late st Contact Info) Description 06/01/2024 Spot Coffee Message Enc [facility] Family Medicine - [place] [address] [facility] [address] [place], [place] [address] Sis Hopper NP [address] [place], [place] [address] Psychiatrist Social History Tobacco Use Types Packs/Day [...] documented as of this encounter Care Teams Photo Colorer Relationship Specialty Start Date End Date Sis Hopper NP [address] [place] [address] PCP - General NURSE PRACTITIONER 05/04/24 documented as of this encounter
--- OUTSIDE RECORDS SUMMARY | 2024-12-19 14:58 | XMS_ITS | Encounter Summary ---
Author Organization [facility] Address [address] [place] [address] Care Team Providers Care Tooling Manager Name Role Phone Jeffery Landa DO Primary Care Provider +1- [phone] Encounter Details Date Type Department Care Team (Late st Contact Info) Description 02/06/2008 Outpatient Historical [facility] Primary Care - [address] [place] [address] Sahil Voss MD NO ADDRESS ON FILE Social History Tobacco Use Types Packs/Day Years Used Date Smoking Tobacco: Never Assessed Comments Unknown Sex and Gender Information Value Date Recorded Sex Assigned at Not on file Legal Sex Female 3:35 AM SAT TUTOR Gender Identity Not on file Sexual Orientation Not on file documented as of this encounter Plan of Treatment Not on file documented as of this encounter Visit Diagnoses Not on filedocumented in this encounter Care Teams Tooling Manager Relationship Specialty Start Date End Date Jeffery Landa DO PCP - General Internal Medicine 12/06/23 documented as of this encounter
--- OUTSIDE RECORDS SUMMARY | 2024-12-19 14:58 | XMS_ITS | Encounter Summary ---
Author Organization [facility] Address [address] [place] [address] Care Team Providers Care Gear Changer Name Role Phone Jeffery Landa DO Primary Care Provider +1- [phone] Encounter Details Date Type Department Care Team (Late st Contact Info) Description 08/20/2001 Outpatient Historical [facility] Primary Care - [address] [place] [address] Sahil Voss MD NO ADDRESS ON FILE Social History Tobacco Use Types Packs/Day Years Used Date Smoking Tobacco: Never Assessed Comments Unknown Sex and Gender Information Value Date Recorded Sex Assigned at Not on file Legal Sex Female 3:35 AM MOVING WORKER Gender Identity Not on file Sexual Orientation Not on file documented as of this encounter Plan of Treatment Not on file documented as of this encounter Visit Diagnoses Not on filedocumented in this encounter Care Teams Gear Changer Relationship Specialty Start Date End Date Jeffery Landa DO PCP - General Internal Medicine 12/06/23 documented as of this encounter
--- OUTSIDE RECORDS SUMMARY | 2024-12-19 14:58 | XMS_ITS | Encounter Summary ---
Author Organization [facility] Address [address] [place] [address] Care Team Providers Care Network Support Name Role Phone Jeffery Landa Primary Care Provider +1- [phone] Encounter Details Date Type Department Care Team (Late st Contact Info) Description 07/21/2007 Orders Only [facility] Primary Care - [address] [place] [address] Sahil Voss MD NO ADDRESS ON FILE Social History Tobacco Use Types Packs/Day Years Used Date Smoking Tobacco: Never Assessed Comments Unknown Sex and Gender Information Value Date Recorded Sex Assigned at Not on file Legal Sex Female 3:35 AM CODING ANALYST Gender Identity Not on file Sexual Orientation Not on file documented as of this encounter Progress Notes * Sahil Voss MD - 02/06/2008 2:14 PM CDT TEMPERATURE: 97.5??f Oral WEIGHT: [id number] BLOOD PRESSURE: 100/70 Right Arm Sitting NURSE [...] on filedocumented in this encounter Care Teams Network Support Relationship Specialty Start Date End Date Jeffery Landa DO PCP - General Internal Medicine 12/06/23 documented as of this encounter
--- OUTSIDE RECORDS SUMMARY | 2024-12-19 14:58 | XMS_ITS | Encounter Summary ---
Author Organization [facility] Address [address] [place] [address] Care Team Providers Care Rewards Consultant Name Role Phone Sis Hopper NP Primary Care Provider +1 -[phone] Encounter Details Date Type Department Care Team (Late st Contact Info) Description 06/08/2024 Freeze Tag Message Enc [facility] Family Medicine - [place] [address] [facility] [address] [place], [place] [address] Sis Hopper NP [address] [place], [place] [address] bone density Social History Tobacco Use Types [...] documented as of this encounter Care Teams Rewards Consultant Relationship Specialty Start Date End Date Sis Hopper NP [address] [place] [address] PCP - General NURSE PRACTITIONER 05/04/24 documented as of this encounter
--- OUTSIDE RECORDS SUMMARY | 2024-12-19 14:58 | XMS_ITS | Encounter Summary ---
Author Organization [facility] Address [address] [place] [address] Care Team Providers Care Crime Specialist Name Role Phone Jeffery Landa DO Primary Care Provider +1- [phone] Encounter Details Date Type Department Care Team (Late st Contact Info) Description 09/03/2000 Outpatient Historical [facility] Primary Care - [address] [place] [address] Sahil Voss MD NO ADDRESS ON FILE Social History Tobacco Use Types Packs/Day Years Used Date Smoking Tobacco: Never Assessed Comments Unknown Sex and Gender Information Value Date Recorded Sex Assigned at Not on file Legal Sex Female 3:35 AM CLINICAL APPLICATIONS SPECIALIST Gender Identity Not on file Sexual Orientation Not on file documented as of this encounter Plan of Treatment Not on file documented as of this encounter Visit Diagnoses Not on filedocumented in this encounter Care Teams Crime Specialist Relationship Specialty Start Date End Date Jeffery Landa DO PCP - General Internal Medicine 12/06/23 documented as of this encounter
--- OUTSIDE RECORDS SUMMARY | 2024-12-19 14:58 | XMS_ITS | Clinical Summary ---
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 Is not ready to Quit. [...] Type Department Care Team Description 11/09/2024 Telephone [facility] Family Medicine - [place] [address] [facility] [address] [place] [address] Sis Hopper NP Cough; Medication Request 11/06/2024 [...] Adult (#1) 2024 07/24/2019, 07/22/2014 PHQ-2 (Physician [place]) 09/23/2024 06/01/2024 Annual Physical 05/04/2025 05/04/2024 Lung [...] 4:17 PM Narrative 06/11/2024 4:22 PM CDT [place] [address] EXAM: LUNG SCREENING LOW-DOSE CT THORAX WITHOUT [...] Procedure Note Hector Ashton MD - 06/11/[address] [address] EXAM: LUNG SCREENING LOW-DOSE CT THORAX WITHOUT [...] Ashton MD, 06/11/2024 4:17 PM Sis Hopper HORIZONTAL DRILL OPERATOR CT Final Res ult * MAMMOGRAM GENERIC (SCAN ORDER) (04/20/2024) Anatomical Region Laterality Modality Other 04/20/2024 [facility] Scanned SCANNING Final Resu lt * COLOGUARD (12/24/2023) COLOGUARD NEGATIVE [facility] STOOL 12/24/2023 [facility] Scanned SCANNING Final Resu lt [facility] from Last 3 Months or Most Recently Relevant to Health Maintenance Insurance [employer] Care Teams Strapper And Buffer Relationship Specialty Start Date End Date Sis Hopper NP [address] [place], [place] [address] PCP - General NURSE PRACTITIONER 05/04/24
--- OUTSIDE RECORDS SUMMARY | 2024-12-19 14:58 | XMS_ITS | Encounter Summary ---
Author Organization [facility] Address [address] [place] [address] Care Team Providers Care Women'S Health Care Nurse Practitioner Name Role Phone Jeffery Landa DO Primary Care Provider +1- [phone] Encounter Details Date Type Department Care Team (Late st Contact Info) Description 01/03/2004 Outpatient Historical [facility] Primary Care - [address] [place] [address] Sahil Voss MD NO ADDRESS ON FILE Social History Tobacco Use Types Packs/Day Years Used Date Smoking Tobacco: Never Assessed Comments Unknown Sex and Gender Information Value Date Recorded Sex Assigned at Not on file Legal Sex Female 3:35 AM TAR HEATER OPERATOR Gender Identity Not on file Sexual Orientation Not on file documented as of this encounter Plan of Treatment Not on file documented as of this encounter Visit Diagnoses Not on filedocumented in this encounter Care Teams Women'S Health Care Nurse Practitioner Relationship Specialty Start Date End Date Jeffery Landa DO PCP - General Internal Medicine 12/06/23 documented as of this encounter
--- OUTSIDE RECORDS SUMMARY | 2024-12-19 14:58 | XMS_ITS | Encounter Summary ---
Author Organization [facility] Address [address] [place] [address] Care Team Providers Care Insurance Examining Clerk Name Role Phone Jeffery Landa DO Primary Care Provider +1- [phone] Encounter Details Date Type Department Care Team (Late st Contact Info) Description 12/24/2006 Outpatient Historical [facility] Primary Care - [address] [place] [address] Sahil Voss MD NO ADDRESS ON FILE Social History Tobacco Use Types Packs/Day Years Used Date Smoking Tobacco: Never Assessed Comments Unknown Sex and Gender Information Value Date Recorded Sex Assigned at Not on file Legal 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
--- OUTSIDE RECORDS SUMMARY | 2024-12-19 14:58 | XMS_ITS | Encounter Summary ---
Author Organization [facility] Address [address] [place] [address] Care Team Providers Care Ict Sales Representative Name Role Phone Jeffery Landa DO Primary Care Provider +1- [phone] Encounter Details Date Type Department Care Team (Late st Contact Info) Description 11/21/1998 Outpatient Historical [facility] Primary Care - [address] [place] [address] Sahil Voss MD NO ADDRESS ON FILE Social History Tobacco Use Types Packs/Day Years Used Date Smoking Tobacco: Never Assessed Comments Unknown Sex and Gender Information Value Date Recorded Sex Assigned at Not on file Legal Sex Female 3:35 AM WRISTER Gender Identity Not on file Sexual Orientation Not on file documented as of this encounter Plan of Treatment Not on file documented as of this encounter Visit Diagnoses Not on filedocumented in this encounter Care Teams Ict Sales Representative Relationship Specialty Start Date End Date Jeffery Landa DO PCP - General Internal Medicine 12/06/23 documented as of this encounter
--- OUTSIDE RECORDS SUMMARY | 2024-12-19 14:58 | XMS_ITS | Encounter Summary ---
Author Organization [facility] Address 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
--- OUTSIDE RECORDS SUMMARY | 2024-12-19 14:58 | XMS_ITS | Encounter Summary ---
Author Organization [facility] Address [address] [place] [address] Care Team Providers Care Animal Damage Control Agent Name Role Phone Jeffery Landa DO Primary Care Provider +1- [phone] Encounter Details Date Type Department Care Team (Late st Contact Info) Description 05/15/2000 Outpatient Historical [facility] Primary Care - [address] [place] [address] Sahil Voss MD NO ADDRESS ON FILE Social History Tobacco Use Types Packs/Day Years Used Date Smoking Tobacco: Never Assessed Comments Unknown Sex and Gender Information Value Date Recorded Sex Assigned at Not on file Legal Sex Female 3:35 AM TRACK HELPER Gender Identity Not on file Sexual Orientation Not on file documented as of this encounter Plan of Treatment Not on file documented as of this encounter Visit Diagnoses Not on filedocumented in this encounter Care Teams Animal Damage Control Agent Relationship Specialty Start Date End Date Jeffery Landa DO PCP - General Internal Medicine 12/06/23 documented as of this encounter
--- OUTSIDE RECORDS SUMMARY | 2024-12-19 14:58 | XMS_ITS | Encounter Summary ---
Author Organization [facility] Address [address] [place] [address] Care Team Providers Care Seismic Prospecting Observer Helper Name Role Phone Sis Hopper NP Primary Care Provider +1 -[phone] Encounter Details Date Type Department Care Team (Late st Contact Info) Description 05/07/2024 [employer] Message Enc [facility] Family Medicine - [place] [address] [place], [place] [address] Sis Hopper NP [address] [place], [place] [id number] mammogram Social History Tobacco Use Types Packs/Day [...] on filedocumented in this encounter Care Teams Seismic Prospecting Observer Helper Relationship Specialty Start Date End Date Sis Hopper NP [address] [place], [place] [address] PCP - General NURSE PRACTITIONER 05/04/24 documented as of this encounter
--- OUTSIDE RECORDS SUMMARY | 2024-12-19 14:58 | XMS_ITS | Encounter Summary ---
Author Organization [facility] Address [address] [place] [address] Care Team Providers Care Flake Miller Helper Name Role Phone Jeffery Landa DO Primary Care Provider +1- [phone] Encounter Details Date Type Department Care Team (Late st Contact Info) Description 08/29/2006 Outpatient [facility] Primary Care - [address] [place] [address] Sahil Voss MD NO ADDRESS ON FILE Social History Tobacco Use Types Packs/Day Years Used Date Smoking Tobacco: Never Assessed Comments Unknown Sex and Gender Information Value Date Recorded Sex Assigned at Not on file Legal Sex Female 3:35 AM CORNETIST Gender Identity Not on file Sexual Orientation Not on file documented as of this encounter Last Filed Vital Signs Vital Sign Reading Time Taken Comments Blood Pressure 120/80 08/29/2006 3:00 PM CORNETIST Pulse - - Temperature 37.2 C (98.9 F) 08/29/2006 3:00 PM CORNETIST Respiratory Rate - - Oxygen Saturation - - Inhaled Oxygen Concentration - - Weight 66.2 kg (146 lb) 08/29/2006 3:00 PM CORNETIST Height - - Body Mass Index - - documented in this encounter Plan of Treatment Not on file documented as of this encounter Visit Diagnoses Not on filedocumented in this encounter Care Teams Flake Miller Helper Relationship Specialty Start Date End Date Jeffery Landa DO PCP - General Internal Medicine 12/06/23 documented as of this encounter
--- OUTSIDE RECORDS SUMMARY | 2024-12-19 14:58 | XMS_ITS | Encounter Summary ---
Author Organization [facility] Address 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 [place] PHONE NUMBER: [phone] or [phone] WHO CALLED: Patient called. CURRENT ALLERGY LIST: [...] on filedocumented in this encounter Care Teams Stippler Relationship Specialty Start Date End Date Jeffery Landa DO PCP - General Internal Medicine 12/06/23 documented as of this encounter
--- OUTSIDE RECORDS SUMMARY | 2024-12-19 14:58 | XMS_ITS | Encounter Summary ---
Author Organization [facility] Address [address] [place] [address] Care Team Providers Care Pharmaceutical Plant Operator Name Role Phone Jeffery Landa DO Primary Care Provider +1- [phone] Encounter Details Date Type Department Care Team (Late st Contact Info) Description 07/01/2000 Outpatient Historical [facility] Primary Care - [address] [place] [address] Sahil Voss MD NO ADDRESS ON FILE Social History Tobacco Use Types Packs/Day Years Used Date Smoking Tobacco: Never Assessed Comments Unknown Sex and Gender Information Value Date Recorded Sex Assigned at Not on file Legal Sex Female 3:35 AM CAB WORKER Gender Identity Not on file Sexual Orientation Not on file documented as of this encounter Plan of Treatment Not on file documented as of this encounter Visit Diagnoses Not on filedocumented in this encounter Care Teams Pharmaceutical Plant Operator Relationship Specialty Start Date End Date Jeffery Landa DO PCP - General Internal Medicine 12/06/23 documented as of this encounter
--- OUTSIDE RECORDS SUMMARY | 2024-12-19 14:58 | XMS_ITS | Encounter Summary ---
Author Organization [facility] Address 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 MEDICATIONS: Patient is taking no medications at present. CHIEF COMPLAINT Patient complains of sinus congestion. and lt arm numbness HISTORY: She notes numbness lateral aspect index finger on left over period of weeks. Mild vague sxaround elbow. Neck is mildly stiff, but not painful. 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 PHYSICAL EXAMINATION: left hand 2 nd digit MUSCULOSKELETAL EXAM: HEAD AND NECK: mild muscular tenderness EXTREMITIES: LEFT LOWER EXTREMITY: No misalignment or tenderness. Full range of motion. Normal stability, strength and tone. 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 DEEP TENDON [...] on filedocumented in this encounter Care Teams Division Chief Relationship Specialty Start Date End Date Jeffery Landa DO PCP - General Internal Medicine 12/06/23 documented as of this encounter
--- OUTSIDE RECORDS SUMMARY | 2024-12-19 14:58 | XMS_ITS | Encounter Summary ---
Author Organization [facility] Address 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 Gender Identity Not on file Sexual Orientation Not on file documented as of this encounter Last Filed Vital Signs Vital Sign Reading Time Taken Comments Blood Pressure 110/80 10/06/2007 2:30 PM PLATING MACHINE OPERATOR Pulse - - Temperature 37 C (98.6 F) 10/06/2007 2:30 PM PLATING MACHINE OPERATOR Respiratory Rate - - Oxygen Saturation - - Inhaled Oxygen Concentration - - Weight 71.3 kg (157 lb 2 oz) 10/06/2007 2:30 PM PLATING MACHINE OPERATOR Height - - Body Mass Index - - documented in this encounter Plan of Treatment Not on file documented as of this encounter Visit Diagnoses Not on filedocumented in this encounter Care Teams Outside Cutter Relationship Specialty Start Date End Date Jeffery Landa DO PCP - General Internal Medicine 12/06/23 documented as of this encounter
--- OUTSIDE RECORDS SUMMARY | 2024-12-19 14:58 | XMS_ITS | Encounter Summary ---
Author Organization [facility] Address 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
--- OUTSIDE RECORDS SUMMARY | 2024-12-19 14:58 | XMS_ITS | Encounter Summary ---
Author Organization [facility] Address 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
--- OUTSIDE RECORDS SUMMARY | 2024-12-19 14:58 | XMS_ITS | Encounter Summary ---
Author Organization [facility] Address 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 LAST VISIT: PCP: marc. ALTERNATIVE PHONE NUMBER: [phone] WHO CALLED: Patient called. CURRENT ALLERGY LIST: [...] on filedocumented in this encounter Care Teams Senior Production Supervisor Relationship Specialty Start Date End Date Jeffery Landa DO PCP - General Internal Medicine 12/06/23 documented as of this encounter
--- OUTSIDE RECORDS SUMMARY | 2024-12-19 14:58 | XMS_ITS | Encounter Summary ---
Author Organization [facility] Address [address] [place] [address] Care Team Providers Care Windlasser Name Role Phone Jeffery Landa DO Primary Care Provider +1- [phone] Encounter Details Date Type Department Care Team (Late st Contact Info) Description 08/13/2003 Outpatient Historical [facility] Primary Care - [address] [place] [address] Sahil Voss MD NO ADDRESS ON FILE Social History Tobacco Use Types Packs/Day Years Used Date Smoking Tobacco: Never Assessed Comments Unknown Sex and Gender Information Value Date Recorded Sex Assigned at Not on file Legal Sex Female 3:35 AM REGIONAL DIRECTOR 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
--- OUTSIDE RECORDS SUMMARY | 2024-12-19 14:58 | XMS_ITS | Encounter Summary ---
Author Organization [facility] Address [address] [place] [address] Care Team Providers Care College Or University Department Head Name Role Phone Jeffery Landa DO Primary Care Provider +1- [phone] Encounter Details Date Type Department Care Team (Late st Contact Info) Description 11/09/2004 Outpatient Historical [facility] Primary Care - [address] [place] [address] Sahil Voss MD NO ADDRESS ON FILE Social History Tobacco Use Types Packs/Day Years Used Date Smoking Tobacco: Never Assessed Comments Unknown Sex and Gender Information Value Date Recorded Sex Assigned at Not on file 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
--- OUTSIDE RECORDS SUMMARY | 2024-12-19 14:58 | XMS_ITS | Encounter Summary ---
Author Organization [facility] Address 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 Gender Identity Not on file Sexual Orientation Not on file documented as of this encounter Plan of Treatment Not on file documented as of this encounter Procedures Procedure Name Priority Date/Time Associated Diagnosis Comments CBC WITH DIFFERENTIAL Routine 11/30/2008 6:05 AM CDT PATHOLOGY Routine 11/29/2008 5:00 PM CDT POC , URINE Routine 11/29/2008 11:15 AM CDT HEMOGLOBIN AND HEMATOCRIT Routine 11/24/2008 9:21 AM SYSTEMS REQUIREMENTS PLANNER TYPE AND SCREEN Routine 11/24/2008 9:20 AM SYSTEMS REQUIREMENTS PLANNER documented in this encounter Results * (ABNORMAL) CBC WITH DIFFERENTIAL (11/30/2008 6:05 AM CDT) HEMOGLOBIN 11.8 11.8 - 14.8 g/dL [facility] RDW 12.8 11.5 - 14.5 % [facility] WBC 16.0(H) 4.0 - 9.8 K/uL [facility] MCH 32.0 27.2 - 32.6 pg [facility] MPV 11.5 9.3 - 12.4 fL [facility] HEMATOCRIT 36.0 35.5 - 44.0 % [facility] RDW-STDEV 45.6 37.1 - 48.7 fL [facility] RBC 3.69(L) 3.90 - 4.90 M/uL [facility] MCHC 32.8 31.5 - 35.5 % [facility] MCV 97.6 82.0 - 99.0 fL [facility] PLATELETS 230 140 - 350 K/uL [facility] LYMPHOCYTE ABSOLUTE 1.76 0.70 - 4.50 K/uL [facility] BANDS 1 0 - 5 % [facility] METAMYELOCYTE 3(H) <=0 % [facility] BASOPHILS ABSOLUTE 0.00 0.00 - 0.20 K/uL [facility] REVIEWED ON SMEAR Plt reviewed [facility] EOSINOPHILS 0 0 - 7 % [facility] MONOCYTE ABSOLUTE 0.32 0.10 - 1.30 K/uL [facility] PLATELET EST. Consistent w/ count Normal [facility] LYMPHOCYTES 11(L) 16 - 45 % [facility] NEUTROPHIL ABSOLUTE 13.44(H) 1.90 - 7.00 K/uL [facility] NEUTROPHILS, SEG 83(H) 45 - 70 % [facility] BASOPHILS 0 0 - 2 % [facility] EOSINOPHIL ABSOLUTE 0.00 0.00 - 0.70 K/uL [facility] MONOCYTES 2(L) 3 - 13 % [facility] RBC MORPHOLOGY Normal Normal [facility] Blood specimen (specimen) 11/30/2008 6:05 AM CDT 11/30/2008 6:19 AM CDT us Sanjay Cardona MD HEMATOLOGY ORDERABLES Edited INTERFACE SYSTEM Refer to clinic/hospital department [facility] CLIA# [id number] [address] [place] [address] * PATHOLOGY (11/29/2008 5:00 PM CDT) FINAL REPORT [address] [address] Patient: COLEEN REARDON : 1960 Procedure Date: 11/29/2008 Accession Date: 11/30/2008 Case No: [id number] Ordering Dr: SANJAY CARDONA Case types AW, BW, FW, NW and SH are performed by [place], [place] SURGICAL PATHOLOGY & NON-GYNECOLOGIC CYTOPATHOLOGY REPORT [...] ovary and tube; A6-smaller ovary and tube. [facility] 11.30.2008 12:04 pm Microscopic: The slides are labeled [id number], Coleen Malcolmsalvador. The ectocervical mucosa is parakeratotic. No endocervical glandular atypia is seen. The endometrium has a proliferative pattern. The myometrium contains a small, well-circumscribed leiomyoma composed of interlacing fascicles of cytologically bland, smooth muscle cells without significant mitotic activity. One of the ovaries contains a corpus luteum and several cystic follicles. The other ovary and fallopian tubes are unremarkable. [facility] 12.01.2008 02:36 pm Staging Form: No. ELECTRONIC SIGNATURE FOR NINO GAMINO M.D.- 12/01/08 03:11 pm INTERFACE SYSTEM 11/29/2008 5:00 PM CDT us Sanjay Cardona MD PATHOLOGY/CYTOLOGY ORDERABLE S Final Result INTERFACE SYSTEM Refer to clinic/hospital department * POC , URINE (11/29/2008 11:15 AM CDT) , URINE POC Negative Negative [facility] Urine specimen (specimen) 11/29/2008 11:15 AM CDT 11/29/2008 11:15 AM CDT Sanjay Cardona MD POINT OF CARE TESTING Final Result Performing Organization Address [facility] de Phone Number INTERFACE SYSTEM Refer to clinic/hospital department [facility] CLIA# [id number] [address] [place] [address] * (ABNORMAL) HEMOGLOBIN AND HEMATOCRIT (11/24/2008 9:21 AM SYSTEMS REQUIREMENTS PLANNER) HEMATOCRIT 44.2(H) 35.5 - 44.0 % [facility] HEMOGLOBIN 14.5 11.8 - 14.8 g/dL [facility] Blood specimen (specimen) 11/24/2008 9:21 AM SYSTEMS REQUIREMENTS PLANNER 11/24/2008 9:50 AM SYSTEMS REQUIREMENTS PLANNER Sanjay Cardona MD HEMATOLOGY ORDERABLES Final Result Performing Organization Address [facility] Phone Number INTERFACE SYSTEM Refer to clinic/hospital department [facility] CLIA# [id number] [address] [place] [address] * TYPE AND SCREEN (11/24/2008 9:20 AM SYSTEMS REQUIREMENTS PLANNER) HISTORY CHECK No Historical ABO/Rh [facility] SPECIMEN LIFE 3 days from OR date [facility] ABO/RH TYPE A Positive [facility] ANTIBODY SCREEN Negative [facility] Blood specimen (specimen) 11/24/2008 9:20 AM SYSTEMS REQUIREMENTS PLANNER us Sanjay Cardona MD BLOOD BANK ORDERABLES Edited INTERFACE SYSTEM Refer to clinic/hospital department [facility] CLIA# [id number] [address] [place] [address] documented in this encounter Visit Diagnoses Not on filedocumented in this encounter Care Teams Shell Sorter Relationship Specialty Start Date End Date Jeffery Landa DO PCP - General Internal Medicine 12/06/23 documented as of this encounter
--- OUTSIDE RECORDS SUMMARY | 2024-12-19 14:58 | XMS_ITS | Encounter Summary ---
Author Organization [facility] Address 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 no dyspnea or pleuritic element.Hasused tylenol with [...] on filedocumented in this encounter Care Teams Thermal Spray Operator Relationship Specialty Start Date End Date Jeffery Landa DO PCP - General Internal Medicine 12/06/23 documented as of this encounter
--- OUTSIDE RECORDS SUMMARY | 2024-12-19 14:58 | XMS_ITS | Encounter Summary ---
Author Organization [facility] Address [address] [place] [address] Care Team Providers Care Software Engineer Intern Name Role Phone Jeffery Landa DO Primary Care Provider +1- [phone] Encounter Details Date Type Department Care Team (Late st Contact Info) Description 12/28/2003 Outpatient Historical [facility] Primary Care - [address] [place] [address] Sahil Voss MD NO ADDRESS ON FILE Social History Tobacco Use Types Packs/Day Years Used Date Smoking Tobacco: Never Assessed Comments Unknown Sex and Gender Information Value Date Recorded Sex Assigned at Not on file Legal Sex Female 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
--- OUTSIDE RECORDS SUMMARY | 2024-12-19 14:58 | XMS_ITS | Encounter Summary ---
Author Organization [facility] Address [address] [place] [address] Care Team Providers Care Waiter/Waitress Tavern Name Role Phone Jeffery Landa Primary Care Provider +1- [phone] Encounter Details Date Type Department Care Team (Late st Contact Info) Description 01/28/[address] 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 LAST VISIT: 07-10-05 PCP: marc. ALTERNATIVE PHONE NUMBER: [phone] WHO CALLED: Patient called. CURRENT ALLERGY LIST: [...] on filedocumented in this encounter Care Teams Waiter/Waitress Tavern Relationship Specialty Start Date End Date Jeffery Landa DO PCP - General Internal Medicine 12/06/23 documented as of this encounter
--- OUTSIDE RECORDS SUMMARY | 2024-12-19 14:58 | XMS_ITS | Encounter Summary ---
Author Organization [facility] Address 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
--- OUTSIDE RECORDS SUMMARY | 2024-12-19 14:58 | XMS_ITS | Encounter Summary ---
Author Organization [facility] Address [address] [place] [address] Care Team Providers Care Clip Coater Name Role Phone Jeffery Landa Primary Care Provider +1- [phone] Encounter Details Date Type Department Care Team (Late st Contact Info) Description 12/24/2006 Orders Only [facility] Primary Care - [address] [place] [address] Sahil Voss MD NO ADDRESS ON FILE Social History Tobacco Use Types Packs/Day Years Used Date Smoking Tobacco: Never Assessed Comments Unknown Sex and Gender Information Value Date Recorded Sex Assigned at Not on file Legal Sex Female 3:35 AM BRONC BREAKER Gender Identity Not on file Sexual [...] on filedocumented in this encounter Care Teams Clip Coater Relationship Specialty Start Date End Date Jeffery Landa DO PCP - General Internal Medicine 12/06/23 documented as of this encounter
--- OUTSIDE RECORDS SUMMARY | 2024-12-19 14:58 | XMS_ITS | Encounter Summary ---
Author Organization [facility] Address [address] [place] [address] Care Team Providers Care Bending Press Operator Name Role Phone Jeffery Landa DO Primary Care Provider +1- [phone] Encounter Details Date Type Department Care Team (Late st Contact Info) Description 06/21/1998 Outpatient Historical [facility] Primary Care - [address] [place] [address] Sahil Voss MD NO ADDRESS ON FILE Social History Tobacco Use Types Packs/Day Years Used Date Smoking Tobacco: Never Assessed Comments Unknown Sex and Gender Information Value Date Recorded Sex Assigned at Not on file Legal Sex Female 3:35 AM FIRE RANGER Gender Identity Not on file Sexual Orientation Not on file documented as of this encounter Plan of Treatment Not on file documented as of this encounter Visit Diagnoses Not on filedocumented in this encounter Care Teams Bending Press Operator Relationship Specialty Start Date End Date Jeffery Landa DO PCP - General Internal Medicine 12/06/23 documented as of this encounter
--- OUTSIDE RECORDS SUMMARY | 2024-12-19 14:58 | XMS_ITS | Encounter Summary ---
Author Organization [facility] Address [address] [place] [address] Care Team Providers Care Bulk Tank Driver Name Role Phone Jeffery Landa Primary Care Provider +1- [phone] Encounter Details Date Type Department Care Team (Late st Contact Info) Description 06/03/2006 Orders Only [facility] Primary Care - [address] [place] [address] Sahil Voss MD NO ADDRESS ON FILE Social History Tobacco Use Types Packs/Day Years Used Date Smoking Tobacco: Never Assessed Comments Unknown Sex and Gender Information Value Date Recorded Sex Assigned at Not on file Legal Sex Female 3:35 AM PRODUCT DEVELOPMENT INTERN Gender Identity Not on file Sexual Orientation Not on file documented as of this encounter Progress Notes * Sahil Voss MD - 07/06/2008 6:03 PM CDT TIME:09:12 am PATIENT`S HOME PHONE: PATIENT`S WORK PHONE: PATIENT`S INSURANCE: [facility] WHO TOOK THE CALL: Salas Ashton GENERAL INFORMATION PATIENT STATUS: Established Patient. LAST VISIT: 07-10-05 PCP: marc. ALTERNATIVE PHONE NUMBER: [phone] / [phone] WHO CALLED: Patient called. CURRENT ALLERGY LIST: [...] on filedocumented in this encounter Care Teams Bulk Tank Driver Relationship Specialty Start Date End Date Jeffery Landa DO PCP - General Internal Medicine 12/06/23 documented as of this encounter
--- OUTSIDE RECORDS SUMMARY | 2024-12-19 14:58 | XMS_ITS | Encounter Summary ---
Author Organization [facility] Address 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
--- OUTSIDE RECORDS SUMMARY | 2024-12-19 14:58 | XMS_ITS | Encounter Summary ---
Author Organization [facility] Address 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
[2024-12-19 15:23] LABS: Basophils Percent Auto 0.4 % (0.2-1.2); Eosinophils Absolute Auto 0.2 K/mm3 (0-0.3); Eosinophils Percent Auto 1.7 % (0-4.4); Hematocrit 41.8 % (37.0-47.0); Hemoglobin 13.6 g/dL (12.0-15.0); Immature Granulocyte Absolute 0.03 K/mm3 (0.00-0.031); Immature Granulocyte Percent A 0.3 % (0-0.5); Lymphocytes Absolute Auto 2.77 K/mm3 (0.9-3.2); Lymphocytes Percent Auto 31.1 % (18.3-44.2); Mean Corpuscular HGB Conc 32.5 g/dl (32-36); Mean Corpuscular Hemoglobin 31.6 pg (26-34); Mean Corpuscular Volume 97.2 fl (80-100); Mean Platelet Volume 10.5 fl (7.4-10.4); Monocytes Absolute Auto 0.5 K/mm3 (0.1-0.6); Monocytes Percent Auto 5.8 % (2.6-8.5); Neutrophils Absolute Auto 5.4 K/mm3 (1.3-6.7); Neutrophils Percent Auto 60.7 % (45.5-73.1); Platelet Count Result 231 k/mm3 (150-375); Red Cell Distribution Width 13.2 % (11.5-14.5); White Blood Count 8.9 K/mm3 (4.5-10.0)
[2024-12-19 15:33] LABS: INR 0.9; Partial Thromboplastin Time 31.9 Seconds (22.3-36.8); Prothrombin Time 13.1 Seconds (11.1-14.7)
[2024-12-19 15:37] LABS: Alanine Aminotransferase 16 U/L (6-35); Albumin Level 4.3 g/dL (3.5-5.1); Alkaline Phosphatase 84 U/L (38-126); Anion Gap 8 mmol/L (4-12); Aspartate Amino Transferase 26 U/L (14-36); Bilirubin,Total 0.6 mg/dL (0.2-1.3); Blood Urea Nitrogen 12 mg/dL (7-17); Calcium 9.4 mg/dL (8.4-10.2); Carbon Dioxide 24 mmol/L (22-30); Chloride 106 mmol/L (98-107); Estimated CRCL calculation 81 ml/min; Estimated Glomerular Filt Rate > 60; Glucose 85 mg/dL (65-110); Lipase 429 U/L (23-300); Potassium 4.2 mmol/L (3.4-5.0); Sodium 138 mmol/L (137-145)
--- NOTE | 2024-12-19 15:37 | ED_ITS ---
HPI - Extremity Problem General Chief complaint: Extremity Problem,Nontraumatic Stated complaint: Right shoulder pain-no injury Time Seen by Provider: 12/19/24 14:49 History of Present Illness HPI Narrative: 64-year-old female with no significant pertinent past medical history. Patient presents to the emergency department for evaluation of right-sided shoulder pain radiating towards her jaw. She states she also had some shoulder pain or left- sided. Denies any trauma or injury. No overuse injury or memorable cause. She denies any chest pain shortness a breath but did have some chest pain and pain between her shoulder blades before this happened. Patient denies any active chest pain or shortness a breath at this time. No history of DVT or PE. No cardiac disease history to her knowledge. Family history of cardiac disease however. No nauseous, vomiting, abdominal pain, back pain. She has not tried any at home remedies for pain control this time. Related Data Allergies Allergy/AdvReac Type Severity Reaction Status Date / Time prednisone AdvReac Mild Itching Verified 12/19/24 14:32 azithromycin AdvReac Abdominal Verified 12/19/24 14:32 Pain morphine AdvReac Nausea and Verified 12/19/24 14:32 Vomiting Review of Systems 2 Review of Systems: As reviewed above in HPI [facility] Surgical History Surgical History History of hysterectomy Hx of cholecystectomy History of appendectomy Family History Family History Other Acute myocardial infarction Heart disease Hypertension Social History Social History Smoking packs per day: 1 Smoking cigarettes per day: 20.0 Years smoked: 45 Smoking pack-years: 45.00 Smoking status: Current every day smoker Alcohol intake: current Alcohol use details: social Substance use type: does not use Gender identity (if verbalized by the patient): Female Exam 2 Narrative: GENERAL: [Well-appearing, well-nourished, and in no acute distress.] HEAD: [Normocephalic, atraumatic.] EYES: [PERRLA and EOMI.] ENT: Nares clear, no rhinorrhea or epistaxis. Mucous membranes moist. NECK: Supple. CHEST: [Clear to auscultation. No respiratory distress.] HEART: [Regular rate and rhythm]. No murmur heard. [Normal peripheral pulses.] ABDOMEN: [Soft, nondistended], [nontender], [No rigidity or guarding] EXTREMITIES: Normal range of motion. [No edema.] SKIN: Warm, dry, no rash. NEURO: [No focal deficits]. Alert and oriented [x3.] PSYCH: [Normal mood and affect.] Course Vital Signs Vital signs: Vital Signs Temperature 36.8 C 12/19/24 14:00 Pulse Rate 86 12/19/24 14:00 Respiratory Rate 14 12/19/24 14:00 Blood Pressure 158/97 H 12/19/24 14:00 Pulse Oximetry 100 12/19/24 14:00 Temperature 36.8 C 12/19/24 14:00 Pulse Rate 86 12/19/24 14:00 Respiratory Rate 14 12/19/24 14:00 Blood Pressure 158/97 H 12/19/24 14:00 Pulse Oximetry 100 12/19/24 14:00 MDM - Extremity (Nontraumatic) MDM Narrative Medical decision making narrative: 64-year-old female with no significant history presenting to the emergency department for evaluation of bilateral shoulder plain. No appreciable injuries. No restricted range of motion. She has strong symmetric pulses, normal vital signs aside from some elevated blood pressure, no tachycardia, fever or hypoxia. Unremarkable cardiovascular assessment. She thinks it could be musculoskeletal or osteoarthritis in nature but is worried about her heart as she has a family history of cardiac disease. Cardiac workup was ordered including a CBC, CMP, D- dimer, troponin. Bilateral shoulder x-rays and a chest x-ray ordered. EKG obtained. She was given Toradol for analgesia. Differential diagnosis includes musculoskeletal shoulder pain, musculoskeletal ribcage pain, low suspicion pulmonary etiology such as pneumonia or pneumothorax. Low suspicion ACS or aortic pathology. Workup reveals no leukocytosis or anemia. Normal platelet count. Normal coag studies. Normal D-dimer. Normal electrolytes, normal renal function, normal hepatic function. Negative troponin. Mildly elevated lipase but not significant. The left shoulder has some inferior positioning of the humeral head but no signs of acute dislocation. Maybe minor subluxation at best but there are no fractures. She has full range of motion of this extremity and this is likely anatomic variant rather than subluxation. The right shoulder has no acute fractures, there is a supraspinatus tendinosis appreciated consistent with history. Patient was re-evaluated and comfortable with the plan for discharge home with anti-inflammatory regimen and outpatient referral to Orthopedics further evaluation. Patient was started on meloxicam and ibuprofen and safe for discharge at this time. Does not require any sling, full range of motion on reassessment, no traumatic injury. Lab Data 12/19/24 15:17 12/19/24 15:17 Labs: Lab Results 12/19/24 Range/Units 15:17 WBC 8.9 (4.5-10.0) K/mm3 RBC 4.30 (4.2-5.4) M/mm3 Hgb 13.6 (12.0-15.0) g/dL Hct 41.8 (37.0-47.0) % MCV 97.2 (80-100) fl MCH 31.6 (26-34) pg MCHC 32.5 (32-36) g/dl RDW 13.2 (11.5-14.5) % Plt Count 231 (150-375) k/mm3 MPV 10.5 H (7.4-10.4) fl Immature Gran % (Auto) 0.3 (0-0.5) % Neut % (Auto) 60.7 (45.5-73.1) % Lymph % (Auto) 31.1 (18.3-44.2) % Cherry % (Auto) 5.8 (2.6-8.5) % Eos % (Auto) 1.7 (0-4.4) % Baso % (Auto) 0.4 (0.2-1.2) % Lymph # (Auto) 2.77 (0.9-3.2) K/mm3 Cherry # (Auto) 0.5 (0.1-0.6) K/mm3 Eos # (Auto) 0.2 (0-0.3) K/mm3 Baso # (Auto) 0.0 (0.0-0.1) K/mm3 Abs Immat Gran (auto) 0.03 (0.00-0.031) K/mm3 Absolute Neuts (auto) 5.4 (1.3-6.7) K/mm3 Absolute Nucleated RBC 0.000 (0.0-0.012) K/mm3 Nucleated RBC % 0.0 (0.0-0.2) % PT 13.1 (11.1-14.7) Seconds INR 0.9 APTT 31.9 (22.3-36.8) Seconds D-Dimer < 0.27 (<0.48) ug/mL Sodium 138 (137-145) mmol/L Potassium 4.2 (3.4-5.0) mmol/L Chloride 106 (98-107) mmol/L Carbon Dioxide 24 (22-30) mmol/L Anion Gap 8 (4-12) mmol/L BUN 12 (7-17) mg/dL Creatinine 0.59 L (0.7-1.0) mg/dL Estim Creat Clear Calc 81 ml/min Estimated GFR > 60 (59 - ) Glucose 85 (65-110) mg/dL Calcium 9.4 (8.4-10.2) mg/dL Total Bilirubin 0.6 (0.2-1.3) mg/dL AST 26 (14-36) U/L ALT 16 (6-35) U/L Alkaline Phosphatase 84 (38-126) U/L Troponin I < 0.012 (0.000-0.034) ng/mL Total Protein 7.0 (6.3-8.2) g/dL Albumin 4.3 (3.5-5.1) g/dL Lipase 429 H (23-300) U/L Discharge Plan Discharge Clinical Impression: Right supraspinatus tendonitis, Bilateral shoulder pain Patient Disposition: Home, Self-Care Condition: Stable Instructions: Antibiotic Form, Tendinitis (ED) Additional Instructions: Your cardiac workup was unremarkable and negative. Your right shoulder x-ray shows signs of a tendinosis or inflammation of the supraspinatus muscle in the shoulder which is in the rotator cuff region. The left shoulder has no acute fractures, there is some widening of the joint space there which might be some occult labrum injury but no fractures, dislocation, or subluxation. Will refer you to orthopedics further evaluation on outpatient basis. Recommendations at this time are for ice to the area in pain and anti-inflammatory measures such as meloxicam and ibuprofen. Follow-up with Orthopedics, follow-up with your primary doctor with any new concerns, return to the ER with any emergencies. Patient Language: Korean Prescriptions: New meloxicam 7.5 mg tablet 7.5 mg PO DAILY Qty: 30 0RF acetaminophen [Tylenol Extra Strength] 500 mg tablet 1,000 mg PO TID PRN (Reason: pain) Qty: 30 0RF No Action oseltamivir [Tamiflu] 75 mg capsule 75 mg PO Q12H 5 Days Qty: 10 0RF albuterol sulfate 90 mcg/actuation HFA aerosol inhaler 2 puff inhalation Q4-6H PRN (Reason: shortness of breath or wheezing) 30 Days Qty: 8.5 0RF Follow-up/Referrals: Job Wagoner MD [Physician] - 1 Week (Bilateral shoulder pain, right supraspinatus tendinosis) Ruchi,MAYKEL Herndon [Primary Care Provider] - Time of Disposition: 16:24
[2024-12-19 15:44] LABS: D Dimer < 0.27 ug/mL (<0.48)
[2024-12-19 15:48] LABS: Troponin I < 0.012 ng/mL (0.000-0.034)
[2024-12-19] MEDS: KETOROLAC 15 MG/ML VIAL (*BKC) IV PUSH (15:51)
== END 2024-12-19 16:34 | disposition home or self-care (01) ==
PROVIDERS: Emergency Provider Student in an Organized Health Care Education/Training Program; PCP Nurse Practitioner
DX: M75.81 Other shoulder lesions, right shoulder (principal); M25.512 Pain in left shoulder; F17.210 Nicotine dependence, cigarettes, uncomplicated; Z90.49 Acquired absence of other specified parts of digestive tract; Z90.710 Acquired absence of both cervix and uterus; R94.31 Abnormal electrocardiogram [ECG] [EKG]
CPT/HCPCS: 36415; 71045; 73030; 80053; 83690; 84484; 85025; 85380; 85610; 85730; 93005; 96374; 99284; J1885

== ENCOUNTER 2025-04-15 09:11 | Outpatient (CLI) | payer OTHER, SELFPAY ==
--- NOTE | ~2025-04-15 | CT_ITS ---
EXAMINATION: CT abdomen pelvis wo con DATE: 04/15/2025 09:30 INDICATION: Right flank pain and hematuria TECHNIQUE: Computed tomography (CT) of the abdomen and pelvis was performed without intravenous contr ast. Automated exposure control and iterative reconstruction technique were employed. The dose-length product was 487.34 mGy-cm. COMPARISON: None FINDINGS: Cluster small calcified nodules in the right lower lobe consistent with old granulomatous disease. Vi sualized inferior heart is normal. No pericardial or pleural effusion. Cholecystectomy clips the gall bladder fossa. Tiny splenic calcification consistent with old granulomatous disease. Pancreas and haider ateral adrenal glands are normal. Air-fluid level within a 3.9 cm duodenal diverticulum arising from either the second or third portion of the duodenum. 3.4 cm left renal cyst. Kidneys and ureters are o therwise normal with no urolithiasis, hydroureteronephrosis or perinephric/ureteral stranding. Couple phleboliths along with small amount of atherosclerotic calcifications in the pelvis. There is diffus e fatty infiltration of the wall the colon likely related to body habitus. Mild sigmoid diverticulosi s without adjacent from trace stranding to suggest diverticulitis. No bowel obstruction. The appendix is not visualized. No pericecal inflammatory change to suggest acute appendicitis. No free intraperi toneal gas or fluid. No pathologically enlarged abdominal or pelvic lymphadenopathy. Severe lower lum bar and moderate lower thoracic spondylosis. IMPRESSION: 1. No urolithiasis or acute intra-abdominal/pelvic process.. Reviewed, dictated and finalized at location A.
== END 2025-04-15 09:12 | disposition home or self-care (01) ==
LOC: MICIMG 09:12
PROVIDERS: PCP Nurse Practitioner; Visit Provider Nurse Practitioner
DX: R31.29 Other microscopic hematuria (principal); Z87.442 Personal history of urinary calculi
CPT/HCPCS: 74176

== ENCOUNTER 2025-06-14 08:51 | Emergency (ER) | payer OTHER, SELFPAY ==
[2025-06-14 08:59] VITALS: BP 142/83; PULSE 82; RESP 18; TEMP 36.6; O2SAT 100
--- NOTE | 2025-06-14 09:12 | ED.EAR ---
HPI - Ear Problem General Chief complaint: Ear Stated complaint: LT Ear Problem Time Seen by Provider: 06/14/25 09:12 Source: patient, RN notes reviewed and old records reviewed Mode of arrival: ambulatory Limitations: no limitations History of Present Illness HPI Narrative: 64 year old female who presents to [facility] care with complaints of 5-6 days of some sinus congestion and drainage and left ear pain. Patient reports that for the past few days she has noticed some dizziness at times. Patient reports that she has taken Tylenol for her discomfort. Patient reports no nausea vomiting or diarrhea. She denies any chills sweats or any known fevers. MD Complaint: ear pain and other (feeling dizziness at times) Location: left ear Duration: constant Severity: moderate Discharge from ear: Reports no Treatment prior to arrival: other (Tylenol) Related Data Home Medications ?Medication ?Instructions ?Recorded ?Confirmed ?Last Taken ?Type ezetimibe 10 mg tablet mg 06/14/25 Unknown History Allergies Allergy/AdvReac Type Severity Reaction Status Date / Time prednisone AdvReac Mild Itching Verified 06/14/25 09:05 azithromycin AdvReac Abdominal Verified 06/14/25 09:05 Pain morphine AdvReac Nausea and Verified 06/14/25 09:05 Vomiting Review of Systems Review of Systems: CONSTITUTIONAL: Reports malaise,no chills, sweats, or fever. EYES: Denies visual changes, redness, or discharge. ENT: Reports rhinorrhea, congestion, sinus pressure,left otalgia and no sore throat. CARDIOVASCULAR: Denies chest pain, palpitations, or edema. RESPIRATORY: Reports no acute cough.? Denies dyspnea. GASTROINTESTINAL: Denies abdominal pain, nausea, vomiting, diarrhea SKIN: Denies rash or itching. MUSCULOSKELETAL: Denies myalgia. NEUROLOGIC: Denies headache reports some dizziness All systems reviewed & are unremarkable except as noted in HPI and below PMFSH Past Medical History Medical History (Updated 06/15/25 @ 08:15 by Yulissa Bueno NP) Elevated cholesterol Post-menopausal Surgical History Surgical History History of hysterectomy Hx of cholecystectomy History of appendectomy Family History Family History Other Acute myocardial infarction Heart disease Hypertension Social History Social History Smoking packs per day: 1 Smoking cigarettes per day: 20.0 Years smoked: 45 Smoking pack-years: 45.00 Smoking status: Current every day smoker Alcohol intake: current Alcohol use details: social Substance use: never Do You Feel Safe in your Home?: Yes Lack of Transportation: No Lack of Food: Never True Current Housing: I Have Housing Concerned About Future Housing: No Difficulty Paying Gas/Electric Bills: No Difficulty Paying for Meds: No Currently Unemployed: No Education: High School Diploma/GED Difficulty w/ Childcare or Family Care: No Gender identity (if verbalized by the patient): Female Comments At time of signature, agree with nursing past medical, surgical, social and family history. There is no relevant family history pertinent to the presenting complaint Exam Narrative: GENERAL: Well-appearing, well-nourished, and in no acute distress. HEAD: Normocephalic EYES: PERRLA, conjunctivae clear, no nystagmus ENT: Nares clear, turbinates edematous and erythematous, clear discharge. Mucous membranes moist.Left TM red and bulging, Right TM pearly clark with dull light reflex ; no tragal tenderness. Oropharynx erythematous without lesions. Tonsils not enlarged and without exudate, no drooling, no hoarseness, no trismus, uvula midline. NECK: Supple. No lymphadenopathy CHEST: Clear to auscultation, breath sounds equal. No wheezing, rhonchi, rales, or stridor. No respiratory distress, speaks in full sentences.SAO2 100% on room air HEART: Regular rate and rhythm. No murmur heard. SKIN: Warm, dry, no rash. NEURO: Alert and oriented x3. reports some dizziness intermittent, cranial nerves intact without deficit, gait steady PSYCH: Normal mood and affect Course Course Emergency Course: Patient is aware of diagnosis, understands and agrees to treatment plan.? Anticipatory guidance given.? Patient agrees to follow-up as directed and is aware of reasons to seek care at the emergency department. Portions of this record may have been created with voice recognition software Level of Care: Express Care Visit Vital Signs Vital signs: Vital Signs Temperature 36.6 C 06/14/25 08:59 Pulse Rate 82 06/14/25 08:59 Respiratory Rate 18 06/14/25 08:59 Blood Pressure 142/83 H 06/14/25 08:59 Pulse Oximetry 100 06/14/25 08:59 Oxygen Delivery Room Air 06/14/25 08:59 Temperature 36.6 C 06/14/25 08:59 Pulse Rate 82 06/14/25 08:59 Respiratory Rate 18 06/14/25 08:59 Blood Pressure 142/83 H 06/14/25 08:59 Pulse Oximetry 100 06/14/25 08:59 Oxygen Delivery Room Air 06/14/25 08:59 Reviewed Medical Decision Making Differential Diagnosis Differential Diagnosis: URI, otitis media, otitis externa, viral infection, dizziness Medical Records Medical records reviewed: Yes I reviewed the external patient's medical records. Vital Signs Vital Signs: Vital Signs Temperature 36.6 C 06/14/25 08:59 Pulse Rate 82 06/14/25 08:59 Respiratory Rate 18 06/14/25 08:59 Blood Pressure 142/83 H 06/14/25 08:59 Pulse Oximetry 100 06/14/25 08:59 Oxygen Delivery Room Air 06/14/25 08:59 Temperature 36.6 C 06/14/25 08:59 Pulse Rate 82 06/14/25 08:59 Respiratory Rate 18 06/14/25 08:59 Blood Pressure 142/83 H 06/14/25 08:59 Pulse Oximetry 100 06/14/25 08:59 Oxygen Delivery Room Air 06/14/25 08:59 reviewed Critical Care Time Critical Care Time Critical Care Time: No Discharge Plan Discharge Clinical Impression: Acute left otitis media Patient Disposition: Home Condition: Stable Instructions: Antibiotic Form, Ear Infection (ED) Additional Instructions: Increase fluids especially juices and water [id number] cough and cold medicine of your choice for your symptoms Zyrtec or Claritin daily recommend Coricidin brand decongestant Meclizine for any dizziness heat to the face 20-30 minutes 4-6 times a day for pain Salt water gargles, throat lozenges or throat sprays as desired Antibiotic as directed--finished the medication If your symptoms persist, change or worsen significantly before you can contact your personal physician then please, without delay, go to the emergency department for further evaluation. Follow-up with PCP in 7-10 days or sooner if needed Follow up with PCP soon in regards to your blood pressure which is elevated above threshold for referral. Blood pressure above 120/80 may indicate pre-hypertension. 142/83 Patient Language: Norwegian Prescriptions: New amoxicillin-pot clavulanate 875-125 mg tablet 1 tablet PO Q12H Qty: 20 0RF Rx Instructions: take with food recommend taking either probiotic or eating Activa yogurt while taking this medication meclizine 25 mg tablet 25 mg PO BID PRN (Reason: dizziness) Qty: 20 0RF No Action ezetimibe 10 mg tablet Follow-up/Referrals: Ruchi,MAYKEL Herndon [Primary Care Provider, Unknown] Time of Disposition: 09:39 Quality [place] Coma Scale Eyes: Open Verbal: Oriented and Alert Motor: Follows Commands [place] Coma Total Score: 15
--- OUTSIDE RECORDS SUMMARY | 2025-06-14 09:35 | XMS_ITS | Encounter Summary ---
Author Organization [facility] Address 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 LAST VISIT: 07-10-05 PCP: marc. ALTERNATIVE PHONE NUMBER: [phone] WHO CALLED: Patient called. CURRENT ALLERGY LIST: [...] on filedocumented in this encounter Care Teams Unit Leader Relationship Specialty Start Date End Date Jeffery Landa DO PCP - General Internal Medicine 12/06/23 documented as of this encounter
--- OUTSIDE RECORDS SUMMARY | 2025-06-14 09:35 | XMS_ITS | Encounter Summary ---
Author Organization [facility] Address 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
--- OUTSIDE RECORDS SUMMARY | 2025-06-14 09:35 | XMS_ITS | Encounter Summary ---
Author Organization [facility] Address 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
--- OUTSIDE RECORDS SUMMARY | 2025-06-14 09:35 | XMS_ITS | Encounter Summary ---
Author Organization [facility] Address 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
--- OUTSIDE RECORDS SUMMARY | 2025-06-14 09:35 | XMS_ITS | Encounter Summary ---
Author Organization [facility] Address [address] [place] [address] Care Team Providers Care Sales Support Engineer Name Role Phone Jeffery Landa DO Primary Care Provider +1- [phone] Encounter Details Date Type Department Care Team (Late st Contact Info) Description 11/21/1998 Outpatient Historical [facility] Primary Care - [address] [place] [address] Sahil Voss MD NO ADDRESS ON FILE Social History Tobacco Use Types Packs/Day Years Used Date Smoking Tobacco: Never Assessed Comments Unknown Sex and Gender Information Value Date Recorded Sex Assigned at Not on file Legal Sex Female 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
--- OUTSIDE RECORDS SUMMARY | 2025-06-14 09:35 | XMS_ITS | Encounter Summary ---
Author Organization [facility] Address [address] [place] [address] Care Team Providers Care Glue Jointer Operator Name Role Phone Jeffery Landa DO Primary Care Provider +1- [phone] Encounter Details Date Type Department Care Team (Late st Contact Info) Description 02/06/2008 Orders Only [facility] Primary Care - [address] [place] [address] Sahil Voss MD NO ADDRESS ON FILE Social History Tobacco Use Types Packs/Day Years Used Date Smoking Tobacco: Never Assessed Comments Unknown Sex and Gender Information Value Date Recorded Sex Assigned at Not on file Legal Sex Female 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
--- OUTSIDE RECORDS SUMMARY | 2025-06-14 09:35 | XMS_ITS | Encounter Summary ---
Author Organization [facility] Address [address] [place] [address] Care Team Providers Care Explosive Ordnance Disposal Manager Name Role Phone Jeffery Landa Primary Care Provider +1- [phone] Encounter Details Date Type Department Care Team (Late st Contact Info) Description 10/06/2007 Orders Only [facility] Primary Care - [address] [place] [address] Sahil Voss MD NO ADDRESS ON FILE Social History Tobacco Use Types Packs/Day Years Used Date Smoking Tobacco: Never Assessed Comments Unknown Sex and Gender Information Value Date Recorded Sex Assigned at Not on file Legal Sex Female 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 MEDICATIONS: Patient is taking no medications at present. CHIEF COMPLAINT Patient complains of sinus congestion. and lt arm numbness HISTORY: She notes numbness lateral aspect index finger on left over period of weeks. Mild vague sxaround elbow. Neck is mildly stiff, but not painful. 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 PHYSICAL EXAMINATION: left hand 2 nd digit MUSCULOSKELETAL EXAM: HEAD AND NECK: mild muscular tenderness EXTREMITIES: LEFT LOWER EXTREMITY: No misalignment or tenderness. Full range of motion. Normal stability, strength and tone. 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 DEEP TENDON [...] on filedocumented in this encounter Care Teams Explosive Ordnance Disposal Manager Relationship Specialty Start Date End Date Jeffery Landa DO PCP - General Internal Medicine 12/06/23 documented as of this encounter
--- OUTSIDE RECORDS SUMMARY | 2025-06-14 09:35 | XMS_ITS | Encounter Summary ---
Author Organization [facility] Address 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 LAST VISIT: 07/10/05 PCP: marc. GABINO PHONE NUMBER: [phone] lmor with time. WHO CALLED: Patient called. [...] no appointments available. ofe /niki DOCTOR`S RESPONSE: alex 10/17/05 at 04:41 pm rx sinus sx. [...] on filedocumented in this encounter Care Teams Banquet Server Relationship Specialty Start Date End Date Jeffery Landa DO PCP - General Internal Medicine 12/06/23 documented as of this encounter
--- OUTSIDE RECORDS SUMMARY | 2025-06-14 09:35 | XMS_ITS | Encounter Summary ---
Author Organization [facility] Address 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 No scars, lesions, or masses. Oral mucosaunremarkable with non-inflamed posterior pharynx. NECK/THYROID: Trachea midline. [...] Electronically Signed by: Sahil Voss MD on Monday, December 25, 2006 documented in this encounter Plan of Treatment Not on file documented as of this encounter Visit Diagnoses Not on filedocumented in this encounter Care Teams Doctor Of Audiology Relationship Specialty Start Date End Date Jeffery Landa DO PCP - General Internal Medicine 12/06/23 documented as of this encounter
--- OUTSIDE RECORDS SUMMARY | 2025-06-14 09:35 | XMS_ITS | Encounter Summary ---
Author Organization [facility] Address 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
--- OUTSIDE RECORDS SUMMARY | 2025-06-14 09:35 | XMS_ITS | Encounter Summary ---
Author Organization [facility] Address 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
--- OUTSIDE RECORDS SUMMARY | 2025-06-14 09:35 | XMS_ITS | Encounter Summary ---
Author Organization [facility] Address 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
--- OUTSIDE RECORDS SUMMARY | 2025-06-14 09:35 | XMS_ITS | Encounter Summary ---
Author Organization [facility] Address [address] [place] [address] Care Team Providers Care Nailing Machine Operator Automatic Name Role Phone Jeffery Landa DO Primary Care Provider +1- [phone] Encounter Details Date Type Department Care Team (Late st Contact Info) Description 12/28/2003 Outpatient Historical [facility] Primary Care - [address] [place] [address] Sahil Voss MD NO ADDRESS ON FILE Social History Tobacco Use Types Packs/Day Years Used Date Smoking Tobacco: Never Assessed Comments Unknown Sex and Gender Information Value Date Recorded Sex Assigned at Not on file Legal Sex Female 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
--- OUTSIDE RECORDS SUMMARY | 2025-06-14 09:35 | XMS_ITS | Encounter Summary ---
Author Organization [facility] Address 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
--- OUTSIDE RECORDS SUMMARY | 2025-06-14 09:35 | XMS_ITS | Encounter Summary ---
Author Organization [facility] Address [address] [place] [address] Care Team Providers Care Telephone Maintainer Name Role Phone Sis Hopper DUST COLLECTOR OPERATOR Primary Care Provider +1 -[phone] Encounter Details Date Type Department Care Team (Late Contact Info) Description 06/01/2025 Results Follow-Up [facility] [address] [place], [place] [address] Sis Hopepr, DUST COLLECTOR OPERATOR [address] [place], [place] [id number] HEPATITIS C ANTIBODY, TSH W/REFLEX, LIPID PANEL, Additional followed-up results: 2 Social History Tobacco Use Types Packs/Day Years Used Date Smoking Tobacco: Every Day Cigarettes 1 42 Passive Smoke Exposure: Current Smokeless Tobacco: Never Alcohol Use Standard Drinks/Week Comments Not Currently 5 (1 standard drink = 0.6 oz pur e alcohol) PHQ-2 Answer Date Recorded Patient Health Questionnaire-2 Score 0 03/31/2025 Comments No Sex and Gender Information Value Date Recorded Sex Assigned at Female 03/31/2025 2:44 PM CDT Legal Sex Female 12:11 PM CDT Gender Identity Female 03/31/2025 2:44 PM CDT Sexual Orientation Not on file documented as of this encounter Plan of Treatment Upcoming Encounters Date Type Department Care Team (Late Contact Info) Description 08/30/2025 9:20 AM RN CLINICAL QUALITY Allied Health/Nurse Visit [facility] [address] [place] [address] Sis Hopper NP [address] [place], [place] [address] 06/06/2026 9:20 AM CDT Office Visit [facility] [address] [place] [address] Sis Hopper NP [address] [place] [address] documented as of this encounter Visit Diagnoses Not on filedocumented in this encounter Additional Health Concerns Assessment Noted Time PHQ-9 Depression Total Score: 13 024 11:00 AM CDT documented as of this encounter Care Teams Telephone Maintainer Relationship Specialty Start Date End Date Sis Hopper NP [address] [place] [address] [place] [address] PCP - General NURSE PRACTITIONER 05/04/24 documented as of this encounter
--- OUTSIDE RECORDS SUMMARY | 2025-06-14 09:35 | XMS_ITS | Encounter Summary ---
Author Organization [facility] Address 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
--- OUTSIDE RECORDS SUMMARY | 2025-06-14 09:35 | XMS_ITS | Encounter Summary ---
Author Organization [facility] Address [address] [place] [address] Care Team Providers Care Tongue And Quarter Stitcher Name Role Phone Jeffery Landa DO Primary Care Provider +1- [phone] Encounter Details Date Type Department Care Team (Late st Contact Info) Description 03/28/1999 Outpatient Historical [facility] Primary Care - [address] [place] [address] Sahil Voss MD NO ADDRESS ON FILE Social History Tobacco Use Types Packs/Day Years Used Date Smoking Tobacco: Never Assessed Comments Unknown Sex and Gender Information Value Date Recorded Sex Assigned at Not on file Legal Sex Female 3:35 AM CONTROL SYSTEMS ENG Gender Identity Not on file Sexual Orientation Not on file documented as of this encounter Plan of Treatment Not on file documented as of this encounter Visit Diagnoses Not on filedocumented in this encounter Care Teams Tongue And Quarter Stitcher Relationship Specialty Start Date End Date Jeffery Landa DO PCP - General Internal Medicine 12/06/23 documented as of this encounter
--- OUTSIDE RECORDS SUMMARY | 2025-06-14 09:35 | XMS_ITS | Clinical Summary ---
Author Organization [facility] Address [address] [place] [address] Care Team Providers Care Energy Infrastructure Engineer Name Role Phone Sis Hopper NP Primary Care Provider [phone] Allergies Active Allergy Reactions Criticality Noted Date Comments Azithromycin Nausea and Vomiting, GI Upset Low 07/10/2005 Morphine Nausea and Vomiting Low 07/02/2012 Prednisone Itching Low 05/04/2024 C/o itching, high blood pressure, and diarrhea Medications ezetimibe (ZETIA) 10 MG tabletIndications:M ixed hyperlipidemia Take 1 tablet (10 mg total) by mouth daily. 90 tablet Active Active Problems Problem Noted Date Diagnosed Date Microscopic hematuria 05/31/2025 Overview (05/31/2025): Chronic. Saw urology many years ago Dr. Hare without any abnormal findings found. 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 Is not ready to Quit. Had a lung cancer CT scan last year that was stable.. Due for repeat this year but pt does not want to have done this year. Has cut down on smoking from 1 PPD to 1/2 PPD. Denies chest pain, shortness of breath, cough, or hemoptysis. Assessment & Plan (05/31/2025 10:02 AM CDT): Highly encourage yearly lung cancer screen but declines this year. Encourage smoking cessation but pt is not ready to quit. Assessment & Plan (05/04/2024 12:14 PM CDT): [...] of HPV. Osteopenia, unspecified location 05/04/2024 Overview (05/31/2025): Noted on lung cancer CT scan. Smoker, hysterectomy in her 40's. DEXA May, noted osteopenia. Assessment & Plan (05/31/2025 10:04 AM CDT): Encourage weight-bearing exercise, such as walking or [...] per day ant 800IU of Vtamin D daily. Encourage smoking cessation. Assessment & Plan (05/04/2024 12:17 PM CDT): [...] Vtamin D daily Mixed hyperlipidemia 05/04/2024 Overview (05/31/2025): Last year LDL 145, HDL 55, Triglycerides 156 noted from recent labs. Was placed on Atorvastatin but did not tolerate. ASCVD risk factor is 2.6% currently with this lipid panel. Hx of CAD in father. Pt smokes and is obese. Eats poorly and does not exercise. Ct calcium score completed May, 2024 noted . Total Score: 0.781 minimal plaque, unlikely probability of significant coronary artery disease. Checking updated lipid panel fasting today. Assessment & Plan (05/31/2025 10:05 AM CDT): Encourage following a healthy well balance diet. Limit saturated and trans fats. Encourage to get plenty of lean meats in your diet and grilled fish. Recommend eating at least 2 servings of fruits and vegetables per day. Encourage to limit sugar, processed foods, and large amount of carbohydrates. Assessment & Plan (05/04/2024 12:16 PM CDT): ASCVD risk factor score low but risk factors of poor diet, obesity, smoking , and CAD in father put pt at higher risk. Will order CT calcium score at this time and follow up once back.Encourage diet and lifestyle modifications. Obesity (BMI 30.0-34.9) 08/13/2019 Overview (05/04/2024): Diet is poor and not exercising. Assessment & Plan (05/31/2025 10:03 AM CDT): Encourage diet land lifestyle modifications to help with weight loss. Assessment & Plan (05/04/2024 12:16 PM CDT): Encourage diet land lifestyle modifications to help with weight loss. Resolved Problems Problem Noted Date Diagnosed Date Resolved Date Pure hypercholesterolemia 05/04/2024 Tobacco use disorder 08/29/2006 024 Encounters Date Type Department Care Team Description 06/01/2025 Results Follow-Up [facility] Family Medicine - [place] [address] [place] [address] Sis Hopper NP HEPATITIS C ANTIBODY, TSH W/REFLEX, LIPID PANEL, Additional followed-up results: 2 06/01/2025 MyChart Message Enc [address] [place] [address] Sis Hopper NP Test results 05/31/2025 9:20 AM CDT Office Visit [address] [place] [address] Sis Hopper NP Annual (Patient presents for an adult routine exam) 05/31/2025 - 05/31/2025 11:59 PM CDT Hospital Encounter [facility] [address] [place], [place] [address]Sis Russo NP Discharge Disposition: Home or Self Care (Routine Discharge) 05/31/2025 Travel 04/29/2025 Scan [facility] Scanned, [facility] 04/15/2025 Scan [facility] Scanned, Doc Med Group CT (SCAN) 04/05/2025 Results Follow-Up [address] [place] [address] Sis Hopper NP URINALYSIS AUTO DIP, URINE BACTERIA CULTURE 04/01/[address] [place] [address] Sis Hopper NP Orders 03/31/2025 2:40 PM CDT Office Visit [address] [place] [address] Sis Hopper NP Flank Pain (Patient presents with c/o right flank pain around kidney area x 2 weeks) 03/31/2025 - 03/31/2025 11:59 PM CDT Hospital Encounter [facility] [address] [place] [address] Sis Hopper NP Discharge Disposition: Home or Self Care (Routine Discharge) 03/31/2025 Travel from Last 3 Months Immunizations Immunization Administration Dates Next Due Influenza (Generic) 07/24/2019,07/22/2014 Pneumococcal (Prevnar 20) 12/05/2022 Family History Medical History Relation Comments Heart Disease Father Kidney Disease Mother Relation Status Comments Father Mother Social History Tobacco Use Types Packs/Day Years Used Date Smoking Tobacco: Every Day Cigarettes 1 42 Passive Smoke Exposure: Current Smokeless Tobacco: Never Tobacco Cessation:Ready to Q uit: Yes; Counseling Given: Yes Alcohol Use Standard Drinks/Week Comments Not Currently 5 (1 standard drink = 0.6 oz pur e alcohol) PHQ-2 Answer Date Recorded Patient Health Questionnaire-2 Score 0 03/31/2025 Comments No Sex and Gender Information Value Date Recorded Sex Assigned at Female 03/31/2025 2:44 PM CDT Legal Sex Female 12:11 PM CDT Gender Identity Female 03/31/2025 2:44 PM CDT Sexual Orientation Not on file Last Filed Vital Signs Vital Sign Reading Time Taken Comments Blood Pressure 122/84 05/31/2025 9:40 AM CDT Pulse 80 05/31/2025 9:40 AM CDT Temperature 36.6 C (97.9 F) 05/31/2025 9:40 AM CDT Respiratory Rate 22 05/31/2025 9:40 AM CDT Oxygen Saturation 98% 05/31/2025 9:40 AM CDT Inhaled Oxygen Concentration - - Weight 79.9 kg (176 lb 3.2 oz) 05/31/2025 9:40 A M CDT Height 157.5 cm (5' 2) 05/31/2025 9:40 AM CDT Body Mass Index 32.23 05/31/2025 9:40 AM CDT Plan of Treatment Upcoming Encounters Date Type Department Care Team (Late st Contact Info) Description 08/30/2025 9:20 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 Allied Health/Nurse Visit [facility] [address] [address] Sis Hopper NP [address] [address] 06/06/2026 9:20 AM CDT Office Visit [facility] [address] [address] Sis Hopper, [employer] [facility] [employer] [address] [place] [address] Health Maintenance Due Date Last Done Comments DTaP, Tdap and Td Vaccines ( 1 - Tdap) 1981 Zoster Vaccines (1 of 2) 2012 Mammogram Screening 04/20/2025 04/20/2024, 10/11/2015 COVID-19 Vaccine (4 - 2024-2 6 season) 2025 09/18/2021, 01/16/2021, 12/19/2020 Annual Physical 05/31/2026 05/31/2025, 05/04/2024 Lung Cancer Screening 05/31/2026 06/08/2024 , 06/08/2024 Postponed from 06/08/2025 (Patient Refused) Colorectal Cancer Screening FIT-DNA (3 Years) 12/23/2026 12/24/2023, 12/24/2023 RSV Immunization or 60+ Years (1 - 1-dose 75+ series) 2037 Pneumococcal Vaccine: 50+ Years Completed 12/05/2022 PHQ-2 (Physician [place]) Completed 03/31/2025 Hepatitis C Completed 05/31/2025 Meningococcal B Vaccine Aged Out No l onger eligible based on patient's age to complete this topic Meningococcal Vaccine Aged Out No cira shemar eligible based on patient's age to complete this topic RSV Immunizations Under 20 Months Aged Out No longer eligible b ased on patient's age to complete this topic Procedures Procedure Name Priority Date/Time Associated Diagnosis Comments COLLECTION VENOUS BLOOD VENIPUNCTURE Routine 05/31/2025 10:12 AM CDT Screening for endocrine, metabolic and immunity disorder CBC W/DIFF AUTOMATED Routine 05/31/2025 10:12 AM CDT Screening for endocrine, metabolic and immunity disorder COMPREHENSIVE METABOLIC PANEL Routine 05/31/2025 10:12 AM CDT Screening for endocrine, metabolic and immunity disorder LIPID PANEL Routine 05/31/2025 10:12 AM CDT Screening for hyperlipidemia TSH W/REFLEX Routine 05/31/2025 10:12 AM CDT Screening for thyroid disorder HEPATITIS C ANTIBODY Routine 05/31/2025 10:12 AM CDT Need for hepatitis C screening test CT GENERIC 04/15/2025 URINE BACTERIA CULTURE Routine 03/31/2025 2:54 PM CDT Acute right flank pain URINALYSIS AUTO DIP Routine 03/31/2025 Acute right flank pain CT LUNG SCREENING Routine 06/08/2024 7:3 4 AM CDT Screening for lung cancer Cigarette nicotine dependence with nicotine-induced disorder MAMMOGRAM GENERIC (SCAN ORDER) 04/20/2024 COLOGUARD (SCAN ORDER) Routine 12/24/2023 from Last 3 Months or Most Recently Relevant to Health Maintenance Results * TSH W/REFLEX (05/31/2025 10:12 AM CDT) TSH 1.404 0.358 - 3.740 uIU/ML 05/31/2025 3:44 PM CDT [facility] 05/31/2025 10:1 2 AM CDT us Sis Hopepr [facility] Final Res ult [facility] [address] [place] [address], [place] [phone] * (ABNORMAL) COMPREHENSIVE METABOLIC PANEL (05/31/2025 10:12 AM CDT) SODIUM S/P/B 139 136 - 145 MMOL/L 05/31/2025 3:44 PM CDT [facility] POTASSIUM S/P/B 4.0 3.5 - 5.1 MMOL/L 05/31/2025 3:[facility] S/[facility]/B 104 98 - 107 MMOL/L 05/31/2025 3:44 PM T [facility] CO2 30.8 21 - 32 MMOL/L 05/31/2025 3:44 PM [address] [facility] GLUCOSE 94 70 - 99 MG/DL 05/31/2025 3:44 PM [address] [facility] BUN 8 7 - 18 MG/DL 05/31/2025 3:44 PM [address] [facility] CREATININE S/P/B 0.72 0.55 - 1.02 MG/DL 05/31/2025 3:44 PM [address] [facility] CALCIUM S/P/B 9.3 8.4 - 10.5 MG/DL 05/31/2025 3:44 PM [address] [facility] BILIRUBIN TOTAL S/P/B 0.5 0.2 - 1.0 MG/DL 05/31/2025 3:44 PM [address] [facility] ALKALINE PHOSPHATASE S/P/B 111 50 - 130 U/L 05/31/2025 3:44 PM [address] [facility] AST 15 15 - 37 U/L 05/31/2025 3:44 PM CDT [facility] ALT 16 14 - 59 U/L 05/31/2025 3:44 PM T [facility] TOTAL PROTEIN S/P/B 6.7 6.4 - 8.2 G/DL 05/31/2025 3:44 PM [address] [facility] ALBUMIN S/P/B 3.8 3.4 - 5.0 G/DL 05/31/2025 3:[address] PM [address] [facility] ANION GAP 4.2(L) 5 - 15 MMOL/L 05/31/2025 3:44 PM T [facility] Comment:REFERENCE RANGE NOT ESTABLISHED OSMOLALITY (CALC) 286 MOSM/KG 025 3:44 PM CDT [facility] Comment:REFERENCE RANGE NOT ESTABLISHED GFR ESTIMATE >90 >90 ML/MIN/1. 73 M2 05/31/2025 3:44 PM CDT [facility] GFR NOTES GFR REFERENCE S: 05/31/2025 3:44 PM CDT [facility] Comment: THE ESTIMATED GFR IS CALCULATED USING THE 2020 CKD-EPI EQUATION. THE FOLLOWING CATEGORIES FOR GRADING RENAL FUNCTION ARE RECOMMENDED BY THE INTERNATIONAL SOCIETY OF NEPHROLOGY (KDIGO 2012 CLINICAL PRACTICE GUIDELINE). G1,NORMAL OR HIGH: >89 ml/min/1.73 m2 G2,MILDLY DECREASED: 60-89 ml/min/1.73 m2 G3A,MILDLY TO MODERATELY DECREASED: 45-59 ml/min/1.73 m2 G3B,MODERATELY TO SEVERELY DECREASED: 30-44 ml/min/1.73 m2 G4,SEVERELY DECREASED: 15-29 ml/min/1.73 m2 G5,KIDNEY FAILURE: <15 ml/min/1.73 m2 05/31/2025 10:1 2 AM CDT us Sis Hopper [facility] Final Res ult [facility] [address] [place] [address], * (ABNORMAL) LIPID PANEL (05/31/2025 10:12 AM CDT) CHOLESTEROL 263(H) <200 MG/DL 05/31/2025 3:44 PM CDT [facility] TRIGLYCERIDES 223(H) <150 MG/DL 05/31/2025 3:44 PM CDT [facility] HDL 48 >40 MG/DL 05/31/2025 3:44 PM CDT [facility] LDL-C 170(H) <100 MG/DL 05/31/2025 3:44 PM CDT [facility] VLDL CALCULATION 45(H) 5 - 28 MG/DL 05/31/2025 3:44 PM CDT [facility] CHOL/HDL RATIO 5.5(H) 0.0 - 4.0 05/31/2025 3:44 PM CDT [facility] LDL/HDL 3.5(H) 0.41 - 2.13 05/31/2025 3:44 PM CDT [facility] NON HDL CHOLESTEROL 215(H) <140 MG/DL 05/31/2025 3:44 PM CDT [facility] 05/31/2025 10:1 2 AM CDT Sis Hopper [facility] Final Res ult Performing Organization Address City/[facility] Co de Phone Number [facility] [address] [place] [address], [place] [phone] * HEPATITIS C ANTIBODY (05/31/2025 10:12 AM CDT) Pathologist [facility] HEPATITIS C AB NON-REACTI VE NON-REACT LASHAWN 05/31/2025 9:34 PM CDT [facility] Comment: ANTIBODIES TO HCV NOT DETECTED. DOES NOT EXCLUDE THE POSSIBILITY OF EXPOSURE TO HCV. 05/31/2025 10:1 2 AM CDT Sis Hopper NP LABORATORY Final Res ult [facility] [address] [place] [address], [place] [phone] * (ABNORMAL) CBC W/DIFF AUTOMATED (05/31/2025 10:12 AM CDT) Pathologist [facility] WBC 8.10 4.00 - 10.80 x10'3/uL 05/31/2025 4:17 PM CDT [facility] RBC 4.49 4.10 - 5.40 x10'6/uL 05/31/2025 4:17 PM [address] [facility] HGB 14.3 12.0 - 16.0 G/DL 05/31/2025 4:17 PM CDT [facility] HCT 43.9 36.0 - 47.0 % 05/31/2025 4:17 PM CDT [facility] MCV 97.8 78.0 - 100.0 FL 05/31/2025 4:17 PM CD[address] [facility] MCH 31.8(H) 27.0 - 31.0 PG 05/31/2025 4:17 PM CD[address] [facility] MCHC 32.6(L) 33.0 - 36.0 G/DL 05/31/2025 4:17 PM CD[address] [facility] RDW 12.3 11.5 - 14.5 % 05/31/2025 4:17 PM CDT [facility] PLT 266 150 - 350 x10'3/uL 05/31/2025 4:17 PM CDT [facility] MPV 11.5(H) 7.4 - 10.4 FL 05/31/2025 4:17 PM CDT [facility] DIFFERENTIAL TYPE AUTOMATED DIFFERENTIAL 05/31/2025 4:17 PM CDT [facility] NEUTROPHILS % 63.2 % 05/31/2025 4:17 PM CDT [facility] LYMPHOCYTES % 30.4 % 05/31/2025 4:17 PM [address] [facility] MONOCYTES % 4.8 % 05/31/2025 4:17 PM CD[address] [facility] EOSINOPHILS % 1.0 % 05/31/2025 4:17 PM CDT [facility] BASOPHILS % 0.5 % 05/31/2025 4:17 PM CDT [facility] IMMATURE GRANS % 0.1 % 05/31/2025 4:17 PM [address] [facility] ABS. NEUTROPHILS 5.12 1.60 - 8.30 x10'3/uL 05/31/2025 4:17 PM CDT [facility] ABS. LYMPHOCYTES 2.46 0.80 - 4.70 x10'3/uL 05/31/2025 4:17 PM CDT [facility] ABS. MONOCYTES 0.39 0.00 - 1.50 x10'3/uL 05/31/2025 4:17 PM CDT [facility] ABS. EOSINOPHILS 0.08 0.00 - 0.40 x10'3/uL 05/31/2025 4:17 PM CDT [facility] ABS. BASOPHILS 0.04 0.00 - 0.20 x10'3/uL 05/31/2025 4:17 PM CDT [facility] ABS. IMMATURE GRANULOCYTES 0.01 0.00 - 0.03 x10'3/uL 05/31/2025 4:17 PM CDT [facility] 05/31/2025 10:1 2 AM CDT Sis Hopper [facility] Final Res ult [facility] [address] [place] [address], * CT GENERIC (04/15/2025) Anatomical Region Laterality Modality Other 04/15/2025 us [facility] Scanned SCANNING Final Resu lt * URINE BACTERIA CULTURE (03/31/2025 2:54 PM CDT) SPEC DESCRIPTION URINE CLEAN CATCH 03/31/2025 2:55 PM CDT [facility] SPECIAL REQUESTS NO SPECIAL REQUEST 03/31/2025 2:55 PM CDT [facility] CULTURE RESULT NO GROWTH (< OR = 1,000 CFU/ML) 04/03/2025 8:28 AM CDT [facility] URINE SPECIMEN OBTAINED BY CLEAN CATCH PROCEDURE / Unknown 03/31/2025 2:54 PM CDT 04/01/2025 3:07 PM CDT Sis Hopper [facility] MICROBIOLOGY - GENERAL OR DERABLES Final Result Performing Organization Address [facility]/ZIP Co de Phone Number [facility] [address] [place] [address], [place] [phone] * (ABNORMAL) URINALYSIS AUTO DIP (03/31/2025) COLOR (U) YELLOW YELLOW [address] [place] TRANSPARENCY CLEAR CLEAR [facility], [place] GLUCOSE (U) NEGATIVE NEGATIVE MG/DL [address], [place] BILIRUBIN (U) NEGATIVE NEGATIVE [address], [place] KETONES MG/DL (U) NEGATIVE NEGATIVE MG/DL [address], [place] SPECIFIC GRAVITY (U) 1.015 1.001 - 1.035 [address], [place] BLOOD (U) MODERATE (2+ Hemolyzed, About 50 rbc/uL)(A) NEGATIVE [address] [place] U PH 5.5 5.0 - 9.0 [address], [place] PROTEIN (U) NEGATIVE NEGATIVE mg/dL [address], [place] UROBILINOGEN 0.2 0.2 - 1.0 EU/dL = mg/dL [address], [place] NITRITES NEGATIVE NEGATIVE MG/DL [address], [place] LEUKOCYTES (U) NEGATIVE NEGATIVE [address], [place] URINE SPECIMEN OBTAINED BY CLEAN CATCH PROCEDURE / Unknown 03/31/2025 Sis Hopper NP URINE ORDERABLES Final Re sult Performing Organization Address [facility]/ZIP Co de Phone Number [address] [place] [address] [place] [address], [place] [phone] * CT LUNG SCREENING (06/08/2024 7:34 AM [...] 4:17 PM Narrative 06/11/2024 4:22 PM CDT [address] [address] EXAM: LUNG SCREENING LOW-DOSE CT THORAX WITHOUT [...] Procedure Note Hector Ashton MD - 06/11/2024 [facility] [address] [place], [place] [address] EXAM: LUNG SCREENING LOW-DOSE CT THORAX WITHOUT [...] Ashton MD, 06/11/2024 4:17 PM Sis Hopper [facility] Final Res ult * MAMMOGRAM GENERIC (SCAN ORDER) (04/20/2024) Anatomical Region Laterality Modality Other 04/20/2024 us [facility] Scanned SCANNING Final Resu lt * COLOGUARD (12/24/2023) COLOGUARD NEGATIVE [facility] ON[facility] STOOL 12/24/2023 us [facility] Scanned SCANNING Final Resu lt [facility] ONBASE from Last 3 Months or Most Recently Relevant to Health Maintenance Insurance [employer] Care Teams Energy Infrastructure Engineer Relationship Specialty Start Date End Date Sis Hopper NP [address] [place] [address] PCP - General NURSE PRACTITIONER 05/04/24
--- OUTSIDE RECORDS SUMMARY | 2025-06-14 09:35 | XMS_ITS | Encounter Summary ---
Author Organization [facility] Address [address] [place] [address] Care Team Providers Care Associate Director Of Sales Name Role Phone Jeffery Landa DO Primary Care Provider +1- [phone] Encounter Details Date Type Department Care Team (Late st Contact Info) Description 07/01/2000 Outpatient Historical [facility] Primary Care - [address] [place] [address] Sahil Voss MD NO ADDRESS ON FILE Social History Tobacco Use Types Packs/Day Years Used Date Smoking Tobacco: Never Assessed Comments Unknown Sex and Gender Information Value Date Recorded Sex Assigned at Not on file 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
--- OUTSIDE RECORDS SUMMARY | 2025-06-14 09:35 | XMS_ITS | Encounter Summary ---
Author Organization [facility] Address 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
--- OUTSIDE RECORDS SUMMARY | 2025-06-14 09:35 | XMS_ITS | Encounter Summary ---
Author Organization [facility] Address 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
--- OUTSIDE RECORDS SUMMARY | 2025-06-14 09:35 | XMS_ITS | Encounter Summary ---
Author Organization [facility] Address 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 LAST VISIT: 07-10-05 PCP: marc. ALTERNATIVE PHONE NUMBER: [phone] / [phone] WHO CALLED: Patient called. CURRENT ALLERGY LIST: [...] on filedocumented in this encounter Care Teams Mainframe Programmer Relationship Specialty Start Date End Date Jeffery Landa DO PCP - General Internal Medicine 12/06/23 documented as of this encounter
--- OUTSIDE RECORDS SUMMARY | 2025-06-14 09:35 | XMS_ITS | Encounter Summary ---
Author Organization [facility] Address [address] [place] [address] Care Team Providers Care Admissions Specialist Name Role Phone Jeffery Landa Primary Care Provider +1- [phone] Encounter Details Date Type Department Care Team (Late st Contact Info) Description 09/17/2006 Orders Only [facility] Primary Care - [address] [place] [address] Sahil Voss MD NO ADDRESS ON FILE Social History Tobacco Use Types Packs/Day Years Used Date Smoking Tobacco: Never Assessed Comments Unknown Sex and Gender Information Value Date Recorded Sex Assigned at Not on file Legal Sex Female 3:35 AM CONCRETE ANALYST Gender Identity Not on file Sexual Orientation Not on file documented as of this encounter Progress Notes * Sahil Voss MD - 07/07/2008 4:56 AM CDT TIME:11:31 am PATIENT`S HOME PHONE: PATIENT`S WORK PHONE: PATIENT`S INSURANCE: [facility] WHO TOOK THE CALL: Esther Trent A GENERAL INFORMATION PATIENT STATUS: Established Patient. LAST VISIT: 08-29-06 PCP: marc. ALTERNATIVE PHONE NUMBER: [phone] WHO CALLED: Patient called. CURRENT ALLERGY LIST: NO KNOWN ALLERGIES PHARMACY NUMBER: [phone] PROBLEMS: per pt sinus infection/congestion with yellow mucus started [place], pt denies all other symptoms, pt taking Dayquil with results SECTION 1: REQUESTED ACTION starca 09/17/06 at 11:32 am: MEDICATION REQUEST: Patient wants medications and can not come in....marycruz DOCTOR`S RESPONSE: alex 09/17/06 at 01:12 pm MEDICATIONS: Call in to Pharmacy AMOXICILLIN-POT CLAVULANATE ORAL TABLET 875-125 MG, 1 Two Times A Day, 20 Dispensed, status: CONTINUED, 09/17/2006. FINAL ACTION: jaylynw 09/17/06 at 03:24 pm Left message on patient`s recorder or with a family member 09/17/2006 at 03:24 pm. Called pharmacy at 09/17/06 at 03:24 pm. / jessie Electronically Signed by: Jessie Dietrich on Sunday, September 17, 2006 documented in this encounter Plan of Treatment Not on file documented as of this encounter Visit Diagnoses Not on filedocumented in this encounter Care Teams Admissions Specialist Relationship Specialty Start Date End Date Jeffery Landa DO PCP - General Internal Medicine 12/06/23 documented as of this encounter
--- OUTSIDE RECORDS SUMMARY | 2025-06-14 09:35 | XMS_ITS | Encounter Summary ---
Author Organization [facility] Address 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
--- OUTSIDE RECORDS SUMMARY | 2025-06-14 09:35 | XMS_ITS | Encounter Summary ---
Author Organization [facility] Address 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
--- OUTSIDE RECORDS SUMMARY | 2025-06-14 09:35 | XMS_ITS | Encounter Summary ---
Author Organization [facility] Address [address] [place] [address] Care Team Providers Care Coal Briquette Machine Operator Name Role Phone Jeffery Landa DO Primary Care Provider +1- [phone] Encounter Details Date Type Department Care Team (Late st Contact Info) Description 05/03/[address] 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
--- OUTSIDE RECORDS SUMMARY | 2025-06-14 09:35 | XMS_ITS | Encounter Summary ---
Author Organization [facility] Address 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 no dyspnea or pleuritic element.Hasused tylenol with [...] Electronically Signed by: Sahil Voss MD on , August 29, 2006 documented in this encounter Plan of Treatment Not on file documented as of this encounter Visit Diagnoses Not on filedocumented in this encounter Care Teams Account Resolution Analyst Relationship Specialty Start Date End Date Jeffery Landa DO PCP - General Internal Medicine 12/06/23 documented as of this encounter
--- OUTSIDE RECORDS SUMMARY | 2025-06-14 09:35 | XMS_ITS | Encounter Summary ---
Author Organization [facility] Address 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 ACCOUNTANT Gender Identity Not on file Sexual Orientation Not on file documented as of this encounter Plan of Treatment Not on file documented as of this encounter Procedures Procedure Name Priority Date/Time Associated Diagnosis Comments CBC WITH DIFFERENTIAL Routine 11/30/2008 6:05 AM CDT PATHOLOGY Routine 11/29/2008 5:00 PM CDT POC , URINE Routine 11/29/2008 11:15 AM CDT HEMOGLOBIN AND HEMATOCRIT Routine 11/24/2008 9:21 AM COMPANY ACCOUNTANT TYPE AND SCREEN Routine 11/24/2008 9:20 AM COMPANY ACCOUNTANT documented in this encounter Results * (ABNORMAL) CBC WITH DIFFERENTIAL (11/30/2008 6:05 AM CDT) HEMOGLOBIN 11.8 11.8 - 14.8 g/dL [facility] RDW 12.8 11.5 - 14.5 % [facility] WBC 16.0(H) 4.0 - 9.8 K/uL [facility] MCH 32.0 27.2 - 32.6 pg [facility] MPV 11.5 9.3 - 12.4 fL [facility] HEMATOCRIT 36.0 35.5 - 44.0 % [facility] RDW-STDEV 45.6 37.1 - 48.7 fL [facility] RBC 3.69(L) 3.90 - 4.90 M/uL [facility] MCHC 32.8 31.5 - 35.5 % [facility] MCV 97.6 82.0 - 99.0 fL [facility] PLATELETS 230 140 - 350 K/uL [facility] LYMPHOCYTE ABSOLUTE 1.76 0.70 - 4.50 K/uL [facility] BANDS 1 0 - 5 % [facility] METAMYELOCYTE 3(H) <=0 % [facility] BASOPHILS ABSOLUTE 0.00 0.00 - 0.20 K/uL [facility] REVIEWED ON SMEAR Plt reviewed [facility] EOSINOPHILS 0 0 - 7 % [facility] MONOCYTE ABSOLUTE 0.32 0.10 - 1.30 K/uL [facility] PLATELET EST. Consistent w/ count Normal [facility] LYMPHOCYTES 11(L) 16 - 45 % [facility] NEUTROPHIL ABSOLUTE 13.44(H) 1.90 - 7.00 K/uL [facility] NEUTROPHILS, SEG 83(H) 45 - 70 % [facility] BASOPHILS 0 0 - 2 % [facility] EOSINOPHIL ABSOLUTE 0.00 0.00 - 0.70 K/uL [facility] MONOCYTES 2(L) 3 - 13 % [facility] RBC MORPHOLOGY Normal Normal [facility] Blood specimen (specimen) 11/30/2008 6:05 AM CDT 11/30/2008 6:19 AM CDT us Sanjay Cardona MD HEMATOLOGY ORDERABLES Edited INTERFACE SYSTEM Refer to clinic/hospital department [facility] CLIA# [id number] [address] [place] [address] * PATHOLOGY (11/29/2008 5:00 PM CDT) FINAL REPORT [address] [address] Patient: COLEEN REARDON : 1960 Procedure Date: 11/29/2008 Accession Date: 11/30/2008 Case No: [id number] Ordering Dr: SANJAY CARDONA Case types AW, BW, FW, NW and SH are performed by [place], [place] SURGICAL PATHOLOGY & NON-GYNECOLOGIC CYTOPATHOLOGY REPORT [...] ovary and tube; A6-smaller ovary and tube. [facility] 11.30.2008 12:04 pm Microscopic: The slides are labeled [id number], Coleen Malcolmsalvador. The ectocervical mucosa is parakeratotic. No endocervical glandular atypia is seen. The endometrium has a proliferative pattern. The myometrium contains a small, well-circumscribed leiomyoma composed of interlacing fascicles of cytologically bland, smooth muscle cells without significant mitotic activity. One of the ovaries contains a corpus luteum and several cystic follicles. The other ovary and fallopian tubes are unremarkable. [facility] 12.01.2008 02:36 pm Staging Form: No. ELECTRONIC SIGNATURE FOR NINO GAMINO M.D.- 12/01/08 03:11 pm INTERFACE SYSTEM 11/29/2008 5:00 PM CDT us Sanjay Cardona MD PATHOLOGY/CYTOLOGY ORDERABLE S Final Result INTERFACE SYSTEM Refer to clinic/hospital department * POC , URINE (11/29/2008 11:15 AM CDT) , URINE POC Negative Negative [facility] Urine specimen (specimen) 11/29/2008 11:15 AM CDT 11/29/2008 11:15 AM CDT Sanjay Cardona MD POINT OF CARE TESTING Final Result Performing Organization Address [facility] de Phone Number INTERFACE SYSTEM Refer to clinic/hospital department [facility] CLIA# [id number] [address] [place] [address] * (ABNORMAL) HEMOGLOBIN AND HEMATOCRIT (11/24/2008 9:21 AM COMPANY ACCOUNTANT) HEMATOCRIT 44.2(H) 35.5 - 44.0 % [facility] HEMOGLOBIN 14.5 11.8 - 14.8 g/dL [facility] Blood specimen (specimen) 11/24/2008 9:21 AM COMPANY ACCOUNTANT 11/24/2008 9:50 AM COMPANY ACCOUNTANT Result [facility] Sanjay Cardona MD HEMATOLOGY ORDERABLES Final Result Performing Organization Address [facility] Phone Number INTERFACE SYSTEM Refer to clinic/hospital department [facility] CLIA# [id number] [address] [place] [address] * TYPE AND SCREEN (11/24/2008 9:20 AM COMPANY ACCOUNTANT) HISTORY CHECK No Historical ABO/Rh [facility] SPECIMEN LIFE 3 days from OR date [facility] ABO/RH TYPE A Positive [facility] ANTIBODY SCREEN Negative [facility] Blood specimen (specimen) 11/24/2008 9:20 AM COMPANY ACCOUNTANT Sanjay Cardona MD BLOOD BANK ORDERABLES Edited INTERFACE SYSTEM Refer to clinic/hospital department [facility] CLIA# [id number] [address] [place] [address] documented in this encounter Visit Diagnoses Not on filedocumented in this encounter Care Teams Knitting Tester Relationship Specialty Start Date End Date Jeffery Landa DO PCP - General Internal Medicine 12/06/23 documented as of this encounter
--- OUTSIDE RECORDS SUMMARY | 2025-06-14 09:35 | XMS_ITS | Encounter Summary ---
Author Organization [facility] Address 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
--- OUTSIDE RECORDS SUMMARY | 2025-06-14 09:35 | XMS_ITS | Encounter Summary ---
Author Organization [facility] Address [address] [place] [address] Care Team Providers Care Field Kiln Burner Name Role Phone Jeffery Landa DO Primary Care Provider +1- [phone] Encounter Details Date Type Department Care Team (Late st Contact Info) Description 08/29/2006 Outpatient [facility] Primary Care - [address] [place] [address] Sahil Voss MD NO ADDRESS ON FILE Social History Tobacco Use Types Packs/Day Years Used Date Smoking Tobacco: Never Assessed Comments Unknown Sex and Gender Information Value Date Recorded Sex Assigned at Not on file Legal Sex Female 3:35 AM HIM CLERK Gender Identity Not on file Sexual Orientation Not on file documented as of this encounter Last Filed Vital Signs Vital Sign Reading Time Taken Comments Blood Pressure 120/80 08/29/2006 3:00 PM HIM CLERK Pulse - - Temperature 37.2 C (98.9 F) 08/29/2006 3:00 PM HIM CLERK Respiratory Rate - - Oxygen Saturation - - Inhaled Oxygen Concentration - - Weight 66.2 kg (146 lb) 08/29/2006 3:00 PM HIM CLERK Height - - Body Mass Index - - documented in this encounter Plan of Treatment Not on file documented as of this encounter Visit Diagnoses Not on filedocumented in this encounter Care Teams Field Kiln Burner Relationship Specialty Start Date End Date Jeffery Landa DO PCP - General Internal Medicine 12/06/23 documented as of this encounter
--- OUTSIDE RECORDS SUMMARY | 2025-06-14 09:35 | XMS_ITS | Encounter Summary ---
Author Organization [facility] Address 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
--- OUTSIDE RECORDS SUMMARY | 2025-06-14 09:35 | XMS_ITS | Encounter Summary ---
Author Organization [facility] Address [address] [place] [address] Care Team Providers Care Rhia Name Role Phone Jeffery Landa DO Primary Care Provider +1- [phone] Encounter Details Date Type Department Care Team (Latest Contact Info) Description 11/17/2008 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
--- OUTSIDE RECORDS SUMMARY | 2025-06-14 09:35 | XMS_ITS | Encounter Summary ---
Author Organization [facility] Address 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
--- OUTSIDE RECORDS SUMMARY | 2025-06-14 09:35 | XMS_ITS | Encounter Summary ---
Author Organization [facility] Address [facility] [place] [address] Care Team Providers Care Cottrell Blower Name Role Phone Sis Hopper NP Primary Care Provider +1 -[phone] Encounter Details Date Type Department Care Team (Late st Contact Info) Description 06/01/2024 Leeo Message Enc [facility] Family Medicine - [place] [address] [facility] [address] [place] [address] 004184 Sis Hopper NP [address] [place] [address] Psychiatrist Social History Tobacco Use Types Packs/Day [...] on file documented as of this encounter Functional Status * Over the past 2 weeks, how often have you been bothered by any of the following problems? Question Answer Date of Assessment Author Status Little interest or pleasure in doing things More than half the days 06/01/2024 11:00 AM Bethany Ornelas MA Active Feeling down, depressed, or hopeless Several days 06/01/2024 11:00 AM Bethany Ornelas MA Active Patient Health Questionnaire-2 Score 3 06/01/2024 11:00 AM Bethany Ornelas MA Active * Question Answer Date of Assessment Author Status Trouble falling or staying asleep, or sleeping too much More than half the days 06/01/2024 11:00 AM Bethany Ornelas MA Active Feeling tired or having little energy More than half the days 06/01/2024 11:00 AM Bethany Ornelas MA Active Poor appetite or overeating More than half the days 06/01/2024 11:00 AM Bethany Ornelas MA Active Feeling bad about yourself - or that you are a failure or have let yourself or your family down More than half the days 06/01/2024 11:00 AM Bethany Ornelas MA Active Trouble concentrating on things, such as reading the newspaper or watching television More than half the days 06/01/2024 11:00 AM Bethany Ornelas MA Active Moving or speaking so slowly that other people could have noticed? Or the opposite - being so fidgety or restless that you have been moving around a lot more than usual. Not at all 06/01/2024 11:00 AM Bethany Ornelas MA Active Thoughts that you would be better off or hurting yourself in some way Not at all 06/01/2024 11:00 AM Bethany Ornelas MA Active Patient Health Questionnaire-9 Score 13 06/01/2024 11:00 AM Bethany Ornelas MA Active * If you checked off any problems on this questionnaire so far, Question Answer Date of Assessment Author Status How difficult have these problems made it for you to do your work, take care of things at home, or get along with other people? Not difficult at all 06/01/2024 11:00 AM Bethany Ornelas MA Active * Over the last 2 weeks, how often have you been bothered by any of the following problems? Question Answer Date of Assessment Author Status Feeling nervous, anxious, or on edge 2 06/01/2024 11:00 AM CDT Bethany Carlson MA Act rachelle Not being able to stop or control worrying 3 06/01/2024 11:00 AM CDT Bethany Carlson MA Ac tive Worrying too much about different things 3 06/01/2024 11:00 AM CDT Bethany Carlson MA Ac tive Trouble relaxing 2 06/01/2024 11:00 AM CDT Bethany Carlson MA Active Being so restless that it is hard to sit still 0 06/01/2024 11:00 AM CDT Bethany Carlson M A Active Becoming easily annoyed or irritable 0 06/01/2024 11:00 AM CDT Bethany Carlson MA Act rachelle Feeling afraid as if something awful might happen 2 06/01/2024 11:00 AM CDT Bethany Carlson MA Act rachelle CHRISTOPHER-7 Total Score 12 06/01/2024 11:00 AM CDT Bethany Carlson MA Active documented as of this encounter Plan of Treatment Upcoming Encounters Date Type Department Care Team (Late st Contact Info) Description 08/30/2025 9:20 AM ANTICHECKING IRON WORKER Allied Health/Nurse Visit [facility] Medicine - [place] [address] [address] Sis Hopper NP [address] [facility] [address] [place] [address] 06/06/2026 9:20 AM CDT Office Visit [facility] Family Medicine - [place] [address] [facility] [address] [place] [address] Sis Hopper NP [address] [place], [place] [id number] documented as of this encounter Visit Diagnoses Not on filedocumented in this encounter Additional Health Concerns Assessment Noted Time PHQ-9 Depression Total Score: 13 024 11:00 AM CDT documented as of this encounter Care Teams Cottrell Blower Relationship Specialty Start Date End Date Sis Hopper NP [address] [place] [address] PCP - General NURSE PRACTITIONER 05/04/24 documented as of this encounter
--- OUTSIDE RECORDS SUMMARY | 2025-06-14 09:35 | XMS_ITS | Encounter Summary ---
Author Organization [facility] Address 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
--- OUTSIDE RECORDS SUMMARY | 2025-06-14 09:35 | XMS_ITS | Encounter Summary ---
Author Organization [facility] Address [address] [place] [address] Care Team Providers Care Sql Developer Dba Name Role Phone Jeffery Landa DO Primary Care Provider +1- [phone] Encounter Details Date Type Department Care Team (Late st Contact Info) Description 02/01/2003 Outpatient Historical [facility] Primary Care - [address] [place] [address] Sanjay Canchola MD [address] [facility] [place] [address] Social History Tobacco Use Types Packs/Day Years Used Date Smoking Tobacco: Never Assessed Comments Unknown Sex and Gender Information Value Date Recorded Sex Assigned at Not on file Legal Sex Female 3:35 AM CIRCUS RIDER Gender Identity Not on file Sexual Orientation Not on file documented as of this encounter Plan of Treatment Not on file documented as of this encounter Visit Diagnoses Not on filedocumented in this encounter Care Teams Sql Developer Dba Relationship Specialty Start Date End Date Jeffery Landa DO PCP - General Internal Medicine 12/06/23 documented as of this encounter
--- OUTSIDE RECORDS SUMMARY | 2025-06-14 09:35 | XMS_ITS | Encounter Summary ---
Author Organization [facility] Address [address] [place] [address] Care Team Providers Care Intercell Connector Placer Name Role Phone Jeffery Landa DO Primary Care Provider +1- [phone] Encounter Details Date Type Department Care Team (Late st Contact Info) Description 08/20/2001 Outpatient Historical [facility] Primary Care - [address] [place] [address] Sahil Voss MD NO ADDRESS ON FILE Social History Tobacco Use Types Packs/Day Years Used Date Smoking Tobacco: Never Assessed Comments Unknown Sex and Gender Information Value Date Recorded Sex Assigned at Not on file Legal 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
--- OUTSIDE RECORDS SUMMARY | 2025-06-14 09:35 | XMS_ITS | Encounter Summary ---
Author Organization [facility] Address 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
--- OUTSIDE RECORDS SUMMARY | 2025-06-14 09:35 | XMS_ITS | Encounter Summary ---
Author Organization [facility] Address [address] [place] [address] Care Team Providers Care Flatlock Sewing Machine Operator Name Role Phone Jeffery Landa DO Primary Care Provider +1- [phone] Encounter Details Date Type Department Care Team (Late st Contact Info) Description 12/03/[address] 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
--- OUTSIDE RECORDS SUMMARY | 2025-06-14 09:35 | XMS_ITS | Encounter Summary ---
Author Organization [facility] Address [address] [place] [address] Care Team Providers Care Weigh Boss Name Role Phone Jeffery Landa DO Primary Care Provider +1- [phone] Encounter Details Date Type Department Care Team (Late st Contact Info) Description 08/13/2003 Outpatient Historical [facility] Primary Care - [address] [place] [address] Sahil Voss MD NO ADDRESS ON FILE Social History Tobacco Use Types Packs/Day Years Used Date Smoking Tobacco: Never Assessed Comments Unknown Sex and Gender Information Value Date Recorded Sex Assigned at Not on file Legal Sex Female 3:35 AM SALT MINER Gender Identity Not on file Sexual Orientation Not on file documented as of this encounter Plan of Treatment Not on file documented as of this encounter Visit Diagnoses Not on filedocumented in this encounter Care Teams Weigh Boss Relationship Specialty Start Date End Date Jeffery Landa DO PCP - General Internal Medicine 12/06/23 documented as of this encounter
--- OUTSIDE RECORDS SUMMARY | 2025-06-14 09:35 | XMS_ITS | Encounter Summary ---
Author Organization [facility] Address [facility] [place] [address] Care Team Providers Care Coding Specialist Name Role Phone Sis Hopper NP Primary Care Provider +1 -[phone] Encounter Details Date Type Department Care Team (Late Contact Info) Description 05/07/2024 MyChart Message Enc [facility] Family [facility] [address] [place], [place] [id number] Sis Hopper NP [address] [place] [address] mammogram Social History Tobacco Use Types Packs/Day [...] st Contact Info) Description 08/30/2025 9:20 AM LINUX NETWORK SYSTEMS ADMINISTRATOR Allied Health/Nurse Visit [facility] [address] [place] [address] Sis Hopper NP [address] [place] [address] 06/06/2026 9:20 AM CDT Office Visit [facility] Family Medicine - Rajendra [address] [place] [address] Sis Hopper NP [address] [place] [address] documented as of this encounter Visit Diagnoses Not on filedocumented in this encounter Care Teams Coding Specialist Relationship Specialty Start Date End Date Sis Hopper NP [address] [place] [address] PCP - General NURSE PRACTITIONER 05/04/24 documented as of this encounter
--- OUTSIDE RECORDS SUMMARY | 2025-06-14 09:35 | XMS_ITS | Encounter Summary ---
Author Organization [facility] Address 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
--- OUTSIDE RECORDS SUMMARY | 2025-06-14 09:35 | XMS_ITS | Clinical Summary ---
Author Organization [facility] Address [address] [place] [address] Phone Care Team Providers Care Real Estate Clerk Name Role Phone Jeffery Landa Primary Care Provider +1- [phone] Allergies Active Allergy Reactions Criticality Noted Date [...] Voss MD Referring Provider: Sanjay Cardona MD [address] [place] [id number] Other: Problem Noted Date Diagnosed Date History [...] NOS 05/02/2005 05/27/2012 DEPRESSIVE DISORDER NEC 05/02/200512/2011 Immunizations Immunization Administration Dates Next Due (PREVNAR 20)(6 WKS UP) PNEUM OCOCCAL CONJUGATE VACCINE 20-VALENT (PCV20), POLYSACCHARIDE [id number] CONJUGATE, ADJUVANT 0.5 ML (PF) IM 12/05/2022 [...] file Legal Sex Female 3:35 AM CLINICAL RESEARCH PHYSICIAN Gender Identity Not on file Sexual Orientation [...] 1:34 PM CDT Height 160 cm (5' 3) 12/09/2023 1:34 PM CDT Body Mass Index 30.65 12/09/2023 1:34 PM CDT Plan of Treatment Health Maintenance Due Date Last Done Comments DTAP/TDAP/TD VACCINES (1 - Tdap) 1981 FIT/FOBT Q 1 year 2007 Flex Sig/CT Colonography Q 5 years 2007 ZOSTER VACCINE (1 of 2) 2012 COLORECTAL SCREENING 08/12/2020 08/12/2015 BREAST CANCER SCREENING 10/08/2023 10/08/19, 07/03/2021, 10/11/2015, Additional history exists Colorectal Cancer Screening 12/25/2023 INFLUENZA VACCINE (#1) 2025 07/24/2019, 2013 FIT-DNA Q 3 years 12/23/2026 12/24/2023 RSV VACCINE (60+ or ) (1 - 1-dose 75+ series) 2037 Lung Cancer Screening Discontinued 12/24/2022 Procedures Procedure Name Priority Date/Time Associated Diagnosis Comments COLON CANCER SCREEN, STOOL DNA Routine 12/24/2023 1:00 PM CDT Screening for colorectal cancer CT LUNG SCREENING (LDCT BASELINE OR ANNUAL) Routine 12/24/2022 1:42 PM CDT Cigarette nicotine dependence without complication Current smoker MAMMO DIAGNOSTIC BILATERAL W OR WO CAD Routine 10/08/2022 from Last 3 Months or Most Recently Relevant to Health Maintenance Results * COLON CANCER SCREEN, STOOL DNA (12/24/2023 1:00 PM CDT) COLOGUARD RESULT Negative Negative [facility] Comment: NEGATIVE TEST RESULT. A negative [...] Valero et al, N Engl J Med 2014;370(14):6695-9290) The normal value (reference range) for this assay is negative. COLOGUARD RE-SCREENING RECOMMENDATION: Periodic colorectal cancer screening is an important part of preventive healthcare for asymptomatic individuals at average risk for colorectal cancer. Following a negative Cologuard result, the [employer] Society and U.S. Multi-Society Task Force screening guidelines recommend a Cologuard re-screening interval of 3 years. References: [employer] Society Guideline for Colorectal Cancer Screening: https://www.cancer.org/cancer/rfyfe-iwzbvp-ywkbsy/gjjzodgai-lmkzzjrhg-jplooyu/ac s-rec ommendations.html.; Carrington DK, Nathan CARRANZA, Wes BruceK, Colorectal Cancer Screening: Recommendations for Physicians and Patients from the U.S. Multi-Society Task Force on Colorectal Cancer Screening , Am J Gastroenterology 2017; 112:0955-7243. TEST DESCRIPTION: Composite algorithmic analysis of stool [...] (Liset Marin al, N Engl J Med 2014;370(14):4915-6243.) Cologuard may produce a false negative or false positive result (no colorectal cancer or precancerous polyp present at colonoscopy follow up). A negative Cologuard test result does not guarantee the absence of CRC or advanced adenoma (pre-cancer). The current Cologuard screening interval is every 3 years. ([place] Cancer Society and U.S. Multi-Society Task Force). Cologuard performance data in a 10,000 patient pivotal study using colonoscopy as the reference method can be accessed at the following location: www.[employer]/results. Additional description of the Cologuard test process, warnings and precautions can be found at www.[employer]ing. Stool STOOL SPECIMEN / Unknown 12/24/2023 1:00 PM CDT 12/25/2023 3:01 PM CDT Jeffery Landa DO BODY FLUIDS AND STOOLS Fin al Result [facility] # [id number] [address] [place] [address] * CT LUNG SCREENING (LDCT BASELINE OR ANNUAL) (12/24/2022 1:42 PM CDT) Anatomical Region Laterality Modality Chest Computed Tomogra phy 12/24/2022 1:35 PM CDT Impressions 12/25/2022 11:46 AM CDT IMPRESSION: 1. Lung RADS category 2, benign. RECOMMENDATION: 1. Continue annual screening with low dose CT in 12 months. DICTATION LOCATION: [address] Narrative 12/25/2022 11:[address] [...] changes throughout the spine. Procedure Note Panchito Joy, DO - 12/25/2022 CT LUNG SCREENING WITH [...] CT in 12 months. DICTATION LOCATION: Location [address] [place] [address]. us Natalie Moore PURCHASING/RECEIVING CT ORDERABLES Final Resul t * MAMMO DIAGNOSTIC BILATERAL W OR WO CAD (10/08/2022) Anatomical Region Laterality Modality Breast Bilateral Mammography us Abstract Provider MAMMO ORDERABLES Edited Result - Final from Last 3 Months or Most Recently Relevant to Health Maintenance Insurance Advance Directives For more information, please contact: [phone] * Full Code (Latest Code Status on File) Date Activated Date Inactivated Comments 08/12/2015 8:42 AM 08/12/2015 12:34 PM * Full Code Date Activated Date Inactivated Comments 07/07/2012 11:02 AM 07/07/2012 4:47 PM * Full Code Date Activated Date Inactivated Comments 07/07/2012 9:47 AM 07/07/2012 11:02 AM * Full Code Date Activated Date Inactivated Comments 07/07/2012 9:06 AM 07/07/2012 9:47 AM Care Teams Real Estate Clerk Relationship Specialty Start Date End Date Jeffery Landa DO PCP - General Internal Medicine 12/06/23
--- OUTSIDE RECORDS SUMMARY | 2025-06-14 09:36 | XMS_ITS | Encounter Summary ---
Author Organization [facility] Address [address] [place] [address] Care Team Providers Care Ibm Bpm Architect Name Role Phone Jeffery Landa Primary Care Provider +1- [phone] Encounter Details Date Type Department Care Team (Late st Contact Info) Description 09/08/[address] 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 LAST VISIT: PCP: marc. ALTERNATIVE PHONE NUMBER: [phone] WHO CALLED: Patient called. CURRENT ALLERGY LIST: [facility] NUMBER: [id number] SECTION 1: REQUESTED ACTION cortez 09/08/07 at 10:16 am: gives abd cramping MEDICATION REQUEST: Patient requests a change in current medication. MEDICATIONS: ZITHROMAX Z-JACKOSN ORAL TABLET 250 MG, use as directed, [...] on filedocumented in this encounter Care Teams Ibm Bpm Architect Relationship Specialty Start Date End Date Jeffery Landa DO PCP - General Internal Medicine 12/06/23 documented as of this encounter
--- OUTSIDE RECORDS SUMMARY | 2025-06-14 09:36 | XMS_ITS | Encounter Summary ---
Author Organization [facility] Address [facility] [place] [address] Care Team Providers Care House Worker General Name Role Phone Sis Hopper NP Primary Care Provider +1 -[phone] Encounter Details Date Type Department Care Team (Late Contact Info) Description 06/08/2024 MyChart Message Enc [facility] [address] [place], [place] [id number] Sis Hopper NP [address] [place] [address] bone density Social History Tobacco Use Types [...] st Contact Info) Description 08/30/2025 9:20 AM CHISEL GRINDER Allied Health/Nurse Visit [facility] [address] [place] [address] Sis Hopper NP [address] [place] [address] [place] [address] 06/06/2026 9:20 AM CDT Office Visit [facility] Family Medicine - Rajendra [address] [facility] [address] [place] [address] Sis Hopper NP [address] [place] [address] documented as of this encounter Visit Diagnoses Not on filedocumented in this encounter Additional Health Concerns Assessment Noted Time PHQ-9 Depression Total Score: 13 024 11:00 AM CDT documented as of this encounter Care Teams House Worker General Relationship Specialty Start Date End Date Sis Hopper NP [address] [place] [address] PCP - General NURSE PRACTITIONER 05/04/24 documented as of this encounter
--- OUTSIDE RECORDS SUMMARY | 2025-06-14 09:36 | XMS_ITS | Encounter Summary ---
Author Organization [facility] Address [address] [place] [address] Care Team Providers Care Remote Operations Producer Name Role Phone Jeffery Landa DO Primary Care Provider +1- [phone] Encounter Details Date Type Department Care Team (Late st Contact Info) Description 07/21/2007 Outpatient Historical [facility] Primary Care - [address] [place] [address] Sahil Voss MD NO ADDRESS ON FILE Social History Tobacco Use Types Packs/Day Years Used Date Smoking Tobacco: Never Assessed Comments Unknown Sex and Gender Information Value Date Recorded Sex Assigned at Not on file Legal Sex Female 3:35 AM GAMBLING MONITOR Gender Identity Not on file Sexual Orientation [...] on filedocumented in this encounter Care Teams Remote Operations Producer Relationship Specialty Start Date End Date Jeffery Landa DO PCP - General Internal Medicine 12/06/23 documented as of this encounter
--- OUTSIDE RECORDS SUMMARY | 2025-06-14 09:36 | XMS_ITS | Encounter Summary ---
Author Organization [facility] Address 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 [facility] PHONE NUMBER: [phone] or [phone] WHO CALLED: Patient called. CURRENT ALLERGY LIST: [...] rx called out to pharm---ao DOCTOR`S RESPONSE: alex 09/05/07 at 04:55 pm she can refill [...] on filedocumented in this encounter Care Teams Ceo Relationship Specialty Start Date End Date Jeffery Landa DO PCP - General Internal Medicine 12/06/23 documented as of this encounter
--- OUTSIDE RECORDS SUMMARY | 2025-06-14 09:36 | XMS_ITS | Encounter Summary ---
Author Organization [facility] Address [address] [place] [address] Care Team Providers Care Supervisor Stage Carpentry Name Role Phone Jeffery Landa DO Primary Care Provider +1- [phone] Encounter Details Date Type Department Care Team (Late st Contact Info) Description 10/06/2007 Outpatient [facility] Primary Care - [address] [place] [address] Social History Tobacco Use Types Packs/Day Years Used Date Smoking Tobacco: Never Assessed Comments Unknown Sex and Gender Information Value Date Recorded Sex Assigned at Not on file Legal Sex Female 3:35 AM LINING INSERTER Gender Identity Not on file Sexual Orientation Not on file documented as of this encounter Last Filed Vital Signs Vital Sign Reading Time Taken Comments Blood Pressure 110/80 10/06/2007 2:30 PM LINING INSERTER Pulse - - Temperature 37 C (98.6 F) 10/06/2007 2:30 PM LINING INSERTER Respiratory Rate - - Oxygen Saturation - - Inhaled Oxygen Concentration - - Weight 71.3 kg (157 lb 2 oz) 10/06/2007 2:30 PM LINING INSERTER Height - - Body Mass Index - - documented in this encounter Plan of Treatment Not on file documented as of this encounter Visit Diagnoses Not on filedocumented in this encounter Care Teams Supervisor Stage Carpentry Relationship Specialty Start Date End Date Jeffery Landa DO PCP - General Internal Medicine 12/06/23 documented as of this encounter
== END 2025-06-14 09:42 | disposition home or self-care (01) ==
PROVIDERS: Emergency Provider Registered Nurse; PCP Nurse Practitioner
DX: H66.92 Otitis media, unspecified, left ear (principal); F17.210 Nicotine dependence, cigarettes, uncomplicated; E78.00 Pure hypercholesterolemia, unspecified
CPT/HCPCS: 99213; G0463

== ENCOUNTER 2025-07-12 09:29 | Outpatient (CLI) | payer OTHER, SELFPAY ==
--- NOTE | ~2025-07-12 | MM_ITS ---
EXAMINATION: MM screening [facility] BI w sp HISTORY: Screening TECHNIQUE: Craniocaudal and mediolateral oblique 3-D tomosynthesis images were obtained and synthetic 2-D images were generated. CAD analysis was submitted and interpreted. COMPARISON: Comparison to multiple prior studies sequentially, with oldest reviewed study dated 07/03/2021. BREAST PARENCHYMAL COMPOSITION: Not dense: There are scattered areas of fibroglandular density. FINDINGS: There is no evidence of suspicious mass, calcification, or architectural distortion to suggest malignancy in either breast. There has been no suspicious interval change. IMPRESSION: 1. No mammographic evidence of malignancy. 2. Recommend routine screening mammography in one year. BI-RADS Category 1: Negative Reviewed, dictated and finalized at location O.
== END 2025-07-12 09:30 | disposition home or self-care (01) ==
LOC: MICIMG 09:30
PROVIDERS: PCP Nurse Practitioner; Visit Provider Nurse Practitioner
DX: Z12.31 Encounter for screening mammogram for malignant neoplasm of breast (principal)
CPT/HCPCS: 77063; 77067